=== PATIENT | male | born 1935 | race African-American/Black ===

== ENCOUNTER 2019-04-10 10:56 | Emergency (ER) | payer MEDICARE, BC | END 2019-04-10 12:14 | disposition home or self-care (01) | LOC: ERS 10:56 | DX: H10.022 Other mucopurulent conjunctivitis, left eye (principal); I10 Essential (primary) hypertension | CPT/HCPCS: 99283 ==

== ENCOUNTER 2020-01-13 13:25 | Outpatient (CLI) | payer MEDICARE, BC ==
--- NOTE | 2020-01-13 15:12 | MRI ---
EXAM: MRI of the pelvis/prostate without and with contrast HISTORY: Family history of prostate cancer with elevated PSA COMPARISON: None TECHNIQUE: Multiplanar multisequence MR images were obtained of the pelvis without and with IV contra st. Evaluation of this exam was performed with a student[employer] workstation. FINDINGS: There is a 2.2 cm area of low T2 signal within the right aspect of the prostate extending from the ap ex to the mid gland. This involves both the central gland and peripheral zone. This demonstrates restricted diffusion and low signal on ADC map. This also demonstrates enhancement with washout martínez cteristics. Seminal vesicles: Intact without abnormality Neurovascular bundles: Intact Pelvic lymph nodes: No pelvic adenopathy Other visualized intrapelvic structures: Unremarkable Osseous structures: No marrow signal abnormality IMPRESSION: PI-RADS Category 5-very high likelihood that a clinically significant cancer is present.
== END 2020-01-13 13:26 | disposition home or self-care (01) ==
LOC: TBSIIMAG 13:25
PROVIDERS: ATTEND Urology
DX: R97.20 Elevated prostate specific antigen [PSA] (principal)
CPT/HCPCS: 72197

== ENCOUNTER 2020-07-23 19:57 | Emergency (ER) | payer MEDICARE, BC ==
[2020-07-23 20:41] LABS: #Lymphocytes 1.8 thou/uL (1.20-3.40); #Monocytes 0.5 thou/uL (0.11-0.59); #Neutrophils 6.7 thou/uL (1.40-6.50); %Basophils 0.2 % (0.0-1.0); %Eosinophils 0.4 % (0.0-10.0); %Lymphocytes 19.7 % (21.0-51.0); %Monocytes 5.4 % (0.0-10.0); %Neutrophils 74.3 % (42.0-75.0); Hemoglobin 14.4 g/dL (14.0-18.0); Mean Corpuscular HGB CONC 32.7 g/dL (32.0-36.0); Mean Corpuscular Hemoglobin 29.1 pg (27.0-31.0); Mean Corpuscular Volume 89.1 fL (78.0-98.0); Mean Platelet Volume 10.8 fL (7.4-10.4); Platelet Count 205 thou/uL (130-400); RBC Distribution Width 14.4 % (11.5-14.5); Red Blood Cell (RBC) Count 4.96 mill/uL (4.70-6.10)
[2020-07-23 20:57] LABS: ALT (SGPT) 13 U/L (8-55); AST (SGOT) 16 U/L (5-34); Albumin 3.9 g/dL (3.4-4.8); Alkaline Phosphatase 99 U/L (40-110); Anion Gap 17 mmol/L (10-20); BUN (Urea Nitrogen) 26 mg/dL (8.4-25.7); Bilirubin, Total 0.7 mg/dL (0.2-1.2); Calc. Creatinine Clearance 0 mL/min (70-130); Calcium 9.6 mg/dL (7.8-10.44); Carbon Dioxide 20 mmol/L (23-31); Chloride 107 mmol/L (98-107); Globulin 4.1 g/dL (2.4-3.5); Glucose 112 mg/dL (83-110); Potassium 3.9 mmol/L (3.5-5.1); Sodium 140 mmol/L (136-145)
[2020-07-23 21:48] LABS: Bacteria/HPF 4+ HPF (None Seen); Bilirubin Negative (Negative); Blood, Urine 1+ (Negative); Clarity Clear (Clear); Glucose, Urine (Dipstick) Normal (Negative); Ketone, Urine Negative (Negative); Leukocyte 500 Leu/uL (Negative); Nitrite 2+ (Negative); Protein, Urine (Dipstick) 70 mg/dL (Neg-Trace); RBC/HPF 0-3 HPF (0-3); Specific Gravity, Urine 1.021 (1.002-1.036); Squamous Epithelial 0-3 HPF (0-3); Urobilinogen Normal mg/dL (Less than 2); WBC/HPF 21-50 HPF (0-3); pH, Urine 5.5 (5.0-9.0)
[2020-07-23] MEDS ORDERED: cefTRIAXone\\ROCEPHIN 1 GM VIAL ONE (23:32)
== END 2020-07-24 00:09 | disposition home or self-care (01) ==
LOC: ERS 19:57
DX: N12 Tubulo-interstitial nephritis, not specified as acute or chronic (principal); E78.5 Hyperlipidemia, unspecified; E78.00 Pure hypercholesterolemia, unspecified; I10 Essential (primary) hypertension; Z79.82 Long term (current) use of aspirin; Z79.899 Other long term (current) drug therapy
CPT/HCPCS: 36415; 36416; 51701; 80053; 81003; 81015; 83605; 83880; 84484; 85025; 85379; 87077; 87086; 87186; 93005; 96365; J0696

== ENCOUNTER 2020-07-27 10:53 | Inpatient (IN) | payer MEDICARE, BC ==
[2020-07-27] MEDS ORDERED: cefTRIAXone\\ROCEPHIN 2 GM VIAL ONE (11:09)
[2020-07-27 11:19] LABS: Bacteria/HPF None Seen HPF (None Seen); Bilirubin Negative (Negative); Blood, Urine 1+ (Negative); Clarity Clear (Clear); Glucose, Urine (Dipstick) Normal (Negative); Ketone, Urine Negative (Negative); Leukocyte Negative Leu/uL (Negative); Nitrite Negative (Negative); Protein, Urine (Dipstick) 200 mg/dL (Neg-Trace); RBC/HPF 0-3 HPF (0-3); Specific Gravity, Urine 1.024 (1.002-1.036); Squamous Epithelial 0-3 HPF (0-3); Urobilinogen Normal mg/dL (Less than 2); WBC/HPF 0-3 HPF (0-3)
[2020-07-27] MEDS ORDERED: VANCOMYCIN 2 GRAM/400 ML BAG 2 GM in Premix Bag 1 BAG IVPB SCH (11:30)
[2020-07-27 11:45] LABS: Hemoglobin 13.4 g/dL (14.0-18.0); Mean Corpuscular HGB CONC 29.9 g/dL (32.0-36.0); Mean Corpuscular Hemoglobin 26.4 pg (27.0-31.0); Mean Corpuscular Volume 88.1 fL (78.0-98.0); Mean Platelet Volume 10.9 fL (7.4-10.4); Platelet Count 217 thou/uL (130-400); RBC Distribution Width 14.4 % (11.5-14.5); Red Blood Cell (RBC) Count 5.06 mill/uL (4.70-6.10); White Blood Cell (WBC) Count 10.6 thou/uL (4.8-10.8)
[2020-07-27 12:07] LABS: ALT (SGPT) 11 U/L (8-55); AST (SGOT) 19 U/L (5-34); Albumin 3.4 g/dL (3.4-4.8); Alkaline Phosphatase 79 U/L (40-110); Anion Gap 16 mmol/L (10-20); BUN (Urea Nitrogen) 20 mg/dL (8.4-25.7); CK (CPK) 57 U/L (30-200); Calc. Creatinine Clearance 0 mL/min (70-130); Calcium 9.3 mg/dL (7.8-10.44); Carbon Dioxide 19 mmol/L (23-31); Chloride 109 mmol/L (98-107); Globulin 4.4 g/dL (2.4-3.5); Glucose 143 mg/dL (83-110); Potassium 4.4 mmol/L (3.5-5.1); Protein, Total 7.8 g/dL (5.8-8.1); Sodium 140 mmol/L (136-145)
[2020-07-27 12:10] LABS: #Lymphocytes 1.7 thou/uL (1.20-3.40); #Monocytes 0.9 thou/uL (0.11-0.59); %Basophils 0.2 % (0.0-1.0); %Eosinophils 0.1 % (0.0-10.0); %Lymphocytes 16.1 % (21.0-51.0); %Monocytes 8.4 % (0.0-10.0); %Neutrophils 75.3 % (42.0-75.0); Elliptocytes MODERATE= 6-15 cells (100X) (0-1/hpf); MDiff Complete? YES; Platelet Morphology Comment Appears Adequate
[2020-07-27 12:45] LABS: CKMB 0.4 ng/mL (0-6.6)
[2020-07-27] MEDS ORDERED: Azithromycin 500 MG VIAL ONE (13:38)
[2020-07-27] MEDS ORDERED: Diltiazem 125 MG/25 ML ONE (13:54)
[2020-07-27] MEDS ORDERED: Acetaminophen 650 MG Suppository PR PRN (15:30)
[2020-07-27 15:43] LABS: INR-International Normal Ratio 1.9; PTT 40.7 sec (22.9-36.1); Prothrombin Time 22.1 sec (12.0-14.7)
[2020-07-27] MEDS ORDERED: Aspirin Chewable 81 MG TAB ONE (16:05)
[2020-07-27 17:32] LABS: CKMB 0.7 ng/mL (0-6.6)
[2020-07-27 18:46] VITALS: BMI 34.0
[2020-07-27 18:48] LABS: Magnesium 1.9 mg/dL (1.6-2.6); Phosphorus 2.7 mg/dL (2.3-4.7)
[2020-07-27] MEDS: Cefepime 2 GM in Sodium Chloride 0.9% 100 ML IVPB SCH (20:43)
[2020-07-27] MEDS ORDERED: Warfarin Sodium 2 MG TAB PO SCH (21:30)
[2020-07-27] MEDS: Colchicine 0.6 MG TAB PO SCH (21:43)
[2020-07-28 01:46] LABS: SARS-CoV-2 PCR by NAA Not Detected (NotDetected)
[2020-07-28 04:46] LABS: #Lymphocytes 1.2 thou/uL (1.20-3.40); #Monocytes 0.7 thou/uL (0.11-0.59); #Neutrophils 8.4 thou/uL (1.40-6.50); %Basophils 0.2 % (0.0-1.0); %Eosinophils 0.1 % (0.0-10.0); %Lymphocytes 11.4 % (21.0-51.0); %Monocytes 6.7 % (0.0-10.0); %Neutrophils 81.6 % (42.0-75.0); Hemoglobin 14.2 g/dL (14.0-18.0); Mean Corpuscular HGB CONC 33.1 g/dL (32.0-36.0); Mean Corpuscular Hemoglobin 29.5 pg (27.0-31.0); Mean Corpuscular Volume 89.3 fL (78.0-98.0); Mean Platelet Volume 10.6 fL (7.4-10.4); Platelet Count 193 thou/uL (130-400); RBC Distribution Width 14.2 % (11.5-14.5); Red Blood Cell (RBC) Count 4.79 mill/uL (4.70-6.10); White Blood Cell (WBC) Count 10.3 thou/uL (4.8-10.8)
[2020-07-28 05:01] LABS: INR-International Normal Ratio 2.3; Prothrombin Time 25.6 sec (12.0-14.7)
[2020-07-28 05:09] LABS: Anion Gap 15 mmol/L (10-20); BUN (Urea Nitrogen) 19 mg/dL (8.4-25.7); Calc. Creatinine Clearance 82 mL/min (70-130); Calcium 9.6 mg/dL (7.8-10.44); Carbon Dioxide 19 mmol/L (23-31); Chloride 111 mmol/L (98-107); Glucose 144 mg/dL (83-110); Potassium 4.1 mmol/L (3.5-5.1); Sodium 141 mmol/L (136-145)
[2020-07-28] MEDS ORDERED: FLU VACC QS2020-21(65YR UP)/PF 240 MCG/0.7 ML SYRINGE IM ONE (09:00)
[2020-07-28] MEDS: Cefepime 2 GM in Sodium Chloride 0.9% 100 ML IVPB SCH ×2 (09:11→22:07)
[2020-07-28] MEDS: Acetaminophen 325 MG TAB PO PRN ×2 (10:05→23:08)
[2020-07-28] MEDS: Colchicine 0.6 MG TAB PO SCH ×2 (10:05→23:02)
[2020-07-28] MEDS: Diltiazem 125 MG in Sodium Chloride 0.9% 100 ML IVPB SCH (12:06)
[2020-07-28] MEDS: VANCOMYCIN 2 GRAM/400 ML BAG 2 GM in Premix Bag 1 BAG IVPB SCH (12:59)
[2020-07-28] MEDS ORDERED: Warfarin Sodium 3 MG TAB PO SCH (17:00)
[2020-07-28] MEDS: Senokot S 8.6-50 MG TAB PO PRN (18:26)
[2020-07-28] MEDS ORDERED: Furosemide 20 MG/2 ML VIAL SLOW IVP SCH (18:30)
[2020-07-28] MEDS: Atorvastatin Calcium 10 MG TAB PO SCH (22:07)
[2020-07-28] MEDS ORDERED: Aspirin 325 mg Enteric Coated Tablet PO SCH (22:45)
[2020-07-29] MEDS: Senokot S 8.6-50 MG TAB PO PRN (03:43)
[2020-07-29 04:32] LABS: #Eosinphils 0.2 thou/uL (0.0-0.7); #Lymphocytes 1.3 thou/uL (1.20-3.40); #Monocytes 0.6 thou/uL (0.11-0.59); #Neutrophils 7.6 thou/uL (1.40-6.50); %Basophils 0.2 % (0.0-1.0); %Eosinophils 1.8 % (0.0-10.0); %Lymphocytes 13.7 % (21.0-51.0); %Monocytes 6.3 % (0.0-10.0); %Neutrophils 78.1 % (42.0-75.0); Hemoglobin 12.8 g/dL (14.0-18.0); Mean Corpuscular HGB CONC 32.7 g/dL (32.0-36.0); Mean Corpuscular Hemoglobin 29.1 pg (27.0-31.0); Mean Corpuscular Volume 89.1 fL (78.0-98.0); Mean Platelet Volume 10.4 fL (7.4-10.4); Platelet Count 201 thou/uL (130-400); RBC Distribution Width 14.2 % (11.5-14.5); Red Blood Cell (RBC) Count 4.41 mill/uL (4.70-6.10); White Blood Cell (WBC) Count 9.7 thou/uL (4.8-10.8)
[2020-07-29 04:39] LABS: INR-International Normal Ratio 3.2; Prothrombin Time 33.4 sec (12.0-14.7)
[2020-07-29 04:51] LABS: Anion Gap 13 mmol/L (10-20); BUN (Urea Nitrogen) 27 mg/dL (8.4-25.7); Calc. Creatinine Clearance 73 mL/min (70-130); Calcium 9.3 mg/dL (7.8-10.44); Carbon Dioxide 19 mmol/L (23-31); Chloride 109 mmol/L (98-107); Glucose 127 mg/dL (83-110); Potassium 3.7 mmol/L (3.5-5.1); Sodium 137 mmol/L (136-145)
[2020-07-29] MEDS: Furosemide 20 MG/2 ML VIAL SLOW IVP SCH ×2 (05:25→14:03)
[2020-07-29] MEDS: Acetaminophen 325 MG TAB PO PRN (05:29)
[2020-07-29] MEDS: Cefepime 2 GM in Sodium Chloride 0.9% 100 ML IVPB SCH ×2 (09:06→09:10)
[2020-07-29] MEDS: Colchicine 0.6 MG TAB PO SCH ×2 (11:04→22:13)
[2020-07-29 11:44] LABS: Vancomycin, Trough 12.5 ug/mL
[2020-07-29] MEDS: Vancomycin 1 GM in Premix Bag 1 BAG IVPB SCH (14:04)
[2020-07-29] MEDS: Diltiazem 125 MG in Sodium Chloride 0.9% 100 ML IVPB SCH (16:09)
[2020-07-29] MEDS: VANCOMYCIN 2 GRAM/400 ML BAG 2 GM in Premix Bag 1 BAG IVPB SCH (16:38)
[2020-07-29] MEDS ORDERED: Warfarin Sodium 2 MG TAB PO SCH (17:00)
[2020-07-29] MEDS ORDERED: Potassium Chloride 20 MEQ TAB PO SCH (19:00)
[2020-07-29] MEDS: Atorvastatin Calcium 10 MG TAB PO SCH (22:13)
[2020-07-30] MEDS: Vancomycin 1 GM in Premix Bag 1 BAG IVPB SCH ×2 (00:24→14:18)
[2020-07-30 04:33] LABS: #Eosinphils 0.3 thou/uL (0.0-0.7); #Lymphocytes 1.1 thou/uL (1.20-3.40); #Monocytes 0.5 thou/uL (0.11-0.59); #Neutrophils 5.6 thou/uL (1.40-6.50); %Basophils 0.2 % (0.0-1.0); %Eosinophils 3.6 % (0.0-10.0); %Lymphocytes 14.9 % (21.0-51.0); %Monocytes 6.1 % (0.0-10.0); %Neutrophils 75.2 % (42.0-75.0); Mean Corpuscular HGB CONC 31.6 g/dL (32.0-36.0); Mean Corpuscular Hemoglobin 28.1 pg (27.0-31.0); Mean Corpuscular Volume 88.8 fL (78.0-98.0); Mean Platelet Volume 9.9 fL (7.4-10.4); Platelet Count 213 thou/uL (130-400); Red Blood Cell (RBC) Count 4.26 mill/uL (4.70-6.10); White Blood Cell (WBC) Count 7.4 thou/uL (4.8-10.8)
[2020-07-30 04:41] LABS: INR-International Normal Ratio 2.8; Prothrombin Time 30.2 sec (12.0-14.7)
[2020-07-30 04:57] LABS: Anion Gap 12 mmol/L (10-20); BUN (Urea Nitrogen) 27 mg/dL (8.4-25.7); Calc. Creatinine Clearance 80 mL/min (70-130); Calcium 8.8 mg/dL (7.8-10.44); Carbon Dioxide 21 mmol/L (23-31); Chloride 109 mmol/L (98-107); Glucose 118 mg/dL (83-110); Potassium 3.8 mmol/L (3.5-5.1); Sodium 138 mmol/L (136-145)
[2020-07-30] MEDS: Furosemide 20 MG/2 ML VIAL SLOW IVP SCH ×2 (06:24→14:18)
[2020-07-30] MEDS: Finasteride 5 MG TAB PO SCH (08:58)
[2020-07-30] MEDS: Cefepime 2 GM in Sodium Chloride 0.9% 100 ML IVPB SCH ×2 (08:58→20:30)
[2020-07-30] MEDS: Aspirin 81 mg Enteric Coated Tablet PO SCH (08:58)
[2020-07-30] MEDS: Colchicine 0.6 MG TAB PO SCH (11:53)
[2020-07-30] MEDS: Warfarin Sodium 2 MG TAB PO SCH (17:05)
[2020-07-30] MEDS ORDERED: Fleet Enema 133 ML BOT PR PRN (18:36)
[2020-07-30] MEDS ORDERED: Bisacodyl 10 MG SUPP PR PRN (18:36)
[2020-07-30] MEDS: Atorvastatin Calcium 10 MG TAB PO SCH (20:30)
[2020-07-30] MEDS: Senokot S 8.6-50 MG TAB PO SCH (20:31)
[2020-07-31 00:19] LABS: Vancomycin, Trough 17.1 ug/mL
[2020-07-31] MEDS: Colchicine 0.6 MG TAB PO SCH ×3 (01:00→23:37)
[2020-07-31] MEDS: Vancomycin 1 GM in Premix Bag 1 BAG IVPB SCH (01:16)
[2020-07-31 04:26] LABS: #Eosinphils 0.2 thou/uL (0.0-0.7); #Lymphocytes 1.2 thou/uL (1.20-3.40); #Monocytes 0.5 thou/uL (0.11-0.59); #Neutrophils 5.3 thou/uL (1.40-6.50); %Basophils 0.5 % (0.0-1.0); %Lymphocytes 16.3 % (21.0-51.0); %Monocytes 6.7 % (0.0-10.0); %Neutrophils 73.5 % (42.0-75.0); Hemoglobin 12.3 g/dL (14.0-18.0); Mean Corpuscular HGB CONC 30.1 g/dL (32.0-36.0); Mean Corpuscular Hemoglobin 26.7 pg (27.0-31.0); Mean Corpuscular Volume 88.7 fL (78.0-98.0); Mean Platelet Volume 9.9 fL (7.4-10.4); Platelet Count 236 thou/uL (130-400); RBC Distribution Width 13.9 % (11.5-14.5); White Blood Cell (WBC) Count 7.1 thou/uL (4.8-10.8)
[2020-07-31 04:29] LABS: INR-International Normal Ratio 2.6; Prothrombin Time 28.5 sec (12.0-14.7)
[2020-07-31 04:44] LABS: Anion Gap 11 mmol/L (10-20); BUN (Urea Nitrogen) 25 mg/dL (8.4-25.7); Calc. Creatinine Clearance 88 mL/min (70-130); Calcium 8.7 mg/dL (7.8-10.44); Carbon Dioxide 22 mmol/L (23-31); Chloride 108 mmol/L (98-107); Glucose 140 mg/dL (83-110); Potassium 3.5 mmol/L (3.5-5.1); Sodium 137 mmol/L (136-145)
[2020-07-31] MEDS: Cefdinir 300 MG CAP PO SCH ×2 (08:32→20:35)
[2020-07-31] MEDS: Finasteride 5 MG TAB PO SCH (08:33)
[2020-07-31] MEDS: Senokot S 8.6-50 MG TAB PO SCH ×2 (08:33→20:35)
[2020-07-31] MEDS: Polyethylene Glycol 3350 17 GM Packet PO SCH (08:33)
[2020-07-31] MEDS: Aspirin 81 mg Enteric Coated Tablet PO SCH (08:33)
[2020-07-31] MEDS: Furosemide 20 MG TAB PO SCH ×2 (08:33→15:00)
[2020-07-31] MEDS: Warfarin Sodium 2 MG TAB PO SCH (16:56)
[2020-07-31] MEDS: Atorvastatin Calcium 10 MG TAB PO SCH (20:34)
[2020-08-01 06:36] LABS: #Eosinphils 0.2 thou/uL (0.0-0.7); #Lymphocytes 1.4 thou/uL (1.20-3.40); #Monocytes 0.6 thou/uL (0.11-0.59); %Eosinophils 3.8 % (0.0-10.0); %Lymphocytes 22.6 % (21.0-51.0); %Monocytes 9.8 % (0.0-10.0); %Neutrophils 63.8 % (42.0-75.0); Hemoglobin 11.9 g/dL (14.0-18.0); Mean Corpuscular HGB CONC 30.9 g/dL (32.0-36.0); Mean Corpuscular Hemoglobin 27.5 pg (27.0-31.0); Mean Corpuscular Volume 89.2 fL (78.0-98.0); Mean Platelet Volume 9.6 fL (7.4-10.4); Platelet Count 242 thou/uL (130-400); RBC Distribution Width 13.9 % (11.5-14.5); Red Blood Cell (RBC) Count 4.33 mill/uL (4.70-6.10); White Blood Cell (WBC) Count 6.3 thou/uL (4.8-10.8)
[2020-08-01 06:44] LABS: INR-International Normal Ratio 2.4; Prothrombin Time 26.9 sec (12.0-14.7)
[2020-08-01 07:01] LABS: Anion Gap 13 mmol/L (10-20); BUN (Urea Nitrogen) 24 mg/dL (8.4-25.7); Calc. Creatinine Clearance 92 mL/min (70-130); Calcium 8.6 mg/dL (7.8-10.44); Carbon Dioxide 21 mmol/L (23-31); Chloride 107 mmol/L (98-107); Glucose 115 mg/dL (83-110); Potassium 3.6 mmol/L (3.5-5.1); Sodium 137 mmol/L (136-145)
[2020-08-01] MEDS: Senokot S 8.6-50 MG TAB PO SCH ×2 (08:07→21:46)
[2020-08-01] MEDS: Aspirin 81 mg Enteric Coated Tablet PO SCH (08:07)
[2020-08-01] MEDS: Cefdinir 300 MG CAP PO SCH ×2 (08:07→21:46)
[2020-08-01] MEDS: Finasteride 5 MG TAB PO SCH (08:07)
[2020-08-01] MEDS: Furosemide 20 MG TAB PO SCH ×2 (08:07→13:44)
[2020-08-01] MEDS: Polyethylene Glycol 3350 17 GM Packet PO SCH (08:26)
[2020-08-01] MEDS: Colchicine 0.6 MG TAB PO SCH (10:42)
[2020-08-01] MEDS: Warfarin Sodium 2 MG TAB PO SCH (16:46)
[2020-08-01] MEDS: Atorvastatin Calcium 10 MG TAB PO SCH (21:46)
[2020-08-02] MEDS: Colchicine 0.6 MG TAB PO SCH ×4 (00:07→22:07)
[2020-08-02 06:11] LABS: Prothrombin Time 22.6 sec (12.0-14.7)
[2020-08-02] MEDS: Aspirin 81 mg Enteric Coated Tablet PO SCH (10:14)
[2020-08-02] MEDS: Cefdinir 300 MG CAP PO SCH ×2 (10:14→21:28)
[2020-08-02] MEDS: Senokot S 8.6-50 MG TAB PO SCH ×2 (10:15→21:15)
[2020-08-02] MEDS: Polyethylene Glycol 3350 17 GM Packet PO SCH (10:15)
[2020-08-02] MEDS: Finasteride 5 MG TAB PO SCH (10:15)
[2020-08-02] MEDS: Furosemide 20 MG TAB PO SCH ×2 (10:15→15:12)
[2020-08-02] MEDS: Warfarin Sodium 2.5 MG TAB PO SCH (16:46)
[2020-08-02] MEDS: Atorvastatin Calcium 10 MG TAB PO SCH (21:28)
[2020-08-03 06:02] LABS: INR-International Normal Ratio 2.1; Prothrombin Time 23.6 sec (12.0-14.7)
[2020-08-03] MEDS: Polyethylene Glycol 3350 17 GM Packet PO SCH (08:21)
[2020-08-03] MEDS: Senokot S 8.6-50 MG TAB PO SCH ×2 (08:21→20:34)
[2020-08-03] MEDS: Colchicine 0.6 MG TAB PO SCH ×2 (08:21→23:17)
[2020-08-03] MEDS: Aspirin 81 mg Enteric Coated Tablet PO SCH (08:24)
[2020-08-03] MEDS: Furosemide 20 MG TAB PO SCH ×2 (08:24→14:12)
[2020-08-03] MEDS: Cefdinir 300 MG CAP PO SCH ×2 (08:24→20:34)
[2020-08-03] MEDS: Multivitamin W/ Minerals 1 TAB PO SCH (08:24)
[2020-08-03] MEDS: Finasteride 5 MG TAB PO SCH (08:25)
[2020-08-03] MEDS: Allopurinol 100 MG TAB PO SCH (08:25)
[2020-08-03] MEDS ORDERED: Tamsulosin HCl 0.4 MG CAP PO SCH (09:00)
[2020-08-03 09:11] LABS: Anion Gap 11 mmol/L (10-20); BUN (Urea Nitrogen) 19 mg/dL (8.4-25.7); Calc. Creatinine Clearance 100 mL/min (70-130); Calcium 9.2 mg/dL (7.8-10.44); Carbon Dioxide 26 mmol/L (23-31); Chloride 106 mmol/L (98-107); Glucose 113 mg/dL (83-110); Potassium 3.5 mmol/L (3.5-5.1); Sodium 139 mmol/L (136-145)
[2020-08-03] MEDS: Warfarin Sodium 2.5 MG TAB PO SCH (17:24)
[2020-08-03] MEDS: Atorvastatin Calcium 10 MG TAB PO SCH (20:35)
[2020-08-03] MEDS ORDERED: Doxazosin Mesylate 4 MG TAB PO SCH (21:00)
[2020-08-03] MEDS ORDERED: Non-Formulary Item 1 EACH (Doxazosin Mesylate [Cardura] 8 MG Tablet) PO SCH (21:00)
[2020-08-04 07:10] VITALS: BP 135/89; TEMP 98.1
[2020-08-04 07:19] LABS: Anion Gap 10 mmol/L (10-20); BUN (Urea Nitrogen) 21 mg/dL (8.4-25.7); Calc. Creatinine Clearance 86 mL/min (70-130); Calcium 8.6 mg/dL (7.8-10.44); Carbon Dioxide 24 mmol/L (23-31); Chloride 108 mmol/L (98-107); Glucose 118 mg/dL (83-110); Potassium 3.3 mmol/L (3.5-5.1); Sodium 139 mmol/L (136-145)
[2020-08-04] MEDS: Cefdinir 300 MG CAP PO SCH (08:40)
[2020-08-04] MEDS: Aspirin 81 mg Enteric Coated Tablet PO SCH (08:40)
[2020-08-04] MEDS: Multivitamin W/ Minerals 1 TAB PO SCH (08:41)
[2020-08-04] MEDS: Senokot S 8.6-50 MG TAB PO SCH (08:41)
[2020-08-04] MEDS: Finasteride 5 MG TAB PO SCH (08:41)
[2020-08-04] MEDS: Polyethylene Glycol 3350 17 GM Packet PO SCH (08:41)
[2020-08-04] MEDS: Furosemide 20 MG TAB PO SCH ×2 (08:41→14:21)
[2020-08-04] MEDS: Allopurinol 100 MG TAB PO SCH (08:41)
[2020-08-04] MEDS: Colchicine 0.6 MG TAB PO SCH (12:10)
== END 2020-08-04 16:05 | disposition swing bed (61) | DRG 871 ==
LOC: ERS 10:53 → 2NO 14:24 → T4-A 07-31 15:59
PROVIDERS: ADMIT Internal Medicine; ATTEND Internal Medicine
DX: A41.9 Sepsis, unspecified organism (principal); I50.33 Acute on chronic diastolic (congestive) heart failure; J18.9 Pneumonia, unspecified organism; I13.0 Hypertensive heart and chronic kidney disease with heart failure and stage 1 through stage 4 chronic kidney disease, or unspecified chronic kidney disease; L03.114 Cellulitis of left upper limb; I48.92 Unspecified atrial flutter; I48.19 Other persistent atrial fibrillation; N30.00 Acute cystitis without hematuria; I24.8 Other forms of acute ischemic heart disease; Z20.822 Contact with and (suspected) exposure to COVID-19; E78.5 Hyperlipidemia, unspecified; I25.10 Atherosclerotic heart disease of native coronary artery without angina pectoris; M10.9 Gout, unspecified; N40.0 Benign prostatic hyperplasia without lower urinary tract symptoms; E78.00 Pure hypercholesterolemia, unspecified; N18.9 Chronic kidney disease, unspecified; I35.0 Nonrheumatic aortic (valve) stenosis; Z28.21 Immunization not carried out because of patient refusal; Z95.5 Presence of coronary angioplasty implant and graft; Z79.890 Hormone replacement therapy; Z79.01 Long term (current) use of anticoagulants; Z79.899 Other long term (current) drug therapy; Z79.82 Long term (current) use of aspirin; Z87.898 Personal history of other specified conditions
CPT/HCPCS: 36415; 36416; 51701; 70450; 70551; 71045; 80048; 80053; 80202; 81003; 81015; 82550; 82553; 83605; 83735; 83880; 84100; 84484; 84550; 85025; 85379; 85610; 85730; 87040; 87077; 87086; 87186; 87633; 87635; 87798; 93005; 96365; 96366; 96367; 96375; J0456; J0692; J0696; J1940; J3370; J3490; U0003; U0005

== ENCOUNTER 2020-09-10 14:51 | Inpatient (IN) | payer MEDICARE, BC ==
[2020-09-10 15:30] LABS: #Lymphocytes 1.1 thou/uL (1.20-3.40); #Monocytes 0.6 thou/uL (0.11-0.59); #Neutrophils 6.6 thou/uL (1.40-6.50); %Basophils 0.1 % (0.0-1.0); %Eosinophils 0.4 % (0.0-10.0); %Lymphocytes 13.1 % (21.0-51.0); %Monocytes 6.8 % (0.0-10.0); %Neutrophils 79.6 % (42.0-75.0); Hemoglobin 13.2 g/dL (14.0-18.0); Mean Corpuscular HGB CONC 31.8 g/dL (32.0-36.0); Mean Corpuscular Hemoglobin 28.1 pg (27.0-31.0); Mean Corpuscular Volume 88.4 fL (78.0-98.0); Mean Platelet Volume 10.1 fL (7.4-10.4); Platelet Count 234 thou/uL (130-400); RBC Distribution Width 14.8 % (11.5-14.5); Red Blood Cell (RBC) Count 4.69 mill/uL (4.70-6.10); White Blood Cell (WBC) Count 8.3 thou/uL (4.8-10.8)
[2020-09-10 15:50] LABS: ALT (SGPT) 10 U/L (8-55); AST (SGOT) 17 U/L (5-34); Albumin 3.6 g/dL (3.4-4.8); Alkaline Phosphatase 94 U/L (40-110); Anion Gap 16 mmol/L (10-20); BUN (Urea Nitrogen) 12 mg/dL (8.4-25.7); Bilirubin, Total 0.9 mg/dL (0.2-1.2); CK (CPK) 35 U/L (30-200); Calc. Creatinine Clearance 0 mL/min (70-130); Calcium 9.6 mg/dL (7.8-10.44); Carbon Dioxide 20 mmol/L (23-31); Chloride 107 mmol/L (98-107); Globulin 3.6 g/dL (2.4-3.5); Glucose 206 mg/dL (83-110); Potassium 3.8 mmol/L (3.5-5.1); Protein, Total 7.2 g/dL (5.8-8.1); Sodium 139 mmol/L (136-145)
[2020-09-10 17:33] LABS: Bacteria/HPF None Seen HPF (None Seen); Bilirubin Negative (Negative); Blood, Urine Negative (Negative); Clarity Clear (Clear); Glucose, Urine (Dipstick) Normal (Negative); Ketone, Urine Negative (Negative); Leukocyte Negative Leu/uL (Negative); Nitrite Negative (Negative); Protein, Urine (Dipstick) 50 mg/dL (Neg-Trace); RBC/HPF 0-3 HPF (0-3); Specific Gravity, Urine 1.015 (1.002-1.036); Squamous Epithelial 0-3 HPF (0-3); Urobilinogen Normal mg/dL (Less than 2); WBC/HPF 0-3 HPF (0-3); pH, Urine 6.5 (5.0-9.0)
[2020-09-10] MEDS ORDERED: Metoprolol Tartrate 50 MG TAB ONE (18:18)
[2020-09-10 19:22] LABS: Troponin I 0.016 ng/mL (< 0.028)
[2020-09-10] MEDS ORDERED: Ondansetron ODT 4 MG TAB SL PRN (20:15)
[2020-09-10] MEDS ORDERED: Acetaminophen 325 MG TAB PO PRN (20:15)
[2020-09-10] MEDS ORDERED: Ondansetron PF 4 MG/2 ML Vial IVP PRN (20:15)
[2020-09-10 21:59] LABS: Troponin I 0.016 ng/mL (< 0.028)
[2020-09-10] MEDS ORDERED: Furosemide 40 MG/4 ML VIAL SLOW IVP SCH (22:30)
[2020-09-11 01:15] LABS: SARS-CoV-2 PCR by NAA Not Detected (NotDetected)
[2020-09-11] MEDS ORDERED: Warfarin Sodium 2 MG TAB PO SCH (09:00)
[2020-09-11] MEDS ORDERED: Lisinopril 20 MG TAB PO SCH (09:00)
[2020-09-11] MEDS: Amlodipine 5 MG TAB PO SCH (09:57)
[2020-09-11] MEDS: Aspirin Chewable 81 MG TAB PO SCH (09:57)
[2020-09-11] MEDS: Polyethylene Glycol 3350 17 GM Packet PO SCH (09:57)
[2020-09-11] MEDS: Finasteride 5 MG TAB PO SCH (09:58)
[2020-09-11] MEDS: Furosemide 40 MG/4 ML VIAL SLOW IVP SCH (10:12)
[2020-09-11 10:54] LABS: INR-International Normal Ratio 1.4; Prothrombin Time 17.6 sec (12.0-14.7)
[2020-09-11] MEDS: Warfarin Sodium 2 MG TAB PO SCH (16:02)
[2020-09-11] MEDS ORDERED: Cyclobenzaprine 10 MG TAB PO SCH (18:15)
[2020-09-11] MEDS: Atorvastatin Calcium 10 MG TAB PO SCH (20:05)
[2020-09-11] MEDS ORDERED: Simvastatin 20 MG TAB PO SCH (21:00)
[2020-09-11] MEDS ORDERED: Metoprolol Tartrate 5 MG/5 ML VIAL IVP SCH (21:45)
[2020-09-11] MEDS: Diclofenac 1% 100 GM GEL TP SCH (21:50)
[2020-09-11 22:46] LABS: Anion Gap 18 mmol/L (10-20); BUN (Urea Nitrogen) 20 mg/dL (8.4-25.7); Calc. Creatinine Clearance 73 mL/min (70-130); Calcium 9.7 mg/dL (7.8-10.44); Carbon Dioxide 22 mmol/L (23-31); Chloride 104 mmol/L (98-107); Glucose 118 mg/dL (83-110); Magnesium 1.8 mg/dL (1.6-2.6); Potassium 3.6 mmol/L (3.5-5.1); Sodium 140 mmol/L (136-145)
[2020-09-11] MEDS ORDERED: Magnesium 2 GM/50 ML 2 GM in Premix Bag 1 BAG IVPB SCH (23:15)
[2020-09-11] MEDS ORDERED: Diltiazem 125 MG in Sodium Chloride 0.9% 100 ML IVPB SCH (23:30)
[2020-09-11] MEDS: Potassium Chloride 20 MEQ TAB PO SCH (23:32)
[2020-09-12] MEDS ORDERED: Acetaminophen 650 MG Suppository PR PRN (00:20)
[2020-09-12] MEDS: Potassium Chloride 20 MEQ TAB PO SCH (00:35)
[2020-09-12] MEDS ORDERED: Diltiazem 125 MG in Sodium Chloride 0.9% 100 ML IVPB SCH ×2 (00:39→01:35)
[2020-09-12 00:58] LABS: #Lymphocytes 1.4 thou/uL (1.20-3.40); #Monocytes 0.7 thou/uL (0.11-0.59); #Neutrophils 7.7 thou/uL (1.40-6.50); %Basophils 0.1 % (0.0-1.0); %Eosinophils 0.2 % (0.0-10.0); %Lymphocytes 13.9 % (21.0-51.0); %Monocytes 7.3 % (0.0-10.0); %Neutrophils 78.5 % (42.0-75.0); Hemoglobin 13.2 g/dL (14.0-18.0); Mean Corpuscular HGB CONC 31.8 g/dL (32.0-36.0); Mean Corpuscular Hemoglobin 28.3 pg (27.0-31.0); Mean Corpuscular Volume 88.9 fL (78.0-98.0); Mean Platelet Volume 10.3 fL (7.4-10.4); Platelet Count 239 thou/uL (130-400); RBC Distribution Width 14.8 % (11.5-14.5); Red Blood Cell (RBC) Count 4.67 mill/uL (4.70-6.10); White Blood Cell (WBC) Count 9.8 thou/uL (4.8-10.8)
[2020-09-12 01:14] LABS: Lactic Acid 2.3 mmol/L (0.5-2.2)
[2020-09-12] MEDS: Potassium Chloride 20 MEQ in Premix Bag 1 BAG IVPB SCH ×2 (01:16→03:28)
[2020-09-12] MEDS ORDERED: Cefepime 1 GM in Sodium Chloride 0.9% 100 ML IVPB SCH (02:00)
[2020-09-12] MEDS ORDERED: Digoxin 0.5 MG/2 ML AMP SLOW IVP SCH (02:15)
[2020-09-12] MEDS ORDERED: Vancomycin 1 GM in Premix Bag 1 BAG IVPB SCH (03:00)
[2020-09-12 04:35] LABS: INR-International Normal Ratio 1.8
[2020-09-12 04:51] LABS: Anion Gap 15 mmol/L (10-20); BUN (Urea Nitrogen) 23 mg/dL (8.4-25.7); Calc. Creatinine Clearance 62 mL/min (70-130); Calcium 9.2 mg/dL (7.8-10.44); Carbon Dioxide 21 mmol/L (23-31); Chloride 105 mmol/L (98-107); Glucose 159 mg/dL (83-110); Magnesium 2.2 mg/dL (1.6-2.6); Potassium 3.9 mmol/L (3.5-5.1); Sodium 137 mmol/L (136-145)
[2020-09-12] MEDS: Aspirin Chewable 81 MG TAB PO SCH (10:07)
[2020-09-12] MEDS: Polyethylene Glycol 3350 17 GM Packet PO SCH (10:07)
[2020-09-12] MEDS: Amlodipine 5 MG TAB PO SCH (10:26)
[2020-09-12] MEDS ORDERED: Furosemide 20 MG/2 ML VIAL SLOW IVP SCH (10:30)
[2020-09-12] MEDS: Finasteride 5 MG TAB PO SCH (10:35)
[2020-09-12] MEDS: Diclofenac 1% 100 GM GEL TP SCH ×4 (10:39→21:38)
[2020-09-12] MEDS: Furosemide 40 MG/4 ML VIAL SLOW IVP SCH (10:40)
[2020-09-12] MEDS: Warfarin Sodium 2 MG TAB PO SCH (17:00)
[2020-09-12] MEDS: Acetaminophen 325 MG TAB PO PRN (17:32)
[2020-09-12] MEDS: Atorvastatin Calcium 10 MG TAB PO SCH (20:44)
[2020-09-12 22:00] LABS: Bilirubin Negative (Negative); Blood, Urine Trace (Negative); Clarity Turbid (Clear); Glucose, Urine (Dipstick) Normal (Negative); Ketone, Urine Negative (Negative); Leukocyte 500 Leu/uL (Negative); Mucous/LPF Rare LPF (<2+); Nitrite Negative (Negative); Protein, Urine (Dipstick) 20 mg/dL (Neg-Trace); Renal Epithelial 0-3 HPF (None Seen); Specific Gravity, Urine 1.025 (1.002-1.036); Squamous Epithelial 0-3 HPF (0-3); Urobilinogen Normal mg/dL (Less than 2); WBC/HPF Greater than 50 HPF (0-3)
[2020-09-12 22:03] LABS: Bacteria/HPF 1+ HPF (None Seen)
[2020-09-12 22:05] LABS: Urine Culture Reflex Yes Yes
[2020-09-13 05:13] LABS: INR-International Normal Ratio 1.8; Prothrombin Time 21.7 sec (12.0-14.7)
[2020-09-13 05:35] LABS: Anion Gap 12 mmol/L (10-20); BUN (Urea Nitrogen) 35 mg/dL (8.4-25.7); Calc. Creatinine Clearance 59 mL/min (70-130); Calcium 9.7 mg/dL (7.8-10.44); Carbon Dioxide 24 mmol/L (23-31); Chloride 103 mmol/L (98-107); Glucose 129 mg/dL (83-110); Magnesium 2.1 mg/dL (1.6-2.6); Potassium 3.6 mmol/L (3.5-5.1); Sodium 135 mmol/L (136-145)
[2020-09-13] MEDS: Amlodipine 5 MG TAB PO SCH (08:08)
[2020-09-13] MEDS: Aspirin Chewable 81 MG TAB PO SCH (08:08)
[2020-09-13] MEDS: Furosemide 20 MG/2 ML VIAL SLOW IVP SCH (08:11)
[2020-09-13] MEDS: Finasteride 5 MG TAB PO SCH (08:11)
[2020-09-13] MEDS: Polyethylene Glycol 3350 17 GM Packet PO SCH (08:11)
[2020-09-13] MEDS: Diclofenac 1% 100 GM GEL TP SCH ×4 (08:12→20:49)
[2020-09-13] MEDS: Warfarin Sodium 2 MG TAB PO SCH (16:49)
[2020-09-13] MEDS: Atorvastatin Calcium 10 MG TAB PO SCH (20:48)
[2020-09-14 05:32] LABS: INR-International Normal Ratio 1.8; Prothrombin Time 20.9 sec (12.0-14.7)
[2020-09-14 05:47] LABS: Anion Gap 13 mmol/L (10-20); BUN (Urea Nitrogen) 26 mg/dL (8.4-25.7); Calc. Creatinine Clearance 92 mL/min (70-130); Carbon Dioxide 24 mmol/L (23-31); Chloride 104 mmol/L (98-107); Glucose 119 mg/dL (83-110); Potassium 3.9 mmol/L (3.5-5.1); Sodium 137 mmol/L (136-145)
[2020-09-14] MEDS: Polyethylene Glycol 3350 17 GM Packet PO SCH (08:21)
[2020-09-14] MEDS: Amlodipine 5 MG TAB PO SCH (08:21)
[2020-09-14] MEDS: Aspirin Chewable 81 MG TAB PO SCH (08:22)
[2020-09-14] MEDS: Finasteride 5 MG TAB PO SCH (08:22)
[2020-09-14] MEDS: Furosemide 20 MG/2 ML VIAL SLOW IVP SCH (08:23)
[2020-09-14] MEDS: Diclofenac 1% 100 GM GEL TP SCH ×4 (10:38→20:52)
[2020-09-14 11:59] VITALS: BMI 32.1
[2020-09-14] MEDS: Acetaminophen 325 MG TAB PO PRN (15:02)
[2020-09-14] MEDS: Warfarin Sodium 2 MG TAB PO SCH (17:06)
[2020-09-14] MEDS: Atorvastatin Calcium 10 MG TAB PO SCH (20:51)
[2020-09-15 07:40] LABS: INR-International Normal Ratio 2.1
[2020-09-15] MEDS: Finasteride 5 MG TAB PO SCH (09:07)
[2020-09-15] MEDS: Diclofenac 1% 100 GM GEL TP SCH ×4 (09:07→21:08)
[2020-09-15] MEDS: Furosemide 20 MG/2 ML VIAL SLOW IVP SCH (09:07)
[2020-09-15] MEDS: Polyethylene Glycol 3350 17 GM Packet PO SCH (09:07)
[2020-09-15] MEDS: Amlodipine 5 MG TAB PO SCH (09:07)
[2020-09-15] MEDS: Aspirin Chewable 81 MG TAB PO SCH (09:07)
[2020-09-15] MEDS: Warfarin Sodium 2 MG TAB PO SCH (16:34)
[2020-09-15] MEDS: Atorvastatin Calcium 10 MG TAB PO SCH (21:08)
[2020-09-16] MEDS: Diclofenac 1% 100 GM GEL TP SCH ×2 (07:41→12:57)
[2020-09-16] MEDS: Amlodipine 5 MG TAB PO SCH (07:42)
[2020-09-16] MEDS: Furosemide 20 MG/2 ML VIAL SLOW IVP SCH (07:43)
[2020-09-16] MEDS: Finasteride 5 MG TAB PO SCH (07:43)
[2020-09-16] MEDS: Polyethylene Glycol 3350 17 GM Packet PO SCH (07:43)
[2020-09-16] MEDS: Aspirin Chewable 81 MG TAB PO SCH (07:44)
[2020-09-16 12:29] VITALS: BP 131/73; TEMP 97.7
[2020-09-16] MEDS: Warfarin Sodium 2 MG TAB PO SCH (14:33)
== END 2020-09-16 14:49 | DRG 291 ==
LOC: ERS 14:51 → 2NO 18:20 → OBSVTOIN 09-12 20:11
PROVIDERS: ADMIT Student in an Organized Health Care Education/Training Program; ATTEND Internal Medicine
DX: I13.0 Hypertensive heart and chronic kidney disease with heart failure and stage 1 through stage 4 chronic kidney disease, or unspecified chronic kidney disease (principal); I50.33 Acute on chronic diastolic (congestive) heart failure; I48.92 Unspecified atrial flutter; E44.0 Moderate protein-calorie malnutrition; N17.9 Acute kidney failure, unspecified; E87.1 Hypo-osmolality and hyponatremia; Z20.822 Contact with and (suspected) exposure to COVID-19; I48.91 Unspecified atrial fibrillation; E78.00 Pure hypercholesterolemia, unspecified; E78.5 Hyperlipidemia, unspecified; F03.90 Unspecified dementia, unspecified severity, without behavioral disturbance, psychotic disturbance, mood disturbance, and anxiety; D63.1 Anemia in chronic kidney disease; N40.0 Benign prostatic hyperplasia without lower urinary tract symptoms; N18.9 Chronic kidney disease, unspecified; Z90.49 Acquired absence of other specified parts of digestive tract; Z95.5 Presence of coronary angioplasty implant and graft; Z98.890 Other specified postprocedural states; Z79.82 Long term (current) use of aspirin; Z79.899 Other long term (current) drug therapy; Z79.01 Long term (current) use of anticoagulants; Z68.31 Body mass index [BMI] 31.0-31.9, adult
CPT/HCPCS: 36415; 36416; 71045; 80048; 80053; 81001; 81003; 81015; 82550; 83605; 83735; 83880; 84484; 85025; 85610; 87040; 87086; 87635; 93005; 93010; 93306; 96374; 96375; 96376; G0378; J0692; J1160; J1940; J3370; J3475; J3480; J3490; U0003; U0005

== ENCOUNTER 2021-01-19 03:55 | Inpatient (IN) | payer MEDICARE, BC ==
[2021-01-19 06:15] LABS: Bacteria/HPF 4+ HPF (None Seen); Bilirubin Negative (Negative); Blood, Urine 2+ (Negative); Clarity Extra Turbid (Clear); Glucose, Urine (Dipstick) Normal (Negative); Ketone, Urine Negative (Negative); Leukocyte 500 Leu/uL (Negative); Nitrite 2+ (Negative); Protein, Urine (Dipstick) 30 mg/dL (Neg-Trace); RBC/HPF 0-3 HPF (0-3); Specific Gravity, Urine 1.017 (1.002-1.036); Squamous Epithelial None Seen HPF (0-3); Urobilinogen Normal mg/dL (Less than 2); WBC/HPF Greater than 50 HPF (0-3)
[2021-01-19 06:30] LABS: #Eosinphils 0.1 thou/uL (0.0-0.7); #Lymphocytes 1.6 thou/uL (1.20-3.40); #Monocytes 0.4 thou/uL (0.11-0.59); #Neutrophils 6.4 thou/uL (1.40-6.50); %Basophils 0.3 % (0.0-1.0); %Eosinophils 0.9 % (0.0-10.0); %Lymphocytes 18.9 % (21.0-51.0); %Monocytes 5.2 % (0.0-10.0); %Neutrophils 74.7 % (42.0-75.0); Hemoglobin 13.8 g/dL (14.0-18.0); Mean Corpuscular HGB CONC 33.1 g/dL (32.0-36.0); Mean Corpuscular Hemoglobin 29.4 pg (27.0-31.0); Mean Corpuscular Volume 88.9 fL (78.0-98.0); Mean Platelet Volume 10.1 fL (7.4-10.4); Platelet Count 235 thou/uL (130-400); RBC Distribution Width 14.5 % (11.5-14.5); White Blood Cell (WBC) Count 8.5 thou/uL (4.8-10.8)
[2021-01-19 06:50] LABS: ALT (SGPT) 10 U/L (8-55); AST (SGOT) 16 U/L (5-34); Albumin 3.4 g/dL (3.4-4.8); Alkaline Phosphatase 108 U/L (40-110); Anion Gap 14 mmol/L (10-20); BUN (Urea Nitrogen) 15 mg/dL (8.4-25.7); Bilirubin, Total 0.5 mg/dL (0.2-1.2); CK (CPK) 32 U/L (30-200); Calc. Creatinine Clearance 0 mL/min (70-130); Calcium 9.9 mg/dL (7.8-10.44); Carbon Dioxide 20 mmol/L (23-31); Chloride 109 mmol/L (98-107); Globulin 4.3 g/dL (2.4-3.5); Glucose 141 mg/dL (83-110); Magnesium 1.8 mg/dL (1.6-2.6); Protein, Total 7.7 g/dL (5.8-8.1); Sodium 139 mmol/L (136-145)
[2021-01-19 08:15] LABS: INR-International Normal Ratio 2.2; PTT 30.2 sec (22.9-36.1); Prothrombin Time 24.1 sec (12.0-14.7)
[2021-01-19] MEDS ORDERED: cefTRIAXone\\ROCEPHIN 2 GM VIAL ONE (08:16)
[2021-01-19] MEDS ORDERED: Acetaminophen 650 MG Suppository PR PRN (12:04)
[2021-01-19] MEDS ORDERED: Ondansetron PF 4 MG/2 ML Vial IVP PRN (12:04)
[2021-01-19] MEDS ORDERED: Ondansetron ODT 4 MG TAB PO PRN (12:04)
[2021-01-19] MEDS: Sodium Chloride 0.9% 1,000 ML IV SCH (13:30)
[2021-01-19 13:44] LABS: SARS-CoV-2 NAA Rapid Test Not Detected (NotDetected)
[2021-01-19] MEDS: Benzonatate 100 MG CAP PO SCH ×2 (15:23→20:52)
[2021-01-19] MEDS ORDERED: Warfarin Sodium 2 MG TAB PO SCH (17:00)
[2021-01-19 18:12] VITALS: BMI 26.8
[2021-01-20] MEDS: Sodium Chloride 0.9% 1,000 ML IV SCH ×2 (02:15→08:33)
[2021-01-20 05:19] LABS: #Eosinphils 0.1 thou/uL (0.0-0.7); #Lymphocytes 1.2 thou/uL (1.20-3.40); #Monocytes 0.5 thou/uL (0.11-0.59); #Neutrophils 6.3 thou/uL (1.40-6.50); %Basophils 0.2 % (0.0-1.0); %Eosinophils 0.7 % (0.0-10.0); %Lymphocytes 14.8 % (21.0-51.0); %Monocytes 6.4 % (0.0-10.0); %Neutrophils 77.9 % (42.0-75.0); Mean Corpuscular HGB CONC 33.5 g/dL (32.0-36.0); Mean Corpuscular Volume 89.5 fL (78.0-98.0); Platelet Count 256 thou/uL (130-400); RBC Distribution Width 14.5 % (11.5-14.5); Red Blood Cell (RBC) Count 5.01 mill/uL (4.70-6.10); White Blood Cell (WBC) Count 8.1 thou/uL (4.8-10.8)
[2021-01-20 05:29] LABS: INR-International Normal Ratio 3.1; Prothrombin Time 31.9 sec (12.0-14.7)
[2021-01-20 05:43] LABS: Anion Gap 15 mmol/L (10-20); BUN (Urea Nitrogen) 12 mg/dL (8.4-25.7); Calc. Creatinine Clearance 91 mL/min (70-130); Calcium 10.1 mg/dL (7.8-10.44); Carbon Dioxide 19 mmol/L (23-31); Chloride 110 mmol/L (98-107); Glucose 118 mg/dL (83-110); Potassium 3.6 mmol/L (3.5-5.1); Sodium 140 mmol/L (136-145)
[2021-01-20] MEDS: Aspirin Chewable 81 MG TAB PO SCH (08:34)
[2021-01-20] MEDS: cefTRIAXone\\ROCEPHIN 1 GM in Sodium Chloride 0.9% 100 ML IVPB SCH (08:34)
[2021-01-20] MEDS: Benzonatate 100 MG CAP PO SCH ×3 (08:34→20:29)
[2021-01-20] MEDS: Acetaminophen 325 MG TAB PO PRN (08:36)
[2021-01-20] MEDS ORDERED: Lisinopril 20 MG TAB PO SCH (09:00)
[2021-01-20] MEDS ORDERED: Amlodipine 5 MG TAB PO SCH (09:00)
[2021-01-20] MEDS ORDERED: Warfarin Sodium 2 MG TAB PO SCH (13:30)
[2021-01-21 06:12] LABS: INR-International Normal Ratio 3.2; Prothrombin Time 32.8 sec (12.0-14.7)
[2021-01-21] MEDS ORDERED: Lisinopril 20 MG TAB PO SCH (08:53)
[2021-01-21] MEDS: Aspirin Chewable 81 MG TAB PO SCH (09:19)
[2021-01-21] MEDS: Lisinopril 20 MG TAB PO SCH (09:19)
[2021-01-21] MEDS: Benzonatate 100 MG CAP PO SCH ×3 (13:29→20:30)
[2021-01-21] MEDS ORDERED: Warfarin Sodium 2 MG TAB PO SCH ×2 (15:00→17:00)
[2021-01-21] MEDS: Acetaminophen 325 MG TAB PO PRN (16:29)
[2021-01-21] MEDS: cefTRIAXone\\ROCEPHIN 1 GM in Sodium Chloride 0.9% 100 ML IVPB SCH (16:49)
[2021-01-21] MEDS ORDERED: Fentanyl 100 MCG/2 ML VIAL ONE (20:11)
[2021-01-21] MEDS: Cefdinir 300 MG CAP PO SCH (20:29)
[2021-01-22 04:51] LABS: INR-International Normal Ratio 2.8; Prothrombin Time 29.4 sec (12.0-14.7)
[2021-01-22] MEDS: Aspirin Chewable 81 MG TAB PO SCH (09:42)
[2021-01-22] MEDS: Lisinopril 20 MG TAB PO SCH (09:42)
[2021-01-22] MEDS: Benzonatate 100 MG CAP PO SCH ×2 (09:43→15:47)
[2021-01-22] MEDS: Cefdinir 300 MG CAP PO SCH (09:43)
[2021-01-22] MEDS ORDERED: cefTRIAXone\\ROCEPHIN 1 GM in Sodium Chloride 0.9% 100 ML IVPB SCH (10:00)
[2021-01-22] MEDS ORDERED: Warfarin Sodium 2 MG TAB PO SCH ×2 (12:58→17:00)
[2021-01-22 16:22] VITALS: BP 142/90; TEMP 98
== END 2021-01-22 17:00 | DRG 690 ==
LOC: ERS 03:55 → ERHOLD 08:03 → 2NO 18:04 → OBSVTOIN 01-21 15:45
PROVIDERS: ADMIT Family Medicine; ATTEND Internal Medicine
DX: N39.0 Urinary tract infection, site not specified (principal); I50.32 Chronic diastolic (congestive) heart failure; Z20.822 Contact with and (suspected) exposure to COVID-19; B96.20 Unspecified Escherichia coli [E. coli] as the cause of diseases classified elsewhere; I25.10 Atherosclerotic heart disease of native coronary artery without angina pectoris; I48.91 Unspecified atrial fibrillation; I11.0 Hypertensive heart disease with heart failure; E78.5 Hyperlipidemia, unspecified; Z95.5 Presence of coronary angioplasty implant and graft; Z79.899 Other long term (current) drug therapy; Z79.82 Long term (current) use of aspirin; Z79.01 Long term (current) use of anticoagulants; Z90.49 Acquired absence of other specified parts of digestive tract
CPT/HCPCS: 36415; 51701; 71045; 80048; 80053; 81003; 81015; 82550; 83735; 83880; 84484; 85025; 85610; 85730; 87040; 87077; 87086; 87186; 93005; 96365; 96376; G0378; J0696; J3010; J3490; J7050; U0002

== ENCOUNTER 2021-03-18 22:08 | Inpatient (IN) | payer MEDICARE, BC ==
[~2021-03-18 22:08] MED LIST: Iopamidol-370 76% 500 ML 1 ML ONE
[2021-03-18 22:47] LABS: #Eosinphils 0.1 thou/uL (0.0-0.7); #Lymphocytes 1.2 thou/uL (1.20-3.40); #Monocytes 0.3 thou/uL (0.11-0.59); #Neutrophils 4.3 thou/uL (1.40-6.50); %Basophils 0.2 % (0.0-1.0); %Eosinophils 1.3 % (0.0-10.0); %Monocytes 4.6 % (0.0-10.0); %Neutrophils 73.9 % (42.0-75.0); Hemoglobin 13.9 g/dL (14.0-18.0); Mean Corpuscular HGB CONC 32.8 g/dL (32.0-36.0); Mean Corpuscular Hemoglobin 29.2 pg (27.0-31.0); Mean Corpuscular Volume 89.1 fL (78.0-98.0); Mean Platelet Volume 9.9 fL (7.4-10.4); Platelet Count 266 thou/uL (130-400); RBC Distribution Width 15.3 % (11.5-14.5); Red Blood Cell (RBC) Count 4.76 mill/uL (4.70-6.10); White Blood Cell (WBC) Count 5.8 thou/uL (4.8-10.8)
[2021-03-18 23:14] LABS: INR-International Normal Ratio 1.5; Prothrombin Time 17.8 sec (12.0-14.7)
[2021-03-18 23:15] LABS: PTT 36.7 sec (22.9-36.1)
[2021-03-18 23:30] LABS: ALT (SGPT) 11 U/L (8-55); AST (SGOT) 15 U/L (5-34); Albumin 3.6 g/dL (3.4-4.8); Alkaline Phosphatase 111 U/L (40-110); Anion Gap 14 mmol/L (10-20); BUN (Urea Nitrogen) 20 mg/dL (8.4-25.7); Bilirubin, Total 0.7 mg/dL (0.2-1.2); Calc. Creatinine Clearance 0 mL/min (70-130); Calcium 9.9 mg/dL (7.8-10.44); Carbon Dioxide 23 mmol/L (23-31); Chloride 107 mmol/L (98-107); Globulin 3.9 g/dL (2.4-3.5); Glucose 133 mg/dL (83-110); Lipase 6 U/L (8-78); Potassium 4.4 mmol/L (3.5-5.1); Protein, Total 7.5 g/dL (5.8-8.1); Sodium 140 mmol/L (136-145)
[2021-03-18 23:59] LABS: CKMB 0.8 ng/mL (0-6.6)
[2021-03-19] MEDS ORDERED: Aspirin Chewable 81 MG TAB ONE (00:09)
[2021-03-19 00:15] LABS: Bacteria/HPF 4+ HPF (None Seen); Bilirubin Negative (Negative); Blood, Urine Negative (Negative); Clarity Turbid (Clear); Glucose, Urine (Dipstick) Normal (Negative); Ketone, Urine Negative (Negative); Leukocyte 500 Leu/uL (Negative); Nitrite 2+ (Negative); Protein, Urine (Dipstick) 20 mg/dL (Neg-Trace); RBC/HPF 0-3 HPF (0-3); Specific Gravity, Urine 1.022 (1.002-1.036); Squamous Epithelial 0-3 HPF (0-3); Urobilinogen Normal mg/dL (Less than 2); WBC/HPF Greater than 50 HPF (0-3)
[2021-03-19] MEDS ORDERED: cefTRIAXone\\ROCEPHIN 1 GM VIAL ONE (00:49)
[2021-03-19] MEDS ORDERED: Ondansetron PF 4 MG/2 ML Vial IVP PRN (01:10)
[2021-03-19] MEDS ORDERED: Acetaminophen 325 MG TAB PO PRN (01:10)
[2021-03-19 02:32] LABS: Troponin I 0.044 ng/mL (< 0.028)
[2021-03-19 03:33] VITALS: BMI 32.5
[2021-03-19] MEDS: Aspirin Chewable 81 MG TAB PO SCH (08:55)
[2021-03-19] MEDS: Polyethylene Glycol 3350 17 GM Packet PO SCH (08:55)
[2021-03-19] MEDS: Finasteride 5 MG TAB PO SCH (08:55)
[2021-03-19] MEDS: Amlodipine 5 MG TAB PO SCH ×2 (08:55→20:39)
[2021-03-19] MEDS: Docusate 100 MG CAP PO SCH ×2 (08:55→20:39)
[2021-03-19 13:58] LABS: #Eosinphils 0.3 thou/uL (0.0-0.7); #Lymphocytes 1.5 thou/uL (1.20-3.40); #Monocytes 0.4 thou/uL (0.11-0.59); #Neutrophils 4.6 thou/uL (1.40-6.50); %Basophils 0.2 % (0.0-1.0); %Eosinophils 4.1 % (0.0-10.0); %Monocytes 5.9 % (0.0-10.0); %Neutrophils 67.9 % (42.0-75.0); Hemoglobin 12.7 g/dL (14.0-18.0); Mean Corpuscular HGB CONC 31.6 g/dL (32.0-36.0); Mean Corpuscular Hemoglobin 28.5 pg (27.0-31.0); Mean Corpuscular Volume 89.9 fL (78.0-98.0); Mean Platelet Volume 9.8 fL (7.4-10.4); Platelet Count 240 thou/uL (130-400); RBC Distribution Width 15.3 % (11.5-14.5); Red Blood Cell (RBC) Count 4.45 mill/uL (4.70-6.10); White Blood Cell (WBC) Count 6.8 thou/uL (4.8-10.8)
[2021-03-19 14:09] LABS: INR-International Normal Ratio 1.5; Prothrombin Time 18.5 sec (12.0-14.7)
[2021-03-19 14:13] LABS: Anion Gap 15 mmol/L (10-20); BUN (Urea Nitrogen) 19 mg/dL (8.4-25.7); Calc. Creatinine Clearance 79 mL/min (70-130); Calcium 9.3 mg/dL (7.8-10.44); Carbon Dioxide 22 mmol/L (23-31); Chloride 107 mmol/L (98-107); Glucose 169 mg/dL (83-110); Magnesium 1.9 mg/dL (1.6-2.6); Potassium 3.6 mmol/L (3.5-5.1); Sodium 140 mmol/L (136-145)
[2021-03-19 14:17] LABS: Troponin I 0.051 ng/mL (< 0.028)
[2021-03-19 15:23] LABS: SARS-CoV-2 PCR by NAA Not Detected (NotDetected)
[2021-03-19] MEDS ORDERED: Warfarin Sodium 2 MG TAB PO SCH (17:00)
[2021-03-19] MEDS: Atorvastatin Calcium 10 MG TAB PO SCH (20:39)
[2021-03-20] MEDS: cefTRIAXone\\ROCEPHIN 1 GM in Sodium Chloride 0.9% 100 ML IVPB SCH (00:43)
[2021-03-20] MEDS: Docusate 100 MG CAP PO SCH ×2 (07:59→21:08)
[2021-03-20] MEDS: Finasteride 5 MG TAB PO SCH (07:59)
[2021-03-20] MEDS: Amlodipine 5 MG TAB PO SCH ×2 (07:59→21:07)
[2021-03-20] MEDS: Aspirin Chewable 81 MG TAB PO SCH (07:59)
[2021-03-20] MEDS: Polyethylene Glycol 3350 17 GM Packet PO SCH (07:59)
[2021-03-20 16:41] LABS: #Eosinphils 0.5 thou/uL (0.0-0.7); #Lymphocytes 1.4 thou/uL (1.20-3.40); #Monocytes 0.5 thou/uL (0.11-0.59); #Neutrophils 4.1 thou/uL (1.40-6.50); %Basophils 0.4 % (0.0-1.0); %Eosinophils 7.3 % (0.0-10.0); %Lymphocytes 21.1 % (21.0-51.0); %Monocytes 7.2 % (0.0-10.0); Hemoglobin 12.3 g/dL (14.0-18.0); Mean Corpuscular HGB CONC 32.8 g/dL (32.0-36.0); Mean Corpuscular Hemoglobin 29.4 pg (27.0-31.0); Mean Corpuscular Volume 89.5 fL (78.0-98.0); Mean Platelet Volume 9.8 fL (7.4-10.4); Platelet Count 217 thou/uL (130-400); RBC Distribution Width 15.3 % (11.5-14.5); Red Blood Cell (RBC) Count 4.18 mill/uL (4.70-6.10); White Blood Cell (WBC) Count 6.4 thou/uL (4.8-10.8)
[2021-03-20 16:49] LABS: INR-International Normal Ratio 1.6; Prothrombin Time 19.1 sec (12.0-14.7)
[2021-03-20 16:52] LABS: Anion Gap 13 mmol/L (10-20); BUN (Urea Nitrogen) 17 mg/dL (8.4-25.7); Calc. Creatinine Clearance 88 mL/min (70-130); Calcium 9.2 mg/dL (7.8-10.44); Carbon Dioxide 22 mmol/L (23-31); Chloride 108 mmol/L (98-107); Glucose 119 mg/dL (83-110); Magnesium 1.9 mg/dL (1.6-2.6); Potassium 3.5 mmol/L (3.5-5.1); Sodium 139 mmol/L (136-145)
[2021-03-20] MEDS ORDERED: Warfarin Sodium 3 MG TAB PO SCH (17:00)
[2021-03-20] MEDS ORDERED: Warfarin Sodium 2 MG TAB PO SCH (17:00)
[2021-03-20] MEDS: Atorvastatin Calcium 10 MG TAB PO SCH (21:08)
[2021-03-21] MEDS: cefTRIAXone\\ROCEPHIN 1 GM in Sodium Chloride 0.9% 100 ML IVPB SCH (00:36)
[2021-03-21] MEDS: Polyethylene Glycol 3350 17 GM Packet PO SCH (09:29)
[2021-03-21] MEDS: Finasteride 5 MG TAB PO SCH (09:29)
[2021-03-21] MEDS: Aspirin Chewable 81 MG TAB PO SCH (09:29)
[2021-03-21] MEDS: Docusate 100 MG CAP PO SCH (09:29)
[2021-03-21] MEDS: Amlodipine 5 MG TAB PO SCH (09:29)
[2021-03-21] MEDS ORDERED: Bisacodyl 10 MG SUPP PR SCH (11:30)
[2021-03-21 14:07] VITALS: BP 148/74; TEMP 98.4
== END 2021-03-21 15:10 | disposition home or self-care (01) | DRG 690 ==
LOC: ERS 22:08 → 2NO 03-19 00:56 → OBSVTOIN 03-21 11:11
PROVIDERS: ADMIT Internal Medicine; ATTEND Internal Medicine
DX: N39.0 Urinary tract infection, site not specified (principal); I50.32 Chronic diastolic (congestive) heart failure; I24.8 Other forms of acute ischemic heart disease; G93.40 Encephalopathy, unspecified; E78.5 Hyperlipidemia, unspecified; I48.91 Unspecified atrial fibrillation; I25.10 Atherosclerotic heart disease of native coronary artery without angina pectoris; I11.0 Hypertensive heart disease with heart failure; K59.00 Constipation, unspecified; N40.0 Benign prostatic hyperplasia without lower urinary tract symptoms; Z20.822 Contact with and (suspected) exposure to COVID-19; Z79.82 Long term (current) use of aspirin; Z79.899 Other long term (current) drug therapy; Z79.01 Long term (current) use of anticoagulants; Z90.49 Acquired absence of other specified parts of digestive tract; Z95.5 Presence of coronary angioplasty implant and graft
CPT/HCPCS: 36415; 70450; 71045; 71260; 74177; 80048; 80053; 81003; 81015; 82553; 83605; 83690; 83735; 84443; 84484; 85025; 85610; 85730; 87077; 87086; 87186; 93005; 96365; 96375; 96376; G0378; J0696; J3490; Q9967; U0003; U0005

== ENCOUNTER 2021-04-21 16:39 | Inpatient (IN) | payer MEDICARE, BC ==
[~2021-04-21 16:39] MED LIST changes: +Heparin 1,000 UNITS/ML VIAL ONE; -Iopamidol-370 76% 500 ML 1 ML ONE
[2021-04-21 16:52] LABS: #Eosinphils 0.1 thou/uL (0.0-0.7); #Lymphocytes 1.3 thou/uL (1.20-3.40); #Monocytes 0.4 thou/uL (0.11-0.59); #Neutrophils 5.9 thou/uL (1.40-6.50); %Eosinophils 0.9 % (0.0-10.0); %Lymphocytes 17.2 % (21.0-51.0); %Monocytes 5.5 % (0.0-10.0); %Neutrophils 76.4 % (42.0-75.0); Hemoglobin 13.5 g/dL (14.0-18.0); Mean Corpuscular HGB CONC 32.4 g/dL (32.0-36.0); Mean Corpuscular Hemoglobin 29.3 pg (27.0-31.0); Mean Corpuscular Volume 90.6 fL (78.0-98.0); Mean Platelet Volume 8.7 fL (7.4-10.4); Platelet Count 280 thou/uL (130-400); RBC Distribution Width 15.1 % (11.5-14.5); Red Blood Cell (RBC) Count 4.59 mill/uL (4.70-6.10); White Blood Cell (WBC) Count 7.7 thou/uL (4.8-10.8)
[2021-04-21] MEDS ORDERED: Ondansetron PF 4 MG/2 ML Vial ONE (16:52)
[2021-04-21 17:03] LABS: INR-International Normal Ratio 1.2; Prothrombin Time 15.6 sec (12.0-14.7)
[2021-04-21 17:04] LABS: PTT 33.8 sec (22.9-36.1)
[2021-04-21 17:21] LABS: ALT (SGPT) 10 U/L (8-55); AST (SGOT) 12 U/L (5-34); Albumin 3.6 g/dL (3.4-4.8); Alkaline Phosphatase 110 U/L (40-110); Anion Gap 13 mmol/L (10-20); BUN (Urea Nitrogen) 16 mg/dL (8.4-25.7); Bilirubin, Total 0.5 mg/dL (0.2-1.2); CK (CPK) 21 U/L (30-200); Calc. Creatinine Clearance 0 mL/min (70-130); Calcium 10.1 mg/dL (7.8-10.44); Carbon Dioxide 27 mmol/L (23-31); Chloride 105 mmol/L (98-107); Globulin 3.8 g/dL (2.4-3.5); Glucose 126 mg/dL (83-110); Potassium 4.1 mmol/L (3.5-5.1); Protein, Total 7.4 g/dL (5.8-8.1); Sodium 141 mmol/L (136-145)
[2021-04-21 17:40] LABS: CKMB 0.5 ng/mL (0-6.6)
[2021-04-21] MEDS ORDERED: Aspirin Chewable 81 MG TAB ONE (20:24)
[2021-04-21] MEDS ORDERED: Ondansetron PF 4 MG/2 ML Vial IVP PRN (20:45)
[2021-04-21] MEDS ORDERED: hydrALAZINE 20 MG/ML VIAL SLOW IVP PRN (20:45)
[2021-04-21] MEDS ORDERED: Ondansetron ODT 4 MG TAB PO PRN (20:45)
[2021-04-21 21:34] LABS: Troponin I 0.041 ng/mL (< 0.028)
[2021-04-21 23:38] LABS: Troponin I 0.046 ng/mL (< 0.028)
[2021-04-22] MEDS ORDERED: VANCOMYCIN 1.25 GM/250 ML BAG 1.25 GM in Premix Bag 1 BAG IVPB SCH (00:15)
[2021-04-22] MEDS: Cefepime 2 GM in Sodium Chloride 0.9% 100 ML IVPB SCH ×2 (00:55→15:09)
[2021-04-22 01:37] LABS: Bacteria/HPF None Seen HPF (None Seen); Bilirubin Negative (Negative); Blood, Urine 1+ (Negative); Clarity Clear (Clear); Glucose, Urine (Dipstick) Normal (Negative); Ketone, Urine Negative (Negative); Leukocyte 500 Leu/uL (Negative); Nitrite Negative (Negative); Protein, Urine (Dipstick) 20 mg/dL (Neg-Trace); Squamous Epithelial 0-3 HPF (0-3); Urobilinogen Normal mg/dL (Less than 2); WBC/HPF Greater than 50 HPF (0-3); pH, Urine 5.5 (5.0-9.0)
[2021-04-22 01:45] LABS: Specific Gravity, Urine 1.058 (1.002-1.036)
[2021-04-22 01:53] LABS: Urine Culture Reflex Yes Yes
[2021-04-22 05:44] LABS: BUN (Urea Nitrogen) 17 mg/dL (8.4-25.7); Calc. Creatinine Clearance 75 mL/min (70-130); Calcium 9.5 mg/dL (7.8-10.44); Carbon Dioxide 22 mmol/L (23-31); Cardiac Risk 4.6 (Less than 4.5); Chloride 109 mmol/L (98-107); Cholesterol 148 mg/dl (< 200 Desired); Glucose 104 mg/dL (83-110); HDL Cholesterol 32 mg/dL (>60 Neg Risk); LDL Cholesterol, Calculated 99 mg/dL; Sodium 140 mmol/L (136-145); Triglycerides 85 mg/dL (Less than 150)
[2021-04-22 05:48] LABS: Anion Gap 13 mmol/L (10-20)
[2021-04-22 06:31] LABS: Hemoglobin 12.4 g/dL (14.0-18.0); Mean Corpuscular HGB CONC 31.7 g/dL (32.0-36.0); Mean Corpuscular Hemoglobin 28.9 pg (27.0-31.0); Mean Corpuscular Volume 91.1 fL (78.0-98.0); Mean Platelet Volume 8.7 fL (7.4-10.4); Platelet Count 250 thou/uL (130-400); RBC Distribution Width 15.1 % (11.5-14.5); Red Blood Cell (RBC) Count 4.28 mill/uL (4.70-6.10); White Blood Cell (WBC) Count 8.6 thou/uL (4.8-10.8)
[2021-04-22 07:49] LABS: Band 2 % (5-11); Eosinophils 5 % (0-10); Lymphocytes 22 % (21-51); MDiff Complete? YES; Monocytes 4 % (0-10); Neutrophil 65 % (42-75); Ovalocytes MODERATE= 6-15 cells (100X) (0-1/hpf); Polychromasia SLIGHT = 2-3 cells (100X) (0-2/hpf); Reactive Lymphocytes 1 % (0-10)
[2021-04-22] MEDS ORDERED: Magnevist 469MG/ML 20 ML VIAL ONE (10:16)
[2021-04-22 11:13] LABS: SARS-CoV-2 PCR by NAA Not Detected (NotDetected)
[2021-04-22] MEDS: Vancomycin 1 GM in Premix Bag 1 BAG IVPB SCH (12:06)
[2021-04-22 14:41] VITALS: BMI 28.1
[2021-04-22] MEDS: Atorvastatin Calcium 10 MG TAB PO SCH (20:37)
[2021-04-23] MEDS: Cefepime 2 GM in Sodium Chloride 0.9% 100 ML IVPB SCH ×3 (00:35→23:31)
[2021-04-23] MEDS: Vancomycin 1 GM in Premix Bag 1 BAG IVPB SCH ×2 (01:32→14:21)
[2021-04-23] MEDS: Aspirin Chewable 81 MG TAB PO SCH (13:09)
[2021-04-23] MEDS: Acetaminophen 325 MG TAB PO PRN (21:35)
[2021-04-23] MEDS: Atorvastatin Calcium 10 MG TAB PO SCH (21:36)
[2021-04-23] MEDS: Melatonin 3 MG TAB PO PRN (21:36)
[2021-04-23] MEDS ORDERED: Metoprolol Tartrate 50 MG TAB PO SCH (22:03)
[2021-04-23] MEDS ORDERED: Metoprolol Tartrate 5 MG/5 ML VIAL IVP SCH (22:04)
[2021-04-24 01:15] LABS: Vancomycin, Trough 14.6 ug/mL
[2021-04-24] MEDS: Vancomycin 1 GM in Premix Bag 1 BAG IVPB SCH ×3 (01:48→23:59)
[2021-04-24] MEDS ORDERED: Metoprolol Tartrate 5 MG/5 ML VIAL IVP SCH (02:45)
[2021-04-24 04:47] LABS: #Eosinphils 0.1 thou/uL (0.0-0.7); #Lymphocytes 1.1 thou/uL (1.20-3.40); #Monocytes 0.4 thou/uL (0.11-0.59); #Neutrophils 6.3 thou/uL (1.40-6.50); %Basophils 0.2 % (0.0-1.0); %Eosinophils 0.7 % (0.0-10.0); %Lymphocytes 13.4 % (21.0-51.0); %Monocytes 5.5 % (0.0-10.0); %Neutrophils 80.1 % (42.0-75.0); Hemoglobin 11.8 g/dL (14.0-18.0); Mean Corpuscular HGB CONC 31.4 g/dL (32.0-36.0); Mean Corpuscular Hemoglobin 28.3 pg (27.0-31.0); Mean Corpuscular Volume 90.1 fL (78.0-98.0); Mean Platelet Volume 8.6 fL (7.4-10.4); Platelet Count 277 thou/uL (130-400); RBC Distribution Width 14.9 % (11.5-14.5); Red Blood Cell (RBC) Count 4.18 mill/uL (4.70-6.10); White Blood Cell (WBC) Count 7.9 thou/uL (4.8-10.8)
[2021-04-24] MEDS: Diltiazem 125 MG in Sodium Chloride 0.9% 100 ML IVPB SCH (04:50)
[2021-04-24 05:08] LABS: Anion Gap 16 mmol/L (10-20); BUN (Urea Nitrogen) 14 mg/dL (8.4-25.7); CRP (Inflammatory) 3.93 mg/dL (= or < 0.5); Calc. Creatinine Clearance 88 mL/min (70-130); Calcium 9.7 mg/dL (7.8-10.44); Carbon Dioxide 20 mmol/L (23-31); Chloride 106 mmol/L (98-107); Glucose 185 mg/dL (83-110); Magnesium 1.7 mg/dL (1.6-2.6); Potassium 3.5 mmol/L (3.5-5.1); Sodium 138 mmol/L (136-145)
[2021-04-24 05:12] LABS: Troponin I 0.051 ng/mL (< 0.028)
[2021-04-24 05:32] LABS: ALT (SGPT) 9 U/L (8-55); AST (SGOT) 11 U/L (5-34); Albumin 3.5 g/dL (3.4-4.8); Alkaline Phosphatase 99 U/L (40-110); Anion Gap 15 mmol/L (10-20); BUN (Urea Nitrogen) 14 mg/dL (8.4-25.7); Bilirubin, Total 0.6 mg/dL (0.2-1.2); Calc. Creatinine Clearance 87 mL/min (70-130); Calcium 9.7 mg/dL (7.8-10.44); Carbon Dioxide 21 mmol/L (23-31); Chloride 107 mmol/L (98-107); Globulin 3.5 g/dL (2.4-3.5); Glucose 191 mg/dL (83-110); Magnesium 1.8 mg/dL (1.6-2.6); Phosphorus 2.4 mg/dL (2.3-4.7); Potassium 3.7 mmol/L (3.5-5.1); Sodium 139 mmol/L (136-145)
[2021-04-24] MEDS ORDERED: Magnesium 2 GM/50 ML 2 GM in Premix Bag 1 BAG IVPB SCH ×2 (06:15→08:00)
[2021-04-24] MEDS ORDERED: Potassium Phosphate 30 MMOL in Sodium Chloride 0.9% 250 ML 250 ML IVPB SCH (07:30)
[2021-04-24] MEDS: Aspirin Chewable 81 MG TAB PO SCH (09:32)
[2021-04-24] MEDS ORDERED: Digoxin 0.5 MG/2 ML AMP SLOW IVP SCH (12:45)
[2021-04-24] MEDS: Cefepime 2 GM in Sodium Chloride 0.9% 100 ML IVPB SCH ×2 (13:18→23:22)
[2021-04-24] MEDS: Atorvastatin Calcium 10 MG TAB PO SCH (20:14)
[2021-04-25] MEDS: Diltiazem 125 MG in Sodium Chloride 0.9% 100 ML IVPB SCH (00:29)
[2021-04-25] MEDS: Acetaminophen 650 MG Suppository PR PRN (04:29)
[2021-04-25 06:07] LABS: Anion Gap 16 mmol/L (10-20); BUN (Urea Nitrogen) 8 mg/dL (8.4-25.7); Calc. Creatinine Clearance 103 mL/min (70-130); Calcium 9.2 mg/dL (7.8-10.44); Carbon Dioxide 20 mmol/L (23-31); Chloride 107 mmol/L (98-107); Glucose 119 mg/dL (83-110); Magnesium 1.9 mg/dL (1.6-2.6); Phosphorus 2.4 mg/dL (2.3-4.7); Potassium 4.1 mmol/L (3.5-5.1); Sodium 139 mmol/L (136-145)
[2021-04-25] MEDS ORDERED: FLU VACC QS2021-22(65YR UP)/PF 240 MCG/0.7 ML SYRINGE IM ONE (09:00)
[2021-04-25 11:15] LABS: Syphilis Antibody Nonreactive (Nonreactive); Syphilis Antibody Index 0.57 S/CO (<1.00 Non-Reactive)
[2021-04-25] MEDS: Folic Acid 1 MG TAB PO SCH (14:14)
[2021-04-25] MEDS: Aspirin Chewable 81 MG TAB PO SCH (14:14)
[2021-04-25] MEDS: Cefepime 2 GM in Sodium Chloride 0.9% 100 ML IVPB SCH ×2 (18:16→19:29)
[2021-04-25 18:26] LABS: #Eosinphils 0.1 thou/uL (0.0-0.7); #Lymphocytes 1.2 thou/uL (1.20-3.40); #Monocytes 0.6 thou/uL (0.11-0.59); #Neutrophils 6.5 thou/uL (1.40-6.50); %Basophils 0.5 % (0.0-1.0); %Eosinophils 1.4 % (0.0-10.0); %Lymphocytes 13.9 % (21.0-51.0); %Monocytes 6.8 % (0.0-10.0); %Neutrophils 77.4 % (42.0-75.0); Hemoglobin 12.1 g/dL (14.0-18.0); Mean Corpuscular HGB CONC 31.4 g/dL (32.0-36.0); Mean Corpuscular Hemoglobin 28.4 pg (27.0-31.0); Mean Corpuscular Volume 90.4 fL (78.0-98.0); Mean Platelet Volume 8.9 fL (7.4-10.4); Platelet Count 250 thou/uL (130-400); RBC Distribution Width 15.1 % (11.5-14.5); Red Blood Cell (RBC) Count 4.25 mill/uL (4.70-6.10); White Blood Cell (WBC) Count 8.4 thou/uL (4.8-10.8)
[2021-04-25 19:10] LABS: HIV (1/2) Antibody/Antigen Non-Reactive (NonReactive)
[2021-04-25] MEDS: Metoprolol Tartrate 25 MG TAB PO SCH (21:32)
[2021-04-25] MEDS: Apixaban 5 MG TAB PO SCH (21:32)
[2021-04-25] MEDS: Atorvastatin Calcium 10 MG TAB PO SCH (21:32)
[2021-04-26 05:35] LABS: #Eosinphils 0.1 thou/uL (0.0-0.7); #Lymphocytes 1.4 thou/uL (1.20-3.40); #Monocytes 0.5 thou/uL (0.11-0.59); #Neutrophils 5.1 thou/uL (1.40-6.50); %Basophils 0.2 % (0.0-1.0); %Eosinophils 1.4 % (0.0-10.0); %Lymphocytes 19.5 % (21.0-51.0); %Monocytes 7.6 % (0.0-10.0); %Neutrophils 71.3 % (42.0-75.0); Hemoglobin 12.4 g/dL (14.0-18.0); Mean Corpuscular HGB CONC 31.5 g/dL (32.0-36.0); Mean Corpuscular Hemoglobin 28.8 pg (27.0-31.0); Mean Corpuscular Volume 91.6 fL (78.0-98.0); Mean Platelet Volume 9.1 fL (7.4-10.4); Platelet Count 247 thou/uL (130-400); RBC Distribution Width 15.1 % (11.5-14.5); Red Blood Cell (RBC) Count 4.31 mill/uL (4.70-6.10); White Blood Cell (WBC) Count 7.1 thou/uL (4.8-10.8)
[2021-04-26] MEDS: Diltiazem 125 MG in Sodium Chloride 0.9% 100 ML IVPB SCH (05:49)
[2021-04-26] MEDS: Cefepime 2 GM in Sodium Chloride 0.9% 100 ML IVPB SCH ×2 (05:49→18:10)
[2021-04-26 05:50] LABS: INR-International Normal Ratio 1.3; PTT 37.6 sec (22.9-36.1); Prothrombin Time 16.3 sec (12.0-14.7)
[2021-04-26 06:01] LABS: Anion Gap 14 mmol/L (10-20); BUN (Urea Nitrogen) 13 mg/dL (8.4-25.7); Calc. Creatinine Clearance 88 mL/min (70-130); Calcium 10.2 mg/dL (7.8-10.44); Carbon Dioxide 22 mmol/L (23-31); Chloride 108 mmol/L (98-107); Glucose 107 mg/dL (83-110); Magnesium 2.1 mg/dL (1.6-2.6); Phosphorus 2.7 mg/dL (2.3-4.7); Potassium 3.8 mmol/L (3.5-5.1); Sodium 140 mmol/L (136-145)
[2021-04-26] MEDS: Metoprolol Tartrate 25 MG TAB PO SCH (12:10)
[2021-04-26] MEDS: Aspirin Chewable 81 MG TAB PO SCH (12:10)
[2021-04-26] MEDS: Apixaban 5 MG TAB PO SCH ×2 (12:10→22:13)
[2021-04-26] MEDS: Folic Acid 1 MG TAB PO SCH (12:10)
[2021-04-26] MEDS ORDERED: Metoprolol Tartrate 25 MG TAB PO SCH (17:47)
[2021-04-26] MEDS ORDERED: Sodium Chloride 0.9% 1,000 ML IV SCH (18:30)
[2021-04-26] MEDS: Atorvastatin Calcium 10 MG TAB PO SCH (22:13)
[2021-04-27] MEDS: Cefepime 2 GM in Sodium Chloride 0.9% 100 ML IVPB SCH ×2 (05:27→19:57)
[2021-04-27 05:55] LABS: #Eosinphils 0.2 thou/uL (0.0-0.7); #Lymphocytes 1.1 thou/uL (1.20-3.40); #Monocytes 0.6 thou/uL (0.11-0.59); %Basophils 0.2 % (0.0-1.0); %Eosinophils 2.7 % (0.0-10.0); %Lymphocytes 16.4 % (21.0-51.0); %Monocytes 8.2 % (0.0-10.0); %Neutrophils 72.5 % (42.0-75.0); Hemoglobin 11.7 g/dL (14.0-18.0); Mean Corpuscular Volume 90.4 fL (78.0-98.0); Mean Platelet Volume 8.7 fL (7.4-10.4); Platelet Count 248 thou/uL (130-400); RBC Distribution Width 14.8 % (11.5-14.5); Red Blood Cell (RBC) Count 4.05 mill/uL (4.70-6.10); White Blood Cell (WBC) Count 6.8 thou/uL (4.8-10.8)
[2021-04-27 06:03] LABS: INR-International Normal Ratio 1.6; Prothrombin Time 19.4 sec (12.0-14.7)
[2021-04-27 06:04] LABS: PTT 47.7 sec (22.9-36.1)
[2021-04-27 06:14] LABS: Anion Gap 14 mmol/L (10-20); BUN (Urea Nitrogen) 19 mg/dL (8.4-25.7); Calc. Creatinine Clearance 91 mL/min (70-130); Calcium 9.8 mg/dL (7.8-10.44); Carbon Dioxide 22 mmol/L (23-31); Chloride 111 mmol/L (98-107); Glucose 106 mg/dL (83-110); Phosphorus 2.6 mg/dL (2.3-4.7); Potassium 3.8 mmol/L (3.5-5.1); Sodium 143 mmol/L (136-145)
[2021-04-27] MEDS: Diltiazem 125 MG in Sodium Chloride 0.9% 100 ML IVPB SCH (08:10)
[2021-04-27] MEDS: Apixaban 5 MG TAB PO SCH ×2 (08:29→20:29)
[2021-04-27] MEDS: Aspirin Chewable 81 MG TAB PO SCH (08:29)
[2021-04-27] MEDS: Folic Acid 1 MG TAB PO SCH (08:30)
[2021-04-27] MEDS: Metoprolol Tartrate 25 MG TAB PO SCH ×3 (08:35→20:29)
[2021-04-27] MEDS: Nystatin 500,000 UNITS/5 ML UDCUP SSW SCH ×2 (19:56→20:28)
[2021-04-27] MEDS: Melatonin 3 MG TAB PO PRN (20:28)
[2021-04-27] MEDS: Acetaminophen 325 MG TAB PO PRN (20:29)
[2021-04-27] MEDS: Atorvastatin Calcium 10 MG TAB PO SCH (20:29)
[2021-04-28] MEDS: Cefepime 2 GM in Sodium Chloride 0.9% 100 ML IVPB SCH ×2 (04:05→17:04)
[2021-04-28] MEDS: Diltiazem 125 MG in Sodium Chloride 0.9% 100 ML IVPB SCH (04:05)
[2021-04-28 06:06] LABS: #Eosinphils 0.3 thou/uL (0.0-0.7); #Lymphocytes 1.3 thou/uL (1.20-3.40); #Monocytes 0.5 thou/uL (0.11-0.59); #Neutrophils 4.3 thou/uL (1.40-6.50); %Basophils 0.4 % (0.0-1.0); %Eosinophils 4.4 % (0.0-10.0); %Lymphocytes 20.2 % (21.0-51.0); %Monocytes 7.4 % (0.0-10.0); %Neutrophils 67.6 % (42.0-75.0); Hemoglobin 11.5 g/dL (14.0-18.0); Mean Corpuscular HGB CONC 32.5 g/dL (32.0-36.0); Mean Corpuscular Hemoglobin 29.6 pg (27.0-31.0); Mean Corpuscular Volume 91.3 fL (78.0-98.0); Mean Platelet Volume 8.6 fL (7.4-10.4); Platelet Count 240 thou/uL (130-400); RBC Distribution Width 14.6 % (11.5-14.5); Red Blood Cell (RBC) Count 3.87 mill/uL (4.70-6.10); White Blood Cell (WBC) Count 6.3 thou/uL (4.8-10.8)
[2021-04-28 06:10] LABS: INR-International Normal Ratio 1.6; Prothrombin Time 19.3 sec (12.0-14.7)
[2021-04-28 06:11] LABS: PTT 45.8 sec (22.9-36.1)
[2021-04-28 06:30] LABS: Anion Gap 11 mmol/L (10-20); BUN (Urea Nitrogen) 24 mg/dL (8.4-25.7); Calc. Creatinine Clearance 82 mL/min (70-130); Calcium 9.7 mg/dL (7.8-10.44); Carbon Dioxide 23 mmol/L (23-31); Chloride 110 mmol/L (98-107); Glucose 121 mg/dL (83-110); Magnesium 1.9 mg/dL (1.6-2.6); Phosphorus 2.4 mg/dL (2.3-4.7); Potassium 3.4 mmol/L (3.5-5.1); Sodium 141 mmol/L (136-145)
[2021-04-28] MEDS ORDERED: Diltiazem 125 MG in Sodium Chloride 0.9% 100 ML IVPB SCH (06:38)
[2021-04-28] MEDS ORDERED: Magnesium 2 GM/50 ML 2 GM in Premix Bag 1 BAG IVPB SCH (08:00)
[2021-04-28] MEDS ORDERED: Potassium Chloride 20 MEQ TAB PO SCH (08:00)
[2021-04-28] MEDS ORDERED: Potassium Chloride 40 MEQ in Premix Bag 1 BAG IVPB SCH (09:00)
[2021-04-28] MEDS: Nystatin 500,000 UNITS/5 ML UDCUP SSW SCH ×4 (10:06→21:25)
[2021-04-28] MEDS: Metoprolol Tartrate 50 MG TAB PO SCH ×2 (10:07→21:25)
[2021-04-28] MEDS: Apixaban 5 MG TAB PO SCH ×2 (10:07→21:25)
[2021-04-28] MEDS: Folic Acid 1 MG TAB PO SCH (10:07)
[2021-04-28] MEDS: Aspirin Chewable 81 MG TAB PO SCH (10:07)
[2021-04-28] MEDS: Atorvastatin Calcium 10 MG TAB PO SCH (21:25)
[2021-04-29] MEDS: Cefepime 2 GM in Sodium Chloride 0.9% 100 ML IVPB SCH ×2 (05:27→16:34)
[2021-04-29 06:01] LABS: INR-International Normal Ratio 1.8; PTT 29.1 sec (22.9-36.1); Prothrombin Time 20.8 sec (12.0-14.7)
[2021-04-29 06:04] LABS: #Eosinphils 0.3 thou/uL (0.0-0.7); #Lymphocytes 1.6 thou/uL (1.20-3.40); #Monocytes 0.7 thou/uL (0.11-0.59); %Basophils 0.5 % (0.0-1.0); %Eosinophils 4.1 % (0.0-10.0); %Lymphocytes 23.8 % (21.0-51.0); %Monocytes 10.7 % (0.0-10.0); %Neutrophils 60.9 % (42.0-75.0); Hemoglobin 12.2 g/dL (14.0-18.0); Mean Corpuscular HGB CONC 31.7 g/dL (32.0-36.0); Mean Corpuscular Hemoglobin 29.1 pg (27.0-31.0); Mean Corpuscular Volume 91.9 fL (78.0-98.0); Mean Platelet Volume 8.9 fL (7.4-10.4); Platelet Count 215 thou/uL (130-400); RBC Distribution Width 14.6 % (11.5-14.5); Red Blood Cell (RBC) Count 4.18 mill/uL (4.70-6.10); White Blood Cell (WBC) Count 6.5 thou/uL (4.8-10.8)
[2021-04-29 06:08] LABS: Anion Gap 10 mmol/L (10-20); BUN (Urea Nitrogen) 17 mg/dL (8.4-25.7); Calc. Creatinine Clearance 88 mL/min (70-130); Calcium 9.9 mg/dL (7.8-10.44); Carbon Dioxide 22 mmol/L (23-31); Chloride 111 mmol/L (98-107); Glucose 109 mg/dL (83-110); Magnesium 2.1 mg/dL (1.6-2.6); Phosphorus 2.1 mg/dL (2.3-4.7); Potassium 4.2 mmol/L (3.5-5.1); Sodium 139 mmol/L (136-145)
[2021-04-29] MEDS: Folic Acid 1 MG TAB PO SCH ×2 (08:54→09:19)
[2021-04-29] MEDS: Metoprolol Tartrate 100 MG TAB PO SCH ×3 (08:54→21:03)
[2021-04-29] MEDS: Apixaban 5 MG TAB PO SCH ×4 (08:54→21:03)
[2021-04-29] MEDS: Nystatin 500,000 UNITS/5 ML UDCUP SSW SCH ×5 (08:54→21:03)
[2021-04-29] MEDS: Aspirin Chewable 81 MG TAB PO SCH ×2 (08:54→09:19)
[2021-04-29] MEDS ORDERED: Diltiazem 125 MG in Sodium Chloride 0.9% 100 ML IVPB SCH (12:00)
[2021-04-29 16:23] LABS: ALT (SGPT) 8 U/L (8-55); AST (SGOT) 15 U/L (5-34); Alkaline Phosphatase 82 U/L (40-110); Bilirubin, Direct 0.2 mg/dL (0.1-0.3); Bilirubin, Total 0.5 mg/dL (0.2-1.2); Protein, Total 6.5 g/dL (5.8-8.1)
[2021-04-29] MEDS: Melatonin 3 MG TAB PO SCH (21:03)
[2021-04-29] MEDS: Atorvastatin Calcium 10 MG TAB PO SCH (21:03)
[2021-04-30] MEDS ORDERED: Diltiazem HCl 125 MG, Admixture Fee 1 EACH in Sodium Chloride 0.9% 100 ML IVPB SCH (05:00)
[2021-04-30] MEDS: Diltiazem HCl 125 MG, Admixture Fee 1 EACH in Sodium Chloride 0.9% 100 ML IVPB SCH (05:29)
[2021-04-30] MEDS: Cefepime 2 GM in Sodium Chloride 0.9% 100 ML IVPB SCH (05:29)
[2021-04-30 06:58] LABS: #Eosinphils 0.2 thou/uL (0.0-0.7); #Lymphocytes 1.5 thou/uL (1.20-3.40); #Monocytes 0.6 thou/uL (0.11-0.59); %Basophils 0.1 % (0.0-1.0); %Eosinophils 3.5 % (0.0-10.0); %Lymphocytes 28.4 % (21.0-51.0); %Monocytes 10.6 % (0.0-10.0); %Neutrophils 57.4 % (42.0-75.0); Mean Corpuscular Volume 90.6 fL (78.0-98.0); Mean Platelet Volume 8.9 fL (7.4-10.4); Platelet Count 194 thou/uL (130-400); RBC Distribution Width 14.8 % (11.5-14.5); White Blood Cell (WBC) Count 5.2 thou/uL (4.8-10.8)
[2021-04-30 10:51] LABS: Anion Gap 14 mmol/L (10-20); BUN (Urea Nitrogen) 16 mg/dL (8.4-25.7); Calc. Creatinine Clearance 91 mL/min (70-130); Calcium 10.1 mg/dL (7.8-10.44); Carbon Dioxide 19 mmol/L (23-31); Chloride 112 mmol/L (98-107); Glucose 103 mg/dL (83-110); Magnesium 1.9 mg/dL (1.6-2.6); Phosphorus 2.9 mg/dL (2.3-4.7); Potassium 4.2 mmol/L (3.5-5.1); Sodium 141 mmol/L (136-145)
[2021-04-30] MEDS: Metoprolol Tartrate 100 MG TAB PO SCH ×2 (11:51→23:03)
[2021-04-30] MEDS: Aspirin Chewable 81 MG TAB PO SCH (11:51)
[2021-04-30] MEDS: Apixaban 5 MG TAB PO SCH ×2 (11:51→23:03)
[2021-04-30] MEDS: Folic Acid 1 MG TAB PO SCH (11:51)
[2021-04-30] MEDS: Nystatin 500,000 UNITS/5 ML UDCUP SSW SCH ×5 (11:52→23:04)
[2021-04-30] MEDS ORDERED: HYDROmorphone 0.5 MG/0.5 ML SYRINGE SLOW IVP SCH (13:00)
[2021-04-30] MEDS ORDERED: Amlodipine 5 MG TAB PO SCH (13:00)
[2021-04-30] MEDS ORDERED: Lisinopril 20 MG TAB PO SCH (13:00)
[2021-04-30 19:25] LABS: SARS-CoV-2 PCR by NAA Not Detected (NotDetected)
[2021-04-30] MEDS: Sodium Chloride 0.9% 1,000 ML IV SCH (23:02)
[2021-04-30] MEDS: Amlodipine 5 MG TAB PO SCH (23:02)
[2021-04-30] MEDS: Melatonin 3 MG TAB PO SCH (23:03)
[2021-04-30] MEDS: Atorvastatin Calcium 10 MG TAB PO SCH (23:03)
[2021-05-01 05:31] LABS: #Eosinphils 0.2 thou/uL (0.0-0.7); #Lymphocytes 1.2 thou/uL (1.20-3.40); #Monocytes 0.5 thou/uL (0.11-0.59); #Neutrophils 4.2 thou/uL (1.40-6.50); %Basophils 0.5 % (0.0-1.0); %Lymphocytes 18.7 % (21.0-51.0); %Monocytes 8.5 % (0.0-10.0); %Neutrophils 68.3 % (42.0-75.0); Hemoglobin 11.7 g/dL (14.0-18.0); Mean Corpuscular HGB CONC 31.3 g/dL (32.0-36.0); Mean Corpuscular Hemoglobin 27.9 pg (27.0-31.0); Mean Corpuscular Volume 89.1 fL (78.0-98.0); Mean Platelet Volume 8.7 fL (7.4-10.4); Platelet Count 245 thou/uL (130-400); RBC Distribution Width 14.5 % (11.5-14.5); White Blood Cell (WBC) Count 6.2 thou/uL (4.8-10.8)
[2021-05-01 05:48] LABS: Anion Gap 16 mmol/L (10-20); BUN (Urea Nitrogen) 17 mg/dL (8.4-25.7); Calc. Creatinine Clearance 96 mL/min (70-130); Calcium 9.7 mg/dL (7.8-10.44); Carbon Dioxide 19 mmol/L (23-31); Chloride 112 mmol/L (98-107); Glucose 97 mg/dL (83-110); Potassium 3.9 mmol/L (3.5-5.1); Sodium 143 mmol/L (136-145)
[2021-05-01] MEDS ORDERED: Finasteride 5 MG TAB PO SCH (09:00)
[2021-05-01] MEDS: Acetaminophen 650 MG Suppository PR PRN (09:29)
[2021-05-01] MEDS: Lisinopril 20 MG TAB PO SCH (10:02)
[2021-05-01] MEDS: Apixaban 5 MG TAB PO SCH ×2 (10:02→20:02)
[2021-05-01] MEDS: Folic Acid 1 MG TAB PO SCH (10:03)
[2021-05-01] MEDS: Amlodipine 5 MG TAB PO SCH ×2 (10:03→20:02)
[2021-05-01] MEDS: Aspirin Chewable 81 MG TAB PO SCH (10:03)
[2021-05-01] MEDS: Metoprolol Tartrate 100 MG TAB PO SCH ×2 (10:05→20:01)
[2021-05-01] MEDS: Nystatin 500,000 UNITS/5 ML UDCUP SSW SCH ×4 (10:11→20:02)
[2021-05-01] MEDS: Sodium Chloride 0.9% 1,000 ML IV SCH (11:23)
[2021-05-01] MEDS: Atorvastatin Calcium 10 MG TAB PO SCH (20:02)
[2021-05-02] MEDS: Sodium Chloride 0.9% 1,000 ML IV SCH ×2 (01:51→13:13)
[2021-05-02 05:34] LABS: #Eosinphils 0.3 thou/uL (0.0-0.7); #Lymphocytes 1.3 thou/uL (1.20-3.40); #Monocytes 0.6 thou/uL (0.11-0.59); #Neutrophils 3.8 thou/uL (1.40-6.50); %Basophils 0.4 % (0.0-1.0); %Eosinophils 4.8 % (0.0-10.0); %Lymphocytes 21.6 % (21.0-51.0); %Monocytes 9.9 % (0.0-10.0); %Neutrophils 63.3 % (42.0-75.0); Hemoglobin 11.5 g/dL (14.0-18.0); Mean Corpuscular Hemoglobin 28.5 pg (27.0-31.0); Mean Corpuscular Volume 89.2 fL (78.0-98.0); Mean Platelet Volume 8.6 fL (7.4-10.4); Platelet Count 241 thou/uL (130-400); RBC Distribution Width 14.7 % (11.5-14.5); Red Blood Cell (RBC) Count 4.04 mill/uL (4.70-6.10); White Blood Cell (WBC) Count 5.9 thou/uL (4.8-10.8)
[2021-05-02 05:54] LABS: Anion Gap 11 mmol/L (10-20); BUN (Urea Nitrogen) 16 mg/dL (8.4-25.7); Calc. Creatinine Clearance 96 mL/min (70-130); Calcium 9.4 mg/dL (7.8-10.44); Carbon Dioxide 22 mmol/L (23-31); Chloride 111 mmol/L (98-107); Glucose 110 mg/dL (83-110); Potassium 3.5 mmol/L (3.5-5.1); Sodium 140 mmol/L (136-145)
[2021-05-02] MEDS: Amlodipine 5 MG TAB PO SCH ×2 (08:35→20:51)
[2021-05-02] MEDS: Apixaban 5 MG TAB PO SCH ×2 (08:36→20:51)
[2021-05-02] MEDS: Lisinopril 20 MG TAB PO SCH (08:36)
[2021-05-02] MEDS: Nystatin 500,000 UNITS/5 ML UDCUP SSW SCH ×4 (08:36→20:50)
[2021-05-02] MEDS: Metoprolol Tartrate 100 MG TAB PO SCH ×2 (08:36→20:51)
[2021-05-02] MEDS: Folic Acid 1 MG TAB PO SCH (08:36)
[2021-05-02] MEDS: Aspirin Chewable 81 MG TAB PO SCH (08:36)
[2021-05-02] MEDS: Diltiazem HCl 125 MG, Admixture Fee 1 EACH in Sodium Chloride 0.9% 100 ML IVPB SCH (13:06)
[2021-05-02] MEDS: Atorvastatin Calcium 10 MG TAB PO SCH (20:50)
[2021-05-02] MEDS: Acetaminophen 325 MG TAB PO PRN (20:51)
[2021-05-03] MEDS: Sodium Chloride 0.9% 1,000 ML IV SCH ×2 (01:16→15:53)
[2021-05-03 06:16] LABS: #Basophils 0.1 thou/uL (0.0-0.2); #Eosinphils 0.2 thou/uL (0.0-0.7); #Lymphocytes 1.7 thou/uL (1.20-3.40); #Monocytes 0.5 thou/uL (0.11-0.59); #Neutrophils 3.9 thou/uL (1.40-6.50); %Basophils 0.8 % (0.0-1.0); %Lymphocytes 26.9 % (21.0-51.0); %Monocytes 8.2 % (0.0-10.0); %Neutrophils 61.2 % (42.0-75.0); Hemoglobin 12.5 g/dL (14.0-18.0); Mean Corpuscular HGB CONC 31.1 g/dL (32.0-36.0); Mean Corpuscular Hemoglobin 28.4 pg (27.0-31.0); Mean Corpuscular Volume 91.3 fL (78.0-98.0); Mean Platelet Volume 9.1 fL (7.4-10.4); Platelet Count 252 thou/uL (130-400); RBC Distribution Width 14.7 % (11.5-14.5); Red Blood Cell (RBC) Count 4.41 mill/uL (4.70-6.10); White Blood Cell (WBC) Count 6.4 thou/uL (4.8-10.8)
[2021-05-03 06:30] LABS: Anion Gap 13 mmol/L (10-20); BUN (Urea Nitrogen) 12 mg/dL (8.4-25.7); Calc. Creatinine Clearance 96 mL/min (70-130); Calcium 9.8 mg/dL (7.8-10.44); Carbon Dioxide 22 mmol/L (23-31); Chloride 108 mmol/L (98-107); Glucose 118 mg/dL (83-110); Potassium 3.5 mmol/L (3.5-5.1); Sodium 139 mmol/L (136-145)
[2021-05-03] MEDS: Folic Acid 1 MG TAB PO SCH (08:37)
[2021-05-03] MEDS: Apixaban 5 MG TAB PO SCH (08:37)
[2021-05-03] MEDS: Lisinopril 20 MG TAB PO SCH (08:37)
[2021-05-03] MEDS: Amlodipine 5 MG TAB PO SCH ×2 (08:37→20:14)
[2021-05-03] MEDS: Metoprolol Tartrate 100 MG TAB PO SCH ×2 (08:37→20:14)
[2021-05-03] MEDS: Aspirin Chewable 81 MG TAB PO SCH (08:37)
[2021-05-03] MEDS: Nystatin 500,000 UNITS/5 ML UDCUP SSW SCH ×4 (08:58→20:14)
[2021-05-03] MEDS: Atorvastatin Calcium 10 MG TAB PO SCH (20:14)
[2021-05-04 06:20] LABS: Anion Gap 10 mmol/L (10-20); BUN (Urea Nitrogen) 8 mg/dL (8.4-25.7); Calc. Creatinine Clearance 104 mL/min (70-130); Calcium 9.9 mg/dL (7.8-10.44); Carbon Dioxide 26 mmol/L (23-31); Chloride 108 mmol/L (98-107); Glucose 109 mg/dL (83-110); Potassium 3.4 mmol/L (3.5-5.1); Sodium 141 mmol/L (136-145)
[2021-05-04] MEDS: Sodium Chloride 0.9% 1,000 ML IV SCH (06:59)
[2021-05-04] MEDS ORDERED: Apixaban 5 MG TAB PO SCH (09:00)
[2021-05-04] MEDS: Folic Acid 1 MG TAB PO SCH (09:02)
[2021-05-04] MEDS: Amlodipine 5 MG TAB PO SCH (09:02)
[2021-05-04] MEDS: Aspirin Chewable 81 MG TAB PO SCH (09:02)
[2021-05-04] MEDS: Metoprolol Tartrate 100 MG TAB PO SCH (09:02)
[2021-05-04] MEDS: Lisinopril 20 MG TAB PO SCH (09:03)
[2021-05-04] MEDS: Nystatin 500,000 UNITS/5 ML UDCUP SSW SCH ×2 (09:03→12:39)
[2021-05-04 11:50] VITALS: TEMP 97.7
[2021-05-04] MEDS ORDERED: Potassium Chloride 20 MEQ TAB PO SCH (12:30)
[2021-05-04 13:31] VITALS: BP 114/68
== END 2021-05-04 14:32 | DRG 871 ==
LOC: ERS 16:39 → NEURO 19:13 → OBSVTOIN 04-22 10:51
PROVIDERS: ADMIT Family Medicine; ATTEND Internal Medicine
PROC: 02HV33Z Insertion of Infusion Device into Superior Vena Cava, Percutaneous Approach (ICD-10-PCS; principal; 2021-04-25)
PROC: B5181ZA Fluoroscopy of Superior Vena Cava using Low Osmolar Contrast, Guidance (ICD-10-PCS; 2021-04-25)
PROC: B548ZZA Ultrasonography of Superior Vena Cava, Guidance (ICD-10-PCS; 2021-04-25)
DX: A41.9 Sepsis, unspecified organism (principal); Z20.822 Contact with and (suspected) exposure to COVID-19; G93.41 Metabolic encephalopathy; J69.0 Pneumonitis due to inhalation of food and vomit; N39.0 Urinary tract infection, site not specified; I50.32 Chronic diastolic (congestive) heart failure; I13.0 Hypertensive heart and chronic kidney disease with heart failure and stage 1 through stage 4 chronic kidney disease, or unspecified chronic kidney disease; G99.2 Myelopathy in diseases classified elsewhere; I48.92 Unspecified atrial flutter; I82.622 Acute embolism and thrombosis of deep veins of left upper extremity; F03.91 Unspecified dementia, unspecified severity, with behavioral disturbance; F05 Delirium due to known physiological condition; I48.21 Permanent atrial fibrillation; B96.20 Unspecified Escherichia coli [E. coli] as the cause of diseases classified elsewhere; N18.9 Chronic kidney disease, unspecified; M48.02 Spinal stenosis, cervical region; E78.5 Hyperlipidemia, unspecified; I25.10 Atherosclerotic heart disease of native coronary artery without angina pectoris; M47.812 Spondylosis without myelopathy or radiculopathy, cervical region; M46.42 Discitis, unspecified, cervical region; D63.1 Anemia in chronic kidney disease; R77.8 Other specified abnormalities of plasma proteins; I08.3 Combined rheumatic disorders of mitral, aortic and tricuspid valves; F03.90 Unspecified dementia, unspecified severity, without behavioral disturbance, psychotic disturbance, mood disturbance, and anxiety; E53.8 Deficiency of other specified B group vitamins; Z28.21 Immunization not carried out because of patient refusal; Z79.899 Other long term (current) drug therapy; Z79.82 Long term (current) use of aspirin; Z79.01 Long term (current) use of anticoagulants; Z95.5 Presence of coronary angioplasty implant and graft; Z90.49 Acquired absence of other specified parts of digestive tract; Z98.49 Cataract extraction status, unspecified eye; Z82.49 Family history of ischemic heart disease and other diseases of the circulatory system; Z82.3 Family history of stroke; Z80.8 Family history of malignant neoplasm of other organs or systems; Z91.19 Patient's noncompliance with other medical treatment and regimen
CPT/HCPCS: 36415; 36416; 36569; 70450; 70496; 70498; 70551; 71045; 72040; 72156; 76000; 76700; 80048; 80053; 80061; 80076; 80202; 81001; 82550; 82553; 82607; 82746; 83735; 84100; 84443; 84484; 85025; 85610; 85652; 85730; 86140; 86780; 87040; 87077; 87086; 87186; 87389; 93005; 93010; 93306; 95712; 95819; 95957; 96374; 96375; A9579; C1751; G0378; J0692; J1160; J1644; J2405; J3370; J3475; J3480; J3490; J7050; U0003; U0005

== ENCOUNTER 2021-05-08 13:17 | Observation (INO) | payer MEDICARE, BC ==
[~2021-05-08 13:17] MED LIST changes: -Heparin 1,000 UNITS/ML VIAL ONE; +Iopamidol-370 76% 500 ML 1 ML ONE
[2021-05-08 13:48] LABS: #Eosinphils 0.1 thou/uL (0.0-0.7); #Lymphocytes 1.5 thou/uL (1.20-3.40); #Monocytes 0.4 thou/uL (0.11-0.59); #Neutrophils 4.3 thou/uL (1.40-6.50); %Eosinophils 2.3 % (0.0-10.0); %Lymphocytes 23.1 % (21.0-51.0); %Monocytes 6.2 % (0.0-10.0); %Neutrophils 68.5 % (42.0-75.0); Hemoglobin 12.7 g/dL (14.0-18.0); Mean Corpuscular HGB CONC 33.2 g/dL (32.0-36.0); Mean Corpuscular Hemoglobin 29.5 pg (27.0-31.0); Mean Corpuscular Volume 89.1 fL (78.0-98.0); Mean Platelet Volume 8.8 fL (7.4-10.4); Platelet Count 268 thou/uL (130-400); White Blood Cell (WBC) Count 6.3 thou/uL (4.8-10.8)
[2021-05-08 13:57] LABS: INR-International Normal Ratio 1.4; PTT 35.8 sec (22.9-36.1); Prothrombin Time 17.2 sec (12.0-14.7)
[2021-05-08 14:14] LABS: ALT (SGPT) 17 U/L (8-55); AST (SGOT) 15 U/L (5-34); Albumin 3.5 g/dL (3.4-4.8); Alkaline Phosphatase 96 U/L (40-110); Anion Gap 10 mmol/L (10-20); BUN (Urea Nitrogen) 11 mg/dL (8.4-25.7); Bilirubin, Total 0.7 mg/dL (0.2-1.2); CK (CPK) 27 U/L (30-200); Calc. Creatinine Clearance 0 mL/min (70-130); Calcium 10.1 mg/dL (7.8-10.44); Carbon Dioxide 28 mmol/L (23-31); Chloride 107 mmol/L (98-107); Globulin 3.8 g/dL (2.4-3.5); Glucose 121 mg/dL (83-110); Potassium 3.6 mmol/L (3.5-5.1); Protein, Total 7.3 g/dL (5.8-8.1); Sodium 141 mmol/L (136-145)
[2021-05-08 14:30] LABS: CKMB 0.7 ng/mL (0-6.6)
[2021-05-08 14:59] LABS: Bacteria/HPF None Seen HPF (None Seen); Bilirubin Negative (Negative); Blood, Urine Negative (Negative); Clarity Clear (Clear); Glucose, Urine (Dipstick) Normal (Negative); Ketone, Urine Negative (Negative); Leukocyte 250 Leu/uL (Negative); Nitrite Negative (Negative); Protein, Urine (Dipstick) Negative (Neg-Trace); RBC/HPF 0-3 HPF (0-3)
[2021-05-08] MEDS ORDERED: cefTRIAXone\\ROCEPHIN 1 GM VIAL ONE (15:56)
[2021-05-08 17:13] LABS: SARS-CoV-2 NAA Rapid Test Not Detected (NotDetected)
[2021-05-08] MEDS ORDERED: Labetalol HCl 100 MG/20 ML VIAL SLOW IVP PRN (18:40)
[2021-05-08] MEDS ORDERED: Nitroglycerin 0.4 MG TAB (25 Tab Bottle) SL PRN (18:41)
[2021-05-08] MEDS ORDERED: Acetaminophen 325 MG TAB PO PRN (18:42)
[2021-05-08] MEDS ORDERED: Ondansetron ODT 4 MG TAB PO PRN (18:42)
[2021-05-08] MEDS ORDERED: Acetaminophen 650 MG Suppository PR PRN (18:42)
[2021-05-08] MEDS ORDERED: Calcium Carbonate 500 MG ChewTAB PO PRN (18:42)
[2021-05-08] MEDS ORDERED: Ondansetron PF 4 MG/2 ML Vial IVP PRN (18:42)
[2021-05-08] MEDS ORDERED: Diltiazem 125 MG in Sodium Chloride 0.9% 100 ML IVPB SCH (18:45)
[2021-05-08] MEDS ORDERED: Insulin Regular 300 UNITS/3 ML VIAL SC PRN ×2 (18:59)
[2021-05-08] MEDS ORDERED: Dextrose 5% in Water 1,000 ML IV PRN (18:59)
[2021-05-08] MEDS ORDERED: Dextrose 50% Abboject 50 ML SYRINGE SLOW IVP PRN (18:59)
[2021-05-08] MEDS ORDERED: Thiamine HCl 200 MG/2 ML VIAL SLOW IVP SCH (20:00)
[2021-05-08] MEDS ORDERED: Multivitamins, Adult 10 ML, Folic Acid 1 MG in Dextrose 5 %-0.45 % NaCl 1,000 ML IV SCH (20:00)
[2021-05-08 20:24] LABS: Magnesium 1.6 mg/dL (1.6-2.6); Phosphorus 2.7 mg/dL (2.3-4.7)
[2021-05-08 20:47] LABS: CKMB 0.7 ng/mL (0-6.6)
[2021-05-08] MEDS ORDERED: Atorvastatin Calcium 40 MG TAB PO SCH (21:00)
[2021-05-08 21:22] VITALS: BMI 26.8
[2021-05-08] MEDS ORDERED: Metoprolol Tartrate 5 MG/5 ML VIAL IVP SCH (21:45)
[2021-05-08] MEDS: Folic Acid 1 MG TAB PO SCH (22:23)
[2021-05-08] MEDS: Atorvastatin Calcium 10 MG TAB PO SCH (22:23)
[2021-05-08] MEDS: Apixaban 5 MG TAB PO SCH (22:23)
[2021-05-08] MEDS: Metoprolol Tartrate 100 MG TAB PO SCH (22:24)
[2021-05-08] MEDS ORDERED: Magnesium Sulfate 4 GM in Sodium Chloride 0.9% 250 ML 250 ML IVPB SCH (22:30)
[2021-05-09] MEDS ORDERED: D5 1/2 NS w/20 mEq KCL 1,000 ML IV SCH (03:00)
[2021-05-09 05:05] LABS: #Eosinphils 0.1 thou/uL (0.0-0.7); #Lymphocytes 1.2 thou/uL (1.20-3.40); #Monocytes 0.4 thou/uL (0.11-0.59); %Basophils 0.5 % (0.0-1.0); %Eosinophils 2.5 % (0.0-10.0); %Lymphocytes 20.5 % (21.0-51.0); %Monocytes 7.1 % (0.0-10.0); %Neutrophils 69.4 % (42.0-75.0); Hemoglobin 11.3 g/dL (14.0-18.0); Mean Corpuscular HGB CONC 32.3 g/dL (32.0-36.0); Mean Corpuscular Hemoglobin 28.7 pg (27.0-31.0); Mean Corpuscular Volume 88.9 fL (78.0-98.0); Platelet Count 250 thou/uL (130-400); RBC Distribution Width 14.8 % (11.5-14.5); Red Blood Cell (RBC) Count 3.95 mill/uL (4.70-6.10); White Blood Cell (WBC) Count 5.7 thou/uL (4.8-10.8)
[2021-05-09 05:32] LABS: ALT (SGPT) 13 U/L (8-55); AST (SGOT) 12 U/L (5-34); Alkaline Phosphatase 81 U/L (40-110); Anion Gap 10 mmol/L (10-20); BUN (Urea Nitrogen) 8 mg/dL (8.4-25.7); Bilirubin, Total 0.6 mg/dL (0.2-1.2); Calc. Creatinine Clearance 97 mL/min (70-130); Calcium 9.4 mg/dL (7.8-10.44); Carbon Dioxide 24 mmol/L (23-31); Chloride 109 mmol/L (98-107); Globulin 3.4 g/dL (2.4-3.5); Glucose 137 mg/dL (83-110); Magnesium 2.2 mg/dL (1.6-2.6); Phosphorus 2.4 mg/dL (2.3-4.7); Potassium 3.3 mmol/L (3.5-5.1); Protein, Total 6.4 g/dL (5.8-8.1); Sodium 140 mmol/L (136-145)
[2021-05-09] MEDS ORDERED: Potassium Chloride 20 MEQ TAB PO SCH (08:00)
[2021-05-09] MEDS: Aspirin 81 mg Enteric Coated Tablet PO SCH (10:23)
[2021-05-09] MEDS: Folic Acid 1 MG TAB PO SCH ×2 (10:23→20:18)
[2021-05-09] MEDS: Metoprolol Tartrate 100 MG TAB PO SCH ×2 (10:24→20:18)
[2021-05-09] MEDS: Apixaban 5 MG TAB PO SCH ×2 (10:25→20:18)
[2021-05-09] MEDS ORDERED: Metoprolol Tartrate 5 MG/5 ML VIAL IVP PRN (14:53)
[2021-05-09] MEDS: Atorvastatin Calcium 10 MG TAB PO SCH (20:18)
[2021-05-10 06:06] LABS: Anion Gap 15 mmol/L (10-20); BUN (Urea Nitrogen) 11 mg/dL (8.4-25.7); Calc. Creatinine Clearance 86 mL/min (70-130); Calcium 9.6 mg/dL (7.8-10.44); Carbon Dioxide 21 mmol/L (23-31); Chloride 110 mmol/L (98-107); Glucose 116 mg/dL (83-110); Potassium 4.6 mmol/L (3.5-5.1); Sodium 141 mmol/L (136-145)
[2021-05-10] MEDS: Apixaban 5 MG TAB PO SCH (09:21)
[2021-05-10] MEDS: Aspirin 81 mg Enteric Coated Tablet PO SCH (09:21)
[2021-05-10] MEDS: Metoprolol Tartrate 100 MG TAB PO SCH (09:21)
[2021-05-10] MEDS: Folic Acid 1 MG TAB PO SCH (09:22)
[2021-05-10 16:03] VITALS: BP 105/82; TEMP 98.3
== END 2021-05-10 15:40 ==
LOC: ERS 13:17 → ERHOLD 16:19 → NEURO 20:58
PROVIDERS: ADMIT Internal Medicine; ATTEND Internal Medicine
DX: G92.8 Other toxic encephalopathy (principal); I48.0 Paroxysmal atrial fibrillation; I13.0 Hypertensive heart and chronic kidney disease with heart failure and stage 1 through stage 4 chronic kidney disease, or unspecified chronic kidney disease; N18.9 Chronic kidney disease, unspecified; I50.32 Chronic diastolic (congestive) heart failure; I25.10 Atherosclerotic heart disease of native coronary artery without angina pectoris; E53.8 Deficiency of other specified B group vitamins; R73.02 Impaired glucose tolerance (oral); E78.5 Hyperlipidemia, unspecified; M47.812 Spondylosis without myelopathy or radiculopathy, cervical region; Z79.01 Long term (current) use of anticoagulants; Z79.82 Long term (current) use of aspirin; Z79.899 Other long term (current) drug therapy; Z95.5 Presence of coronary angioplasty implant and graft; Z20.822 Contact with and (suspected) exposure to COVID-19; R13.19 Other dysphagia
CPT/HCPCS: 0240U; 70496; 70498; 71045; 80048; 80053 ×2; 82550; 82553; 82962 ×3; 83735 ×2; 83880; 84100 ×2; 84484 ×2; 85025 ×2; 85610; 85730; 93005; 94760; 96365; 96366; 96367; 96368; 96375; 96376; 97110; 97139 ×2; 97530 ×3; 99285; G0378 ×3; 36415; 36416; 70450; 81003; 81015; J0696; J1815; J3411; J3475; J7042; J7050; Q9967

== ENCOUNTER 2021-05-26 11:38 | Inpatient (IN) | payer MEDICARE, BC ==
[2021-05-26] MEDS ORDERED: cefTRIAXone\\ROCEPHIN 2 GM VIAL ONE (12:23)
[2021-05-26 12:52] LABS: Bacteria/HPF None Seen HPF (None Seen); Bilirubin Negative (Negative); Blood, Urine Trace (Negative); Clarity Clear (Clear); Glucose, Urine (Dipstick) Normal (Negative); Ketone, Urine Negative (Negative); Leukocyte Negative Leu/uL (Negative); Nitrite Negative (Negative); Protein, Urine (Dipstick) Negative (Neg-Trace); Specific Gravity, Urine 1.016 (1.002-1.036); Squamous Epithelial 0-3 HPF (0-3); Urobilinogen Normal mg/dL (Less than 2); WBC/HPF 0-3 HPF (0-3); pH, Urine 6.5 (5.0-9.0)
[2021-05-26 13:22] LABS: SARS-CoV-2 NAA Rapid Test DETECTED (NotDetected)
[2021-05-26] MEDS ORDERED: Acetaminophen 500 MG TAB ONE (13:37)
[2021-05-26] MEDS ORDERED: Acetaminophen 325 MG TAB PO PRN (14:00)
[2021-05-26] MEDS ORDERED: Ondansetron ODT 4 MG TAB SL PRN (14:00)
[2021-05-26] MEDS ORDERED: Ondansetron PF 4 MG/2 ML Vial IVP PRN (14:00)
[2021-05-26 14:12] LABS: INR-International Normal Ratio 1.4; PTT 35.9 sec (22.9-36.1); Prothrombin Time 17.1 sec (12.0-14.7)
[2021-05-26 14:22] LABS: ALT (SGPT) 8 U/L (8-55); AST (SGOT) 12 U/L (5-34); Albumin 3.5 g/dL (3.4-4.8); Alkaline Phosphatase 95 U/L (40-110); Anion Gap 13 mmol/L (10-20); BUN (Urea Nitrogen) 11 mg/dL (8.4-25.7); Bilirubin, Total 0.7 mg/dL (0.2-1.2); Calc. Creatinine Clearance 0 mL/min (70-130); Calcium 9.8 mg/dL (7.8-10.44); Carbon Dioxide 24 mmol/L (23-31); Chloride 109 mmol/L (98-107); Globulin 3.9 g/dL (2.4-3.5); Glucose 111 mg/dL (83-110); Protein, Total 7.4 g/dL (5.8-8.1); Sodium 142 mmol/L (136-145)
[2021-05-26 15:14] LABS: #Eosinphils 0.1 thou/uL (0.0-0.7); #Monocytes 0.5 thou/uL (0.11-0.59); #Neutrophils 4.9 thou/uL (1.40-6.50); %Basophils 0.4 % (0.0-1.0); %Eosinophils 0.9 % (0.0-10.0); %Lymphocytes 15.5 % (21.0-51.0); %Monocytes 7.3 % (0.0-10.0); %Neutrophils 75.9 % (42.0-75.0); Hemoglobin 11.2 g/dL (14.0-18.0); Mean Corpuscular HGB CONC 32.1 g/dL (32.0-36.0); Mean Corpuscular Hemoglobin 29.2 pg (27.0-31.0); Mean Platelet Volume 8.8 fL (7.4-10.4); Platelet Count 200 thou/uL (130-400); RBC Distribution Width 15.4 % (11.5-14.5); Red Blood Cell (RBC) Count 3.84 mill/uL (4.70-6.10); White Blood Cell (WBC) Count 6.4 thou/uL (4.8-10.8)
[2021-05-26] MEDS ORDERED: Albuterol Sulfate 2.5 mg/3 ml Neb EZPAP PRN (16:50)
[2021-05-26] MEDS ORDERED: GUAIFENESIN SF SOLN 200 MG/10 ML UDCUP PO PRN (16:50)
[2021-05-26] MEDS ORDERED: Magnesium 2 GM/50 ML 2 GM in Premix Bag 1 BAG IVPB SCH (17:30)
[2021-05-26 17:31] LABS: Magnesium 1.7 mg/dL (1.6-2.6)
[2021-05-26] MEDS ORDERED: Magnesium 2 GM/50 ML BAG (IN WATER) ONE (18:27)
[2021-05-26] MEDS: Metoprolol Tartrate 100 MG TAB PO SCH (23:00)
[2021-05-26] MEDS: Apixaban 5 MG TAB PO SCH (23:00)
[2021-05-27] MEDS: Atorvastatin Calcium 10 MG TAB PO SCH ×2 (04:06→21:24)
[2021-05-27 05:37] LABS: Anion Gap 16 mmol/L (10-20); BUN (Urea Nitrogen) 11 mg/dL (8.4-25.7); Calc. Creatinine Clearance 0 mL/min (70-130); Calcium 8.8 mg/dL (7.8-10.44); Carbon Dioxide 17 mmol/L (23-31); Chloride 109 mmol/L (98-107); Glucose 110 mg/dL (83-110); Potassium 4.3 mmol/L (3.5-5.1); Sodium 138 mmol/L (136-145)
[2021-05-27] MEDS ORDERED: Metoprolol Tartrate 5 MG/5 ML VIAL IVP SCH (06:11)
[2021-05-27] MEDS ORDERED: Metoprolol Tartrate 5 MG/5 ML VIAL ONE (06:16)
[2021-05-27 06:43] LABS: %Basophils 0.9 % (0.0-1.0); %Eosinophils 1.1 % (0.0-10.0); %Lymphocytes 23.3 % (21.0-51.0); %Neutrophils 63.8 % (42.0-75.0); Hemoglobin 11.7 g/dL (14.0-18.0); Mean Corpuscular HGB CONC 32.2 g/dL (32.0-36.0); Mean Corpuscular Volume 90.1 fL (78.0-98.0); Mean Platelet Volume 10.1 fL (7.4-10.4); Platelet Count 188 thou/uL (130-400); RBC Distribution Width 15.4 % (11.5-14.5); Red Blood Cell (RBC) Count 4.01 mill/uL (4.70-6.10); White Blood Cell (WBC) Count 5.4 thou/uL (4.8-10.8)
[2021-05-27 06:45] LABS: #Eosinphils 0.1 thou/uL (0.0-0.7); #Monocytes 0.6 thou/uL (0.11-0.59)
[2021-05-27 06:46] LABS: #Lymphocytes 1.3 thou/uL (1.20-3.40); #Neutrophils 3.5 thou/uL (1.40-6.50)
[2021-05-27] MEDS: Apixaban 5 MG TAB PO SCH ×2 (08:30→21:24)
[2021-05-27] MEDS: Aspirin Chewable 81 MG TAB PO SCH (08:31)
[2021-05-27] MEDS: Metoprolol Tartrate 100 MG TAB PO SCH ×2 (08:31→21:24)
[2021-05-27] MEDS: Diltiazem 125 MG in Sodium Chloride 0.9% 100 ML IVPB SCH (13:19)
[2021-05-27] MEDS ORDERED: Diltiazem 125 MG/25 ML ONE (13:20)
[2021-05-27 15:55] VITALS: BMI 25.7
[2021-05-27] MEDS ORDERED: FLU VACC QS2021-22(65YR UP)/PF 240 MCG/0.7 ML SYRINGE IM ONE (17:00)
[2021-05-27] MEDS ORDERED: Vancomycin HCl 1 GM in Sodium Chloride 0.9% 250 ML 250 ML IVPB SCH ×2 (17:26→21:00)
[2021-05-27] MEDS ORDERED: Cefepime 2 GM in Sodium Chloride 0.9% 100 ML IVPB SCH ×2 (18:30→21:00)
[2021-05-27] MEDS ORDERED: VANCOMYCIN 1.75 GM/350 ML BAG 1.75 GM in Premix Bag 1 BAG IVPB SCH (19:00)
[2021-05-28 06:57] LABS: #Eosinphils 0.1 thou/uL (0.0-0.7); #Lymphocytes 1.1 thou/uL (1.20-3.40); #Monocytes 0.3 thou/uL (0.11-0.59); #Neutrophils 2.4 thou/uL (1.40-6.50); %Eosinophils 1.4 % (0.0-10.0); %Lymphocytes 29.3 % (21.0-51.0); %Monocytes 7.1 % (0.0-10.0); %Neutrophils 62.2 % (42.0-75.0); Mean Corpuscular HGB CONC 32.3 g/dL (32.0-36.0); Mean Corpuscular Hemoglobin 29.3 pg (27.0-31.0); Mean Corpuscular Volume 90.7 fL (78.0-98.0); Platelet Count 205 thou/uL (130-400); RBC Distribution Width 15.3 % (11.5-14.5); Red Blood Cell (RBC) Count 4.11 mill/uL (4.70-6.10); White Blood Cell (WBC) Count 3.9 thou/uL (4.8-10.8)
[2021-05-28 07:24] LABS: CRP (Inflammatory) 6.56 mg/dL (= or < 0.5); Magnesium 1.8 mg/dL (1.6-2.6)
[2021-05-28 07:26] LABS: ALT (SGPT) 12 U/L (8-55); AST (SGOT) 13 U/L (5-34); Albumin 3.2 g/dL (3.4-4.8); Alkaline Phosphatase 82 U/L (40-110); Anion Gap 14 mmol/L (10-20); BUN (Urea Nitrogen) 15 mg/dL (8.4-25.7); Bilirubin, Total 0.7 mg/dL (0.2-1.2); Calc. Creatinine Clearance 80 mL/min (70-130); Calcium 9.3 mg/dL (7.8-10.44); Carbon Dioxide 23 mmol/L (23-31); Chloride 105 mmol/L (98-107); Globulin 3.8 g/dL (2.4-3.5); Glucose 109 mg/dL (83-110); Phosphorus 2.6 mg/dL (2.3-4.7); Potassium 3.6 mmol/L (3.5-5.1); Sodium 138 mmol/L (136-145)
[2021-05-28] MEDS ORDERED: Sodium Chloride 0.9% 100 ML ONE ×2 (07:42→07:46)
[2021-05-28] MEDS ORDERED: Sodium Chloride 0.9% 0 ML ONE (07:42)
[2021-05-28] MEDS: Apixaban 5 MG TAB PO SCH ×2 (08:08→20:14)
[2021-05-28] MEDS: Metoprolol Tartrate 100 MG TAB PO SCH ×2 (08:08→20:14)
[2021-05-28] MEDS: Finasteride 5 MG TAB PO SCH (08:08)
[2021-05-28] MEDS: Aspirin Chewable 81 MG TAB PO SCH (08:08)
[2021-05-28] MEDS: Lisinopril 20 MG TAB PO SCH (08:08)
[2021-05-28] MEDS: Folic Acid 1 MG TAB PO SCH (08:08)
[2021-05-28] MEDS: Cefepime 2 GM in Sodium Chloride 0.9% 100 ML IVPB SCH ×2 (08:14→20:13)
[2021-05-28] MEDS ORDERED: Cefepime 2 GM VIAL ONE (08:17)
[2021-05-28] MEDS: VANCOMYCIN 1.25 GM/250 ML BAG 1.25 GM in Premix Bag 1 BAG IVPB SCH ×2 (09:00→20:14)
[2021-05-28] MEDS: Atorvastatin Calcium 10 MG TAB PO SCH (20:14)
[2021-05-29] MEDS: Cefepime 2 GM in Sodium Chloride 0.9% 100 ML IVPB SCH (07:53)
[2021-05-29] MEDS: Aspirin Chewable 81 MG TAB PO SCH (07:54)
[2021-05-29] MEDS: Apixaban 5 MG TAB PO SCH ×2 (07:54→20:19)
[2021-05-29] MEDS: Lisinopril 20 MG TAB PO SCH (07:54)
[2021-05-29] MEDS: Finasteride 5 MG TAB PO SCH (07:54)
[2021-05-29] MEDS: Metoprolol Tartrate 100 MG TAB PO SCH ×2 (07:55→20:19)
[2021-05-29] MEDS: Folic Acid 1 MG TAB PO SCH (07:55)
[2021-05-29 08:12] LABS: #Eosinphils 0.1 thou/uL (0.0-0.7); #Lymphocytes 2.3 thou/uL (1.20-3.40); #Monocytes 0.8 thou/uL (0.11-0.59); %Basophils 0.6 % (0.0-1.0); %Eosinophils 1.3 % (0.0-10.0); %Lymphocytes 36.6 % (21.0-51.0); %Monocytes 13.2 % (0.0-10.0); %Neutrophils 48.3 % (42.0-75.0); Hemoglobin 11.8 g/dL (14.0-18.0); Mean Corpuscular Hemoglobin 28.2 pg (27.0-31.0); Mean Corpuscular Volume 90.9 fL (78.0-98.0); Mean Platelet Volume 9.7 fL (7.4-10.4); Platelet Count 164 thou/uL (130-400); White Blood Cell (WBC) Count 6.2 thou/uL (4.8-10.8)
[2021-05-29 08:19] LABS: Vancomycin, Trough 12.6 ug/mL
[2021-05-29 08:23] LABS: ALT (SGPT) 8 U/L (8-55); AST (SGOT) 14 U/L (5-34); Albumin 2.8 g/dL (3.4-4.8); Alkaline Phosphatase 69 U/L (40-110); Anion Gap 15 mmol/L (10-20); BUN (Urea Nitrogen) 13 mg/dL (8.4-25.7); Bilirubin, Total 0.5 mg/dL (0.2-1.2); Calc. Creatinine Clearance 96 mL/min (70-130); Calcium 8.7 mg/dL (7.8-10.44); Carbon Dioxide 18 mmol/L (23-31); Chloride 106 mmol/L (98-107); Globulin 3.4 g/dL (2.4-3.5); Glucose 116 mg/dL (83-110); Magnesium 1.7 mg/dL (1.6-2.6); Phosphorus 2.4 mg/dL (2.3-4.7); Potassium 3.5 mmol/L (3.5-5.1); Protein, Total 6.2 g/dL (5.8-8.1); Sodium 135 mmol/L (136-145)
[2021-05-29] MEDS: VANCOMYCIN 1.25 GM/250 ML BAG 1.25 GM in Premix Bag 1 BAG IVPB SCH (11:06)
[2021-05-29] MEDS ORDERED: Nitroglycerin 2% Ointment 1 INCH/1 GM Packet TOP SCH (12:30)
[2021-05-29] MEDS ORDERED: Metoprolol Tartrate 5 MG/5 ML VIAL IVP SCH (12:30)
[2021-05-29] MEDS: Diltiazem 125 MG in Sodium Chloride 0.9% 100 ML IVPB SCH (14:57)
[2021-05-29] MEDS: Atorvastatin Calcium 10 MG TAB PO SCH (20:19)
[2021-05-30] MEDS: Vancomycin 1.5 GRAM/300 ML BAG 1.5 GM in Premix Bag 1 BAG IVPB SCH ×4 (04:30→18:26)
[2021-05-30 05:51] LABS: #Eosinphils 0.1 thou/uL (0.0-0.7); #Monocytes 0.6 thou/uL (0.11-0.59); #Neutrophils 1.7 thou/uL (1.40-6.50); %Basophils 0.7 % (0.0-1.0); %Lymphocytes 44.8 % (21.0-51.0); %Monocytes 13.3 % (0.0-10.0); %Neutrophils 38.1 % (42.0-75.0); Hemoglobin 12.1 g/dL (14.0-18.0); Mean Corpuscular HGB CONC 31.1 g/dL (32.0-36.0); Mean Corpuscular Hemoglobin 29.3 pg (27.0-31.0); Mean Corpuscular Volume 94.2 fL (78.0-98.0); Mean Platelet Volume 9.1 fL (7.4-10.4); Platelet Count 179 thou/uL (130-400); RBC Distribution Width 14.8 % (11.5-14.5); Red Blood Cell (RBC) Count 4.12 mill/uL (4.70-6.10); White Blood Cell (WBC) Count 4.5 thou/uL (4.8-10.8)
[2021-05-30] MEDS: Cefepime 2 GM in Sodium Chloride 0.9% 100 ML IVPB SCH ×3 (06:47→20:18)
[2021-05-30] MEDS: Metoprolol Tartrate 5 MG/5 ML VIAL IVP SCH ×5 (07:54→17:25)
[2021-05-30] MEDS: Dextrose 5%-Lactated Ringers 1,000 ML IV SCH ×3 (07:54→20:18)
[2021-05-30] MEDS: Nitroglycerin 2% Ointment 1 INCH/1 GM Packet TOP SCH ×3 (07:56→17:25)
[2021-05-30] MEDS: Diltiazem 125 MG in Sodium Chloride 0.9% 100 ML IVPB SCH (11:06)
[2021-05-30] MEDS: Metoprolol Tartrate 100 MG TAB PO SCH ×2 (11:07→20:18)
[2021-05-30] MEDS: Folic Acid 1 MG TAB PO SCH (11:07)
[2021-05-30] MEDS: Apixaban 5 MG TAB PO SCH ×2 (11:07→20:18)
[2021-05-30] MEDS: Finasteride 5 MG TAB PO SCH (11:07)
[2021-05-30] MEDS: Aspirin Chewable 81 MG TAB PO SCH (11:07)
[2021-05-30] MEDS: Lisinopril 20 MG TAB PO SCH (11:07)
[2021-05-30] MEDS: Atorvastatin Calcium 10 MG TAB PO SCH (20:18)
[2021-05-31] MEDS: Nitroglycerin 2% Ointment 1 INCH/1 GM Packet TOP SCH ×5 (01:13→11:26)
[2021-05-31 05:29] LABS: #Eosinphils 0.2 thou/uL (0.0-0.7); #Lymphocytes 1.7 thou/uL (1.20-3.40); #Monocytes 0.3 thou/uL (0.11-0.59); #Neutrophils 2.2 thou/uL (1.40-6.50); %Basophils 0.2 % (0.0-1.0); %Lymphocytes 39.3 % (21.0-51.0); %Monocytes 7.5 % (0.0-10.0); %Neutrophils 49.1 % (42.0-75.0); Hemoglobin 10.8 g/dL (14.0-18.0); Mean Corpuscular HGB CONC 32.4 g/dL (32.0-36.0); Mean Corpuscular Hemoglobin 28.8 pg (27.0-31.0); Mean Corpuscular Volume 88.8 fL (78.0-98.0); Mean Platelet Volume 9.1 fL (7.4-10.4); Platelet Count 188 thou/uL (130-400); RBC Distribution Width 14.8 % (11.5-14.5); Red Blood Cell (RBC) Count 3.76 mill/uL (4.70-6.10); White Blood Cell (WBC) Count 4.4 thou/uL (4.8-10.8)
[2021-05-31 05:47] LABS: ALT (SGPT) 8 U/L (8-55); AST (SGOT) 11 U/L (5-34); Albumin 2.9 g/dL (3.4-4.8); Alkaline Phosphatase 73 U/L (40-110); Anion Gap 9 mmol/L (10-20); BUN (Urea Nitrogen) 12 mg/dL (8.4-25.7); Bilirubin, Total 0.4 mg/dL (0.2-1.2); Calc. Creatinine Clearance 93 mL/min (70-130); Calcium 8.6 mg/dL (7.8-10.44); Carbon Dioxide 23 mmol/L (23-31); Chloride 108 mmol/L (98-107); Globulin 3.3 g/dL (2.4-3.5); Glucose 138 mg/dL (83-110); Magnesium 1.6 mg/dL (1.6-2.6); Phosphorus 1.6 mg/dL (2.3-4.7); Potassium 3.2 mmol/L (3.5-5.1); Protein, Total 6.2 g/dL (5.8-8.1); Sodium 137 mmol/L (136-145)
[2021-05-31] MEDS ORDERED: K-Phos Neutral 250 MG TAB PO SCH (08:30)
[2021-05-31] MEDS: Aspirin Chewable 81 MG TAB PO SCH (08:36)
[2021-05-31] MEDS: Apixaban 5 MG TAB PO SCH ×2 (08:36→20:45)
[2021-05-31] MEDS: Cefepime 2 GM in Sodium Chloride 0.9% 100 ML IVPB SCH (08:37)
[2021-05-31] MEDS: Lisinopril 20 MG TAB PO SCH (08:37)
[2021-05-31] MEDS: Folic Acid 1 MG TAB PO SCH (08:37)
[2021-05-31] MEDS: Metoprolol Tartrate 100 MG TAB PO SCH ×2 (08:37→20:46)
[2021-05-31] MEDS: Finasteride 5 MG TAB PO SCH (08:37)
[2021-05-31] MEDS: Vancomycin 1.5 GRAM/300 ML BAG 1.5 GM in Premix Bag 1 BAG IVPB SCH (09:30)
[2021-05-31] MEDS ORDERED: Diltiazem 125 MG in Sodium Chloride 0.9% 100 ML IVPB SCH (13:51)
[2021-05-31] MEDS: Dextrose 5%-Lactated Ringers 1,000 ML IV SCH (14:01)
[2021-05-31] MEDS: Atorvastatin Calcium 10 MG TAB PO SCH (20:45)
[2021-05-31] MEDS: Cefdinir 300 MG CAP PO SCH (20:45)
[2021-06-01 07:11] LABS: #Eosinphils 0.1 thou/uL (0.0-0.7); #Lymphocytes 1.4 thou/uL (1.20-3.40); #Monocytes 0.4 thou/uL (0.11-0.59); #Neutrophils 1.7 thou/uL (1.40-6.50); %Basophils 0.1 % (0.0-1.0); %Eosinophils 2.8 % (0.0-10.0); %Lymphocytes 39.3 % (21.0-51.0); %Monocytes 10.9 % (0.0-10.0); Hemoglobin 10.9 g/dL (14.0-18.0); Mean Corpuscular HGB CONC 31.6 g/dL (32.0-36.0); Mean Corpuscular Hemoglobin 28.2 pg (27.0-31.0); Mean Corpuscular Volume 89.3 fL (78.0-98.0); Mean Platelet Volume 8.8 fL (7.4-10.4); Platelet Count 182 thou/uL (130-400); RBC Distribution Width 14.6 % (11.5-14.5); Red Blood Cell (RBC) Count 3.87 mill/uL (4.70-6.10); White Blood Cell (WBC) Count 3.6 thou/uL (4.8-10.8)
[2021-06-01 07:42] LABS: ALT (SGPT) Less than 7 U/L (8-55); AST (SGOT) 10 U/L (5-34); Albumin 2.8 g/dL (3.4-4.8); Alkaline Phosphatase 67 U/L (40-110); Anion Gap 12 mmol/L (10-20); BUN (Urea Nitrogen) 8 mg/dL (8.4-25.7); Bilirubin, Total 0.5 mg/dL (0.2-1.2); Calc. Creatinine Clearance 100 mL/min (70-130); Calcium 8.7 mg/dL (7.8-10.44); Carbon Dioxide 23 mmol/L (23-31); Chloride 106 mmol/L (98-107); Globulin 3.3 g/dL (2.4-3.5); Glucose 125 mg/dL (83-110); Magnesium 1.5 mg/dL (1.6-2.6); Protein, Total 6.1 g/dL (5.8-8.1); Sodium 138 mmol/L (136-145)
[2021-06-01 08:06] LABS: Vancomycin, Trough 15.3 ug/mL
[2021-06-01] MEDS ORDERED: Potassium Chloride 40 MEQ in Sodium Chloride 0.9% 250 ML 250 ML IVPB SCH (08:45)
[2021-06-01] MEDS ORDERED: Magnesium 2 GM/50 ML 2 GM in Premix Bag 1 BAG IVPB SCH (08:45)
[2021-06-01] MEDS: Metoprolol Tartrate 100 MG TAB PO SCH ×2 (09:38→21:25)
[2021-06-01] MEDS: Folic Acid 1 MG TAB PO SCH (09:38)
[2021-06-01] MEDS: Apixaban 5 MG TAB PO SCH ×2 (09:38→21:24)
[2021-06-01] MEDS: Finasteride 5 MG TAB PO SCH (09:38)
[2021-06-01] MEDS: Aspirin Chewable 81 MG TAB PO SCH (09:38)
[2021-06-01] MEDS: Cefdinir 300 MG CAP PO SCH ×2 (09:38→21:25)
[2021-06-01] MEDS: Lisinopril 20 MG TAB PO SCH (09:38)
[2021-06-01] MEDS: Potassium Chloride 20 MEQ TAB PO SCH (09:38)
[2021-06-01] MEDS ORDERED: Potassium Chloride 20 MEQ TAB PO SCH (14:00)
[2021-06-01 18:47] LABS: Potassium 4.1 mmol/L (3.5-5.1)
[2021-06-01] MEDS: Atorvastatin Calcium 10 MG TAB PO SCH (21:24)
[2021-06-02] MEDS: Cefdinir 300 MG CAP PO SCH ×2 (08:41→21:14)
[2021-06-02] MEDS: Folic Acid 1 MG TAB PO SCH (08:42)
[2021-06-02] MEDS: Metoprolol Tartrate 100 MG TAB PO SCH ×2 (08:42→21:14)
[2021-06-02] MEDS: Lisinopril 20 MG TAB PO SCH (08:42)
[2021-06-02] MEDS: Potassium Chloride 20 MEQ TAB PO SCH (08:42)
[2021-06-02] MEDS: Finasteride 5 MG TAB PO SCH (08:42)
[2021-06-02] MEDS: Aspirin Chewable 81 MG TAB PO SCH (08:42)
[2021-06-02] MEDS: Apixaban 5 MG TAB PO SCH ×2 (08:43→21:13)
[2021-06-02] MEDS: Atorvastatin Calcium 10 MG TAB PO SCH (21:14)
[2021-06-03] MEDS: Cefdinir 300 MG CAP PO SCH (08:25)
[2021-06-03] MEDS: Apixaban 5 MG TAB PO SCH (08:25)
[2021-06-03] MEDS: Potassium Chloride 20 MEQ TAB PO SCH (08:25)
[2021-06-03] MEDS: Aspirin Chewable 81 MG TAB PO SCH (08:25)
[2021-06-03] MEDS: Folic Acid 1 MG TAB PO SCH (08:25)
[2021-06-03] MEDS: Lisinopril 20 MG TAB PO SCH (08:25)
[2021-06-03] MEDS: Metoprolol Tartrate 100 MG TAB PO SCH (08:25)
[2021-06-03] MEDS: Finasteride 5 MG TAB PO SCH (08:25)
[2021-06-03 15:21] LABS: ALT (SGPT) 9 U/L (8-55); AST (SGOT) 15 U/L (5-34); Albumin 3.2 g/dL (3.4-4.8); Alkaline Phosphatase 88 U/L (40-110); Anion Gap 15 mmol/L (10-20); BUN (Urea Nitrogen) 12 mg/dL (8.4-25.7); Bilirubin, Total 0.6 mg/dL (0.2-1.2); Calc. Creatinine Clearance 89 mL/min (70-130); Calcium 9.4 mg/dL (7.8-10.44); Carbon Dioxide 20 mmol/L (23-31); Chloride 106 mmol/L (98-107); Glucose 113 mg/dL (83-110); Magnesium 1.8 mg/dL (1.6-2.6); Potassium 3.5 mmol/L (3.5-5.1); Protein, Total 7.2 g/dL (5.8-8.1); Sodium 137 mmol/L (136-145)
[2021-06-03 17:10] VITALS: TEMP 97.9
[2021-06-03 17:21] VITALS: BP 125/83
== END 2021-06-03 18:20 | DRG 177 ==
LOC: ERS 11:38 → ERHOLD 13:59 → 2SE 05-27 15:45
PROVIDERS: ADMIT Family Medicine; ATTEND Internal Medicine
PROC: 8E0ZXY6 Isolation (ICD-10-PCS; principal; 2021-05-26)
DX: U07.1 COVID-19 (principal); J15.9 Unspecified bacterial pneumonia; G93.41 Metabolic encephalopathy; I50.32 Chronic diastolic (congestive) heart failure; I13.0 Hypertensive heart and chronic kidney disease with heart failure and stage 1 through stage 4 chronic kidney disease, or unspecified chronic kidney disease; I82.622 Acute embolism and thrombosis of deep veins of left upper extremity; I48.21 Permanent atrial fibrillation; I25.10 Atherosclerotic heart disease of native coronary artery without angina pectoris; N40.0 Benign prostatic hyperplasia without lower urinary tract symptoms; F03.90 Unspecified dementia, unspecified severity, without behavioral disturbance, psychotic disturbance, mood disturbance, and anxiety; E78.5 Hyperlipidemia, unspecified; M10.9 Gout, unspecified; N18.9 Chronic kidney disease, unspecified; E53.8 Deficiency of other specified B group vitamins; M48.02 Spinal stenosis, cervical region; Z79.01 Long term (current) use of anticoagulants; Z87.440 Personal history of urinary (tract) infections; Z95.5 Presence of coronary angioplasty implant and graft; Z90.49 Acquired absence of other specified parts of digestive tract; Z98.49 Cataract extraction status, unspecified eye; Z79.899 Other long term (current) drug therapy; Z79.82 Long term (current) use of aspirin
CPT/HCPCS: 0240U; 36415; 36416; 70450; 71045; 80048; 80053; 80202; 81003; 81015; 83605; 83735; 84100; 84145; 84484; 85025; 85610; 85730; 86140; 87040; 87086; 87149; 93005; J0692; J0696; J3370; J3475; J3480; J3490; J7050

== ENCOUNTER 2021-06-21 20:58 | Inpatient (IN) | payer MEDICARE, BC ==
[2021-06-21] MEDS ORDERED: Naloxone HCl 0.4 mg/ml Vial ONE (21:15)
[2021-06-21 21:26] LABS: Bilirubin Negative (Negative); Blood, Urine Negative (Negative); Clarity Clear (Clear); Glucose, Urine (Dipstick) Normal (Negative); Ketone, Urine Negative (Negative); Leukocyte 75 Leu/uL (Negative); Mucous/LPF Rare LPF (<2+); Nitrite Negative (Negative); Protein, Urine (Dipstick) 10 mg/dL (Neg-Trace); RBC/HPF 0-3 HPF (0-3); Specific Gravity, Urine 1.028 (1.002-1.036); Squamous Epithelial 0-3 HPF (0-3); Urobilinogen Normal mg/dL (Less than 2); pH, Urine 5.5 (5.0-9.0)
[2021-06-21 21:33] LABS: Bacteria/HPF None Seen HPF (None Seen); Transitional Epithelial 0-3 HPF (None Seen)
[2021-06-21 21:34] LABS: Calcium Oxalate Crystals Rare HPF (None Seen)
[2021-06-21 21:35] LABS: Amphetamine Not Detected (NotDetected); Barbiturates Screen Not Detected (NotDetected); Benzodiazepine Screen Not Detected (NotDetected); Cocaine Metabolite Screen Not Detected (NotDetected); Methadone Not Detected (NotDetected); Methamphetamine Not Detected (NotDetected); Opiate Screen Not Detected (NotDetected); Oxycodone Screen Not Detected (NotDetected); Phencyclidine (PCP) Not Detected (NotDetected); THC/Cannabinoid Screen Not Detected (NotDetected); Tricyclic Screen Detected (NotDetected)
[2021-06-21 21:37] LABS: #Eosinphils 0.1 thou/uL (0.0-0.7); #Lymphocytes 1.6 thou/uL (1.20-3.40); #Monocytes 0.5 thou/uL (0.11-0.59); #Neutrophils 3.6 thou/uL (1.40-6.50); %Basophils 0.5 % (0.0-1.0); %Eosinophils 2.6 % (0.0-10.0); %Lymphocytes 27.6 % (21.0-51.0); %Monocytes 7.9 % (0.0-10.0); %Neutrophils 61.4 % (42.0-75.0); Mean Corpuscular HGB CONC 31.4 g/dL (32.0-36.0); Mean Corpuscular Hemoglobin 29.2 pg (27.0-31.0); Mean Platelet Volume 9.1 fL (7.4-10.4); Platelet Count 207 thou/uL (130-400); RBC Distribution Width 15.6 % (11.5-14.5); Red Blood Cell (RBC) Count 3.77 mill/uL (4.70-6.10); White Blood Cell (WBC) Count 5.8 thou/uL (4.8-10.8)
[2021-06-21 21:47] LABS: INR-International Normal Ratio 1.4; Prothrombin Time 17.2 sec (12.0-14.7)
[2021-06-21 21:58] LABS: ALT (SGPT) 7 U/L (8-55); AST (SGOT) 12 U/L (5-34); Acetaminophen Less than 6.0 mcg/mL (10.0-30.0); Albumin 2.9 g/dL (3.4-4.8); Alcohol Less than 10 mg/dL (Less than 10); Alkaline Phosphatase 84 U/L (40-110); Anion Gap 12 mmol/L (10-20); BUN (Urea Nitrogen) 16 mg/dL (8.4-25.7); Bilirubin, Total 0.3 mg/dL (0.2-1.2); Calc. Creatinine Clearance 0 mL/min (70-130); Calcium 8.7 mg/dL (7.8-10.44); Carbon Dioxide 20 mmol/L (23-31); Chloride 111 mmol/L (98-107); Globulin 3.2 g/dL (2.4-3.5); Glucose 94 mg/dL (83-110); Potassium 3.9 mmol/L (3.5-5.1); Protein, Total 6.1 g/dL (5.8-8.1); Salicylate Less than 8.0 mg/dL (15.0-30.0); Sodium 139 mmol/L (136-145)
[2021-06-21 22:15] LABS: SARS-CoV-2 NAA Rapid Test DETECTED (NotDetected)
[2021-06-22] MEDS ORDERED: Acetaminophen 325 MG TAB PO PRN (00:44)
[2021-06-22] MEDS ORDERED: Ondansetron PF 4 MG/2 ML Vial IVP PRN (00:44)
[2021-06-22 01:00] VITALS: BMI 26.5
[2021-06-22 06:21] LABS: #Eosinphils 0.2 thou/uL (0.0-0.7); #Lymphocytes 1.8 thou/uL (1.20-3.40); #Monocytes 0.6 thou/uL (0.11-0.59); #Neutrophils 4.1 thou/uL (1.40-6.50); %Basophils 0.2 % (0.0-1.0); %Eosinophils 3.3 % (0.0-10.0); %Lymphocytes 27.2 % (21.0-51.0); %Monocytes 8.4 % (0.0-10.0); %Neutrophils 60.9 % (42.0-75.0); Hemoglobin 12.3 g/dL (14.0-18.0); Mean Corpuscular HGB CONC 31.3 g/dL (32.0-36.0); Mean Corpuscular Hemoglobin 29.3 pg (27.0-31.0); Mean Corpuscular Volume 93.5 fL (78.0-98.0); Mean Platelet Volume 9.3 fL (7.4-10.4); Platelet Count 244 thou/uL (130-400); RBC Distribution Width 15.7 % (11.5-14.5); Red Blood Cell (RBC) Count 4.21 mill/uL (4.70-6.10); White Blood Cell (WBC) Count 6.7 thou/uL (4.8-10.8)
[2021-06-22 06:30] LABS: Anion Gap 14 mmol/L (10-20); BUN (Urea Nitrogen) 14 mg/dL (8.4-25.7); Calc. Creatinine Clearance 94 mL/min (70-130); Calcium 9.4 mg/dL (7.8-10.44); Carbon Dioxide 22 mmol/L (23-31); Glucose 86 mg/dL (83-110); Potassium 3.9 mmol/L (3.5-5.1)
[2021-06-22] MEDS: cefTRIAXone\\ROCEPHIN 1 GM in Sodium Chloride 0.9% 100 ML IVPB SCH (06:36)
[2021-06-22 06:37] LABS: Troponin I 0.014 ng/mL (< 0.028)
[2021-06-22 07:35] LABS: Chloride 110 mmol/L (98-107); Sodium 142 mmol/L (136-145)
[2021-06-22 07:45] LABS: Troponin I 0.012 ng/mL (< 0.028)
[2021-06-22] MEDS ORDERED: hydrALAZINE 20 MG/ML VIAL SLOW IVP PRN (10:37)
[2021-06-22] MEDS: Apixaban 5 MG TAB PO SCH ×2 (10:54→21:38)
[2021-06-22] MEDS ORDERED: Digoxin 0.5 MG/2 ML AMP SLOW IVP SCH (18:15)
[2021-06-22] MEDS: guaiFENesin ER 600 MG TAB PO SCH (21:37)
[2021-06-22] MEDS: Mometasone 100 MCG/PUFF (1 INHALER) INH SCH (21:38)
[2021-06-22] MEDS: Metoprolol Tartrate 100 MG TAB PO SCH (21:38)
[2021-06-22] MEDS: Atorvastatin Calcium 10 MG TAB PO SCH (21:38)
[2021-06-23] MEDS: cefTRIAXone\\ROCEPHIN 1 GM in Sodium Chloride 0.9% 100 ML IVPB SCH (04:00)
[2021-06-23 08:22] LABS: #Eosinphils 0.1 thou/uL (0.0-0.7); #Lymphocytes 2.2 thou/uL (1.20-3.40); #Neutrophils 4.8 thou/uL (1.40-6.50); %Basophils 0.2 % (0.0-1.0); %Eosinophils 1.3 % (0.0-10.0); %Lymphocytes 27.4 % (21.0-51.0); %Monocytes 12.2 % (0.0-10.0); %Neutrophils 58.9 % (42.0-75.0); Hemoglobin 14.9 g/dL (14.0-18.0); Mean Corpuscular HGB CONC 32.5 g/dL (32.0-36.0); Mean Corpuscular Hemoglobin 30.1 pg (27.0-31.0); Mean Corpuscular Volume 92.6 fL (78.0-98.0); Mean Platelet Volume 10.1 fL (7.4-10.4); Platelet Count 148 thou/uL (130-400); RBC Distribution Width 15.7 % (11.5-14.5); Red Blood Cell (RBC) Count 4.95 mill/uL (4.70-6.10); White Blood Cell (WBC) Count 8.1 thou/uL (4.8-10.8)
[2021-06-23] MEDS: Potassium Chloride 20 MEQ TAB PO SCH (08:52)
[2021-06-23] MEDS: guaiFENesin ER 600 MG TAB PO SCH ×2 (08:52→22:07)
[2021-06-23] MEDS: Aspirin Chewable 81 MG TAB PO SCH (08:52)
[2021-06-23] MEDS: Folic Acid 1 MG TAB PO SCH (08:52)
[2021-06-23] MEDS: Apixaban 5 MG TAB PO SCH ×2 (08:52→22:13)
[2021-06-23] MEDS: Lisinopril 20 MG TAB PO SCH (08:52)
[2021-06-23] MEDS: Metoprolol Tartrate 100 MG TAB PO SCH ×2 (08:52→22:13)
[2021-06-23] MEDS: Finasteride 5 MG TAB PO SCH (08:53)
[2021-06-23] MEDS: Mometasone 100 MCG/PUFF (1 INHALER) INH SCH ×2 (08:53→22:14)
[2021-06-23 10:33] LABS: Anion Gap 16 mmol/L (10-20); BUN (Urea Nitrogen) 12 mg/dL (8.4-25.7); Calc. Creatinine Clearance 98 mL/min (70-130); Calcium 9.7 mg/dL (7.8-10.44); Carbon Dioxide 19 mmol/L (23-31); Chloride 107 mmol/L (98-107); Glucose 102 mg/dL (83-110); Potassium 3.9 mmol/L (3.5-5.1); Sodium 138 mmol/L (136-145)
[2021-06-23] MEDS: Cefuroxime Axetil 250 MG TAB PO SCH (22:07)
[2021-06-23] MEDS: Atorvastatin Calcium 10 MG TAB PO SCH (22:13)
[2021-06-23] MEDS ORDERED: cefTRIAXone\\ROCEPHIN 1 GM in Sodium Chloride 0.9% 100 ML IVPB SCH (22:15)
[2021-06-24] MEDS: Mometasone 100 MCG/PUFF (1 INHALER) INH SCH (07:58)
[2021-06-24] MEDS: Folic Acid 1 MG TAB PO SCH (08:18)
[2021-06-24] MEDS: Cefuroxime Axetil 250 MG TAB PO SCH (08:19)
[2021-06-24] MEDS: Aspirin Chewable 81 MG TAB PO SCH (08:19)
[2021-06-24] MEDS: guaiFENesin ER 600 MG TAB PO SCH (08:20)
[2021-06-24] MEDS: Apixaban 5 MG TAB PO SCH (08:20)
[2021-06-24] MEDS: Metoprolol Tartrate 100 MG TAB PO SCH (08:20)
[2021-06-24] MEDS: Lisinopril 20 MG TAB PO SCH (08:20)
[2021-06-24] MEDS: Finasteride 5 MG TAB PO SCH (08:20)
[2021-06-24] MEDS: Potassium Chloride 20 MEQ TAB PO SCH (08:21)
[2021-06-24 11:40] VITALS: BP 130/80; TEMP 98
[2021-06-24 13:03] LABS: #Eosinphils 0.1 thou/uL (0.0-0.7); #Lymphocytes 1.3 thou/uL (1.20-3.40); #Monocytes 0.5 thou/uL (0.11-0.59); #Neutrophils 5.2 thou/uL (1.40-6.50); %Basophils 0.1 % (0.0-1.0); %Lymphocytes 18.5 % (21.0-51.0); %Monocytes 6.9 % (0.0-10.0); %Neutrophils 72.5 % (42.0-75.0); Hemoglobin 13.8 g/dL (14.0-18.0); Mean Corpuscular HGB CONC 31.9 g/dL (32.0-36.0); Mean Corpuscular Hemoglobin 29.8 pg (27.0-31.0); Mean Corpuscular Volume 93.4 fL (78.0-98.0); Mean Platelet Volume 8.9 fL (7.4-10.4); Platelet Count 238 thou/uL (130-400); RBC Distribution Width 15.5 % (11.5-14.5); Red Blood Cell (RBC) Count 4.62 mill/uL (4.70-6.10); White Blood Cell (WBC) Count 7.2 thou/uL (4.8-10.8)
[2021-06-24 13:23] LABS: Anion Gap 8 mmol/L (10-20); BUN (Urea Nitrogen) 17 mg/dL (8.4-25.7); Calc. Creatinine Clearance 92 mL/min (70-130); Calcium 9.7 mg/dL (7.8-10.44); Carbon Dioxide 29 mmol/L (23-31); Chloride 106 mmol/L (98-107); Glucose 122 mg/dL (83-110); Potassium 3.6 mmol/L (3.5-5.1); Sodium 139 mmol/L (136-145)
== END 2021-06-24 17:15 | DRG 177 ==
LOC: ERS 20:58 → 2SW 22:55 → OBSVTOIN 06-22 13:35
PROVIDERS: ADMIT Internal Medicine; ATTEND Physician Assistant Medical
PROC: 8E0ZXY6 Isolation (ICD-10-PCS; principal; 2021-06-22)
DX: U07.1 COVID-19 (principal); G93.41 Metabolic encephalopathy; I50.32 Chronic diastolic (congestive) heart failure; I13.0 Hypertensive heart and chronic kidney disease with heart failure and stage 1 through stage 4 chronic kidney disease, or unspecified chronic kidney disease; I25.10 Atherosclerotic heart disease of native coronary artery without angina pectoris; E78.5 Hyperlipidemia, unspecified; N18.9 Chronic kidney disease, unspecified; N40.0 Benign prostatic hyperplasia without lower urinary tract symptoms; F03.90 Unspecified dementia, unspecified severity, without behavioral disturbance, psychotic disturbance, mood disturbance, and anxiety; I48.91 Unspecified atrial fibrillation; Z87.440 Personal history of urinary (tract) infections; Z79.899 Other long term (current) drug therapy; Z79.82 Long term (current) use of aspirin; Z79.01 Long term (current) use of anticoagulants; Z95.5 Presence of coronary angioplasty implant and graft; Z90.49 Acquired absence of other specified parts of digestive tract; Z83.3 Family history of diabetes mellitus
CPT/HCPCS: 36415; 36416; 51702; 70450; 71045; 80048; 80053; 80306; 80307; 81003; 81015; 82140; 83605; 83880; 84443; 84484; 85025; 85610; 87086; 93005; 94760; 96374; 96375; G0378; J0696; J1160; J2310; J3490; U0002

== ENCOUNTER 2021-09-06 08:23 | Inpatient (IN) | payer MEDICARE, BC ==
[2021-09-06] MEDS ORDERED: cefTRIAXone\\ROCEPHIN 2 GM VIAL ONE (08:48)
[2021-09-06 09:19] LABS: #Eosinphils 0.1 thou/uL (0.0-0.7); #Lymphocytes 1.4 thou/uL (1.20-3.40); #Monocytes 0.5 thou/uL (0.11-0.59); %Eosinophils 1.5 % (0.0-10.0); %Lymphocytes 20.3 % (21.0-51.0); %Monocytes 6.5 % (0.0-10.0); %Neutrophils 71.8 % (42.0-75.0); Hemoglobin 13.8 g/dL (14.0-18.0); Mean Corpuscular HGB CONC 31.6 g/dL (32.0-36.0); Mean Corpuscular Hemoglobin 29.3 pg (27.0-31.0); Mean Corpuscular Volume 92.8 fL (78.0-98.0); Mean Platelet Volume 9.4 fL (7.4-10.4); Platelet Count 255 thou/uL (130-400); RBC Distribution Width 14.4 % (11.5-14.5)
[2021-09-06 09:31] LABS: INR-International Normal Ratio 1.5; PTT 39.9 sec (22.9-36.1)
[2021-09-06] MEDS ORDERED: Ondansetron PF 4 MG/2 ML Vial ONE (09:40)
[2021-09-06 09:43] LABS: ALT (SGPT) 11 U/L (8-55); AST (SGOT) 12 U/L (5-34); Albumin 3.8 g/dL (3.4-4.8); Alkaline Phosphatase 105 U/L (40-110); Anion Gap 13 mmol/L (10-20); BUN (Urea Nitrogen) 18 mg/dL (8.4-25.7); Bilirubin, Total 0.6 mg/dL (0.2-1.2); CK (CPK) 19 U/L (30-200); Calc. Creatinine Clearance 0 mL/min (70-130); Calcium 10.1 mg/dL (7.8-10.44); Carbon Dioxide 24 mmol/L (23-31); Chloride 105 mmol/L (98-107); Globulin 4.1 g/dL (2.4-3.5); Glucose 136 mg/dL (83-110); Potassium 3.5 mmol/L (3.5-5.1); Protein, Total 7.9 g/dL (5.8-8.1); Sodium 138 mmol/L (136-145)
[2021-09-06 11:09] LABS: Bacteria/HPF 4+ HPF (None Seen); Bilirubin Negative (Negative); Blood, Urine Negative (Negative); Clarity Clear (Clear); Glucose, Urine (Dipstick) Normal (Negative); Ketone, Urine Negative (Negative); Leukocyte 75 Leu/uL (Negative); Nitrite Negative (Negative); Protein, Urine (Dipstick) 50 mg/dL (Neg-Trace); RBC/HPF 0-3 HPF (0-3); Specific Gravity, Urine 1.018 (1.002-1.036); Squamous Epithelial 0-3 HPF (0-3); Urobilinogen Normal mg/dL (Less than 2); pH, Urine 6.5 (5.0-9.0)
[2021-09-06] MEDS ORDERED: guaiFENesin 200 MG TAB PO PRN (12:29)
[2021-09-06] MEDS ORDERED: Albuterol Sulfate 2.5 mg/3 ml Neb NEB PRN (12:30)
[2021-09-06] MEDS ORDERED: Ondansetron PF 4 MG/2 ML Vial IVP PRN (12:32)
[2021-09-06] MEDS ORDERED: Ondansetron ODT 4 MG TAB PO PRN (12:32)
[2021-09-06] MEDS ORDERED: Acetaminophen 325 MG TAB PO PRN (12:32)
[2021-09-06 12:52] LABS: SARS-CoV-2 NAA Rapid Test Not Detected (NotDetected)
[2021-09-07] MEDS ORDERED: Budesonide 0.5 MG/2 ML NEB NEB PRN (07:27)
[2021-09-07] MEDS ORDERED: guaiFENesin ER 600 MG TAB PO PRN (07:52)
[2021-09-07 08:04] LABS: #Eosinphils 0.1 thou/uL (0.0-0.7); #Monocytes 0.5 thou/uL (0.11-0.59); #Neutrophils 3.4 thou/uL (1.40-6.50); %Basophils 0.4 % (0.0-1.0); %Eosinophils 1.5 % (0.0-10.0); %Lymphocytes 33.6 % (21.0-51.0); %Neutrophils 56.6 % (42.0-75.0); Hemoglobin 14.4 g/dL (14.0-18.0); Mean Corpuscular HGB CONC 31.9 g/dL (32.0-36.0); Mean Corpuscular Hemoglobin 29.6 pg (27.0-31.0); Platelet Count 188 thou/uL (130-400); RBC Distribution Width 14.1 % (11.5-14.5); Red Blood Cell (RBC) Count 4.87 mill/uL (4.70-6.10); White Blood Cell (WBC) Count 5.9 thou/uL (4.8-10.8)
[2021-09-07 08:17] LABS: Anion Gap 15 mmol/L (10-20); BUN (Urea Nitrogen) 15 mg/dL (8.4-25.7); Calc. Creatinine Clearance 73 mL/min (70-130); Calcium 9.7 mg/dL (7.8-10.44); Carbon Dioxide 22 mmol/L (23-31); Chloride 108 mmol/L (98-107); Glucose 124 mg/dL (83-110); Potassium 3.9 mmol/L (3.5-5.1); Sodium 141 mmol/L (136-145)
[2021-09-07] MEDS: Finasteride 5 MG TAB PO SCH (08:34)
[2021-09-07] MEDS: Apixaban 5 MG TAB PO SCH ×2 (08:34→21:42)
[2021-09-07] MEDS: cefTRIAXone\\ROCEPHIN 1 GM in Sodium Chloride 0.9% 100 ML IVPB SCH (08:34)
[2021-09-07] MEDS: Aspirin Chewable 81 MG TAB PO SCH (08:34)
[2021-09-07] MEDS: Potassium Chloride 20 MEQ TAB PO SCH (08:34)
[2021-09-07] MEDS: Metoprolol Tartrate 100 MG TAB PO SCH ×2 (08:34→21:42)
[2021-09-07 13:16] VITALS: BMI 25.1
[2021-09-08 06:53] LABS: #Eosinphils 0.2 thou/uL (0.0-0.7); #Lymphocytes 1.7 thou/uL (1.20-3.40); #Monocytes 0.5 thou/uL (0.11-0.59); #Neutrophils 4.2 thou/uL (1.40-6.50); %Basophils 0.2 % (0.0-1.0); %Eosinophils 3.3 % (0.0-10.0); %Lymphocytes 25.4 % (21.0-51.0); %Neutrophils 64.1 % (42.0-75.0); Hemoglobin 14.1 g/dL (14.0-18.0); Mean Corpuscular Hemoglobin 30.3 pg (27.0-31.0); Mean Corpuscular Volume 94.7 fL (78.0-98.0); Mean Platelet Volume 10.4 fL (7.4-10.4); Platelet Count 206 thou/uL (130-400); RBC Distribution Width 14.5 % (11.5-14.5); Red Blood Cell (RBC) Count 4.64 mill/uL (4.70-6.10); White Blood Cell (WBC) Count 6.6 thou/uL (4.8-10.8)
[2021-09-08 07:27] LABS: Anion Gap 16 mmol/L (10-20); BUN (Urea Nitrogen) 13 mg/dL (8.4-25.7); Calc. Creatinine Clearance 77 mL/min (70-130); Calcium 9.9 mg/dL (7.8-10.44); Carbon Dioxide 18 mmol/L (23-31); Chloride 109 mmol/L (98-107); Glucose 125 mg/dL (83-110); Potassium 4.4 mmol/L (3.5-5.1); Sodium 139 mmol/L (136-145)
[2021-09-08] MEDS: Aspirin Chewable 81 MG TAB PO SCH (08:22)
[2021-09-08] MEDS: Potassium Chloride 20 MEQ TAB PO SCH (08:22)
[2021-09-08] MEDS: Metoprolol Tartrate 100 MG TAB PO SCH ×2 (08:22→20:12)
[2021-09-08] MEDS: Finasteride 5 MG TAB PO SCH (08:23)
[2021-09-08] MEDS: cefTRIAXone\\ROCEPHIN 1 GM in Sodium Chloride 0.9% 100 ML IVPB SCH (08:23)
[2021-09-08] MEDS: Apixaban 5 MG TAB PO SCH ×2 (08:23→20:12)
[2021-09-09 06:29] LABS: #Eosinphils 0.3 thou/uL (0.0-0.7); #Lymphocytes 1.5 thou/uL (1.20-3.40); #Monocytes 0.5 thou/uL (0.11-0.59); #Neutrophils 3.9 thou/uL (1.40-6.50); %Basophils 0.1 % (0.0-1.0); %Eosinophils 4.3 % (0.0-10.0); %Lymphocytes 24.9 % (21.0-51.0); %Monocytes 7.4 % (0.0-10.0); %Neutrophils 63.3 % (42.0-75.0); Hemoglobin 12.5 g/dL (14.0-18.0); Mean Corpuscular HGB CONC 32.2 g/dL (32.0-36.0); Mean Corpuscular Volume 93.2 fL (78.0-98.0); Mean Platelet Volume 9.3 fL (7.4-10.4); Platelet Count 232 thou/uL (130-400); Red Blood Cell (RBC) Count 4.16 mill/uL (4.70-6.10); White Blood Cell (WBC) Count 6.2 thou/uL (4.8-10.8)
[2021-09-09 06:49] LABS: Anion Gap 15 mmol/L (10-20); BUN (Urea Nitrogen) 13 mg/dL (8.4-25.7); Calc. Creatinine Clearance 86 mL/min (70-130); Calcium 9.5 mg/dL (7.8-10.44); Carbon Dioxide 20 mmol/L (23-31); Chloride 108 mmol/L (98-107); Glucose 114 mg/dL (83-110); Potassium 3.6 mmol/L (3.5-5.1); Sodium 139 mmol/L (136-145)
[2021-09-09] MEDS: Apixaban 5 MG TAB PO SCH ×2 (08:02→20:36)
[2021-09-09] MEDS: Finasteride 5 MG TAB PO SCH (08:02)
[2021-09-09] MEDS: Metoprolol Tartrate 100 MG TAB PO SCH ×2 (08:02→20:36)
[2021-09-09] MEDS: Aspirin Chewable 81 MG TAB PO SCH (08:02)
[2021-09-09] MEDS: Potassium Chloride 20 MEQ TAB PO SCH (08:02)
[2021-09-09] MEDS: cefTRIAXone\\ROCEPHIN 1 GM in Sodium Chloride 0.9% 100 ML IVPB SCH (08:03)
[2021-09-10] MEDS: Finasteride 5 MG TAB PO SCH (08:54)
[2021-09-10] MEDS: Apixaban 5 MG TAB PO SCH ×2 (08:54→20:48)
[2021-09-10] MEDS: Metoprolol Tartrate 100 MG TAB PO SCH ×2 (08:54→20:48)
[2021-09-10] MEDS: Potassium Chloride 20 MEQ TAB PO SCH (08:54)
[2021-09-10] MEDS: Aspirin Chewable 81 MG TAB PO SCH (08:54)
[2021-09-10] MEDS: cefTRIAXone\\ROCEPHIN 1 GM in Sodium Chloride 0.9% 100 ML IVPB SCH (08:54)
[2021-09-11] MEDS: cefTRIAXone\\ROCEPHIN 1 GM in Sodium Chloride 0.9% 100 ML IVPB SCH (08:18)
[2021-09-11] MEDS: Finasteride 5 MG TAB PO SCH (08:19)
[2021-09-11] MEDS: Aspirin Chewable 81 MG TAB PO SCH (08:19)
[2021-09-11] MEDS: Potassium Chloride 20 MEQ TAB PO SCH (08:19)
[2021-09-11] MEDS: Apixaban 5 MG TAB PO SCH (08:19)
[2021-09-11] MEDS: Metoprolol Tartrate 100 MG TAB PO SCH (08:19)
[2021-09-11 10:58] VITALS: BP 127/84; TEMP 97.7
== END 2021-09-11 11:24 | disposition home health service (06) | DRG 690 ==
LOC: ERS 08:23 → T4-B 15:01
PROVIDERS: ADMIT Internal Medicine; ATTEND Internal Medicine
DX: N39.0 Urinary tract infection, site not specified (principal); I50.32 Chronic diastolic (congestive) heart failure; E44.1 Mild protein-calorie malnutrition; I11.0 Hypertensive heart disease with heart failure; E78.5 Hyperlipidemia, unspecified; E87.70 Fluid overload, unspecified; I35.0 Nonrheumatic aortic (valve) stenosis; I48.0 Paroxysmal atrial fibrillation; Z20.822 Contact with and (suspected) exposure to COVID-19; R73.9 Hyperglycemia, unspecified; I25.10 Atherosclerotic heart disease of native coronary artery without angina pectoris; N40.0 Benign prostatic hyperplasia without lower urinary tract symptoms; Z79.82 Long term (current) use of aspirin; Z79.899 Other long term (current) drug therapy; Z90.49 Acquired absence of other specified parts of digestive tract; Z98.890 Other specified postprocedural states; Z99.3 Dependence on wheelchair; Z68.25 Body mass index [BMI] 25.0-25.9, adult
CPT/HCPCS: 36415; 36416; 71045; 80048; 80053; 81003; 81015; 82550; 83605; 83735; 83880; 84484; 85025; 85610; 85730; 87040; 87077; 87086; 87149; 94640; 94760; J0696; J2405; J3490; J7620; Q0162

== ENCOUNTER 2021-09-14 13:55 | Emergency (ER) | payer MEDICARE, BC ==
[2021-09-14 14:39] LABS: #Eosinphils 0.1 thou/uL (0.0-0.7); #Lymphocytes 2.1 thou/uL (1.20-3.40); #Monocytes 0.5 thou/uL (0.11-0.59); #Neutrophils 4.9 thou/uL (1.40-6.50); %Basophils 0.1 % (0.0-1.0); %Eosinophils 1.7 % (0.0-10.0); %Lymphocytes 27.6 % (21.0-51.0); %Neutrophils 63.5 % (42.0-75.0); Hemoglobin 13.7 g/dL (14.0-18.0); Mean Corpuscular HGB CONC 31.1 g/dL (32.0-36.0); Mean Corpuscular Hemoglobin 29.2 pg (27.0-31.0); Mean Corpuscular Volume 94.2 fL (78.0-98.0); Mean Platelet Volume 9.1 fL (7.4-10.4); Platelet Count 252 thou/uL (130-400); RBC Distribution Width 14.2 % (11.5-14.5); White Blood Cell (WBC) Count 7.7 thou/uL (4.8-10.8)
[2021-09-14 14:51] LABS: ALT (SGPT) 19 U/L (8-55); AST (SGOT) 20 U/L (5-34); Albumin 3.8 g/dL (3.4-4.8); Alkaline Phosphatase 116 U/L (40-110); Anion Gap 15 mmol/L (10-20); BUN (Urea Nitrogen) 16 mg/dL (8.4-25.7); Bilirubin, Total 0.5 mg/dL (0.2-1.2); Calc. Creatinine Clearance 0 mL/min (70-130); Carbon Dioxide 19 mmol/L (23-31); Chloride 109 mmol/L (98-107); Globulin 4.2 g/dL (2.4-3.5); Glucose 97 mg/dL (83-110); Potassium 4.2 mmol/L (3.5-5.1); Sodium 139 mmol/L (136-145)
[2021-09-14 15:15] LABS: INR-International Normal Ratio 1.6
[2021-09-14 15:18] LABS: PTT 38.9 sec (22.9-36.1)
[2021-09-14 16:02] LABS: Bilirubin Negative (Negative); Blood, Urine Negative (Negative); Clarity Clear (Clear); Glucose, Urine (Dipstick) Normal (Negative); Ketone, Urine Trace mg/dL (Negative); Leukocyte Negative Leu/uL (Negative); Nitrite Negative (Negative); Protein, Urine (Dipstick) 10 mg/dL (Neg-Trace); Specific Gravity, Urine 1.012 (1.002-1.036); Urobilinogen Normal mg/dL (Less than 2)
== END 2021-09-14 18:00 | disposition home or self-care (01) ==
LOC: ERS 13:55
DX: R41.0 Disorientation, unspecified (principal); R29.703 NIHSS score 3; I48.92 Unspecified atrial flutter; I11.0 Hypertensive heart disease with heart failure; I50.9 Heart failure, unspecified; D64.9 Anemia, unspecified; I25.10 Atherosclerotic heart disease of native coronary artery without angina pectoris; M10.9 Gout, unspecified; E78.5 Hyperlipidemia, unspecified; E78.00 Pure hypercholesterolemia, unspecified; Z79.82 Long term (current) use of aspirin; Z79.899 Other long term (current) drug therapy
CPT/HCPCS: 36415; 36416; 70450; 80053; 81003; 83605; 84484; 85025; 85610; 85730; 93005; 94760

== ENCOUNTER 2021-09-15 15:07 | Inpatient (IN) | payer MEDICARE, BC ==
[2021-09-15 17:04] LABS: #Eosinphils 0.1 thou/uL (0.0-0.7); #Lymphocytes 1.6 thou/uL (1.20-3.40); #Monocytes 0.5 thou/uL (0.11-0.59); #Neutrophils 3.7 thou/uL (1.40-6.50); %Basophils 0.3 % (0.0-1.0); %Eosinophils 2.5 % (0.0-10.0); %Lymphocytes 26.8 % (21.0-51.0); %Monocytes 7.6 % (0.0-10.0); %Neutrophils 62.8 % (42.0-75.0); Hemoglobin 13.5 g/dL (14.0-18.0); Mean Corpuscular HGB CONC 30.7 g/dL (32.0-36.0); Mean Corpuscular Hemoglobin 29.3 pg (27.0-31.0); Mean Corpuscular Volume 95.4 fL (78.0-98.0); Mean Platelet Volume 9.1 fL (7.4-10.4); Platelet Count 255 thou/uL (130-400); RBC Distribution Width 14.4 % (11.5-14.5); Red Blood Cell (RBC) Count 4.61 mill/uL (4.70-6.10); White Blood Cell (WBC) Count 5.9 thou/uL (4.8-10.8)
[2021-09-15 17:28] LABS: ALT (SGPT) 15 U/L (8-55); AST (SGOT) 14 U/L (5-34); Albumin 3.7 g/dL (3.4-4.8); Alkaline Phosphatase 104 U/L (40-110); Anion Gap 13 mmol/L (10-20); BUN (Urea Nitrogen) 16 mg/dL (8.4-25.7); Bilirubin, Total 0.5 mg/dL (0.2-1.2); Calc. Creatinine Clearance 0 mL/min (70-130); Calcium 10.1 mg/dL (7.8-10.44); Carbon Dioxide 24 mmol/L (23-31); Chloride 107 mmol/L (98-107); Glucose 109 mg/dL (83-110); Potassium 4.4 mmol/L (3.5-5.1); Protein, Total 7.7 g/dL (5.8-8.1); Sodium 140 mmol/L (136-145)
[2021-09-15 18:44] LABS: Amphetamine Not Detected (NotDetected); Bacteria/HPF None Seen HPF (None Seen); Barbiturates Screen Not Detected (NotDetected); Benzodiazepine Screen Not Detected (NotDetected); Bilirubin Negative (Negative); Blood, Urine Negative (Negative); Clarity Clear (Clear); Cocaine Metabolite Screen Not Detected (NotDetected); Glucose, Urine (Dipstick) Normal (Negative); Ketone, Urine Negative (Negative); Leukocyte 75 Leu/uL (Negative); Methadone Not Detected (NotDetected); Methamphetamine Not Detected (NotDetected); Nitrite Negative (Negative); Opiate Screen Not Detected (NotDetected); Oxycodone Screen Not Detected (NotDetected); Phencyclidine (PCP) Not Detected (NotDetected); Protein, Urine (Dipstick) 30 mg/dL (Neg-Trace); RBC/HPF 0-3 HPF (0-3); Specific Gravity, Urine 1.023 (1.002-1.036); Squamous Epithelial 0-3 HPF (0-3); THC/Cannabinoid Screen Not Detected (NotDetected); Tricyclic Screen Not Detected (NotDetected); Urobilinogen Normal mg/dL (Less than 2)
[2021-09-15] MEDS ORDERED: Ondansetron PF 4 MG/2 ML Vial IVP PRN (19:09)
[2021-09-15] MEDS ORDERED: Acetaminophen 650 MG Suppository PR PRN (19:09)
[2021-09-15] MEDS ORDERED: Senokot S 8.6-50 MG TAB PO PRN (19:09)
[2021-09-15] MEDS ORDERED: Acetaminophen 325 MG TAB PO PRN (19:09)
[2021-09-15] MEDS ORDERED: Ondansetron ODT 4 MG TAB PO PRN (19:09)
[2021-09-15] MEDS ORDERED: hydrALAZINE 20 MG/ML VIAL SLOW IVP PRN (19:53)
[2021-09-15 20:41] VITALS: BMI 24.5
[2021-09-15] MEDS ORDERED: Aspirin 300 MG Suppository PR SCH (20:45)
[2021-09-15] MEDS ORDERED: Enoxaparin Sodium 40 MG/0.4 ML SYRINGE SC SCH (21:00)
[2021-09-16 04:21] LABS: #Eosinphils 0.1 thou/uL (0.0-0.7); #Lymphocytes 1.8 thou/uL (1.20-3.40); #Monocytes 0.4 thou/uL (0.11-0.59); #Neutrophils 3.2 thou/uL (1.40-6.50); %Basophils 0.3 % (0.0-1.0); %Eosinophils 2.6 % (0.0-10.0); %Lymphocytes 32.3 % (21.0-51.0); %Monocytes 7.7 % (0.0-10.0); %Neutrophils 57.1 % (42.0-75.0); Hemoglobin 12.7 g/dL (14.0-18.0); Mean Corpuscular HGB CONC 31.6 g/dL (32.0-36.0); Mean Corpuscular Hemoglobin 29.5 pg (27.0-31.0); Mean Corpuscular Volume 93.1 fL (78.0-98.0); Mean Platelet Volume 9.2 fL (7.4-10.4); Platelet Count 231 thou/uL (130-400); RBC Distribution Width 13.9 % (11.5-14.5); Red Blood Cell (RBC) Count 4.31 mill/uL (4.70-6.10); White Blood Cell (WBC) Count 5.5 thou/uL (4.8-10.8)
[2021-09-16 04:47] LABS: Anion Gap 11 mmol/L (10-20); BUN (Urea Nitrogen) 14 mg/dL (8.4-25.7); Calc. Creatinine Clearance 83 mL/min (70-130); Calcium 9.6 mg/dL (7.8-10.44); Carbon Dioxide 24 mmol/L (23-31); Chloride 108 mmol/L (98-107); Glucose 108 mg/dL (83-110); Potassium 3.6 mmol/L (3.5-5.1); Sodium 139 mmol/L (136-145)
[2021-09-16 10:36] LABS: Lactic Acid 1.5 mmol/L (0.5-2.2)
[2021-09-16 12:18] LABS: SARS-CoV-2 PCR by NAA Not Detected (NotDetected)
[2021-09-16] MEDS ORDERED: Budesonide 0.5 MG/2 ML NEB NEB PRN (14:21)
[2021-09-16] MEDS ORDERED: guaiFENesin ER 600 MG TAB PO PRN (14:43)
[2021-09-16] MEDS ORDERED: Acetaminophen 325 MG TAB PO PRN (14:46)
[2021-09-16] MEDS ORDERED: Albuterol Sulfate 2.5 mg/3 ml Neb NEB PRN (14:48)
[2021-09-16 16:57] LABS: Free T4 (Free Thyroxine) 1.08 ng/dL (0.70-1.48)
[2021-09-16] MEDS: Apixaban 5 MG TAB PO SCH (21:38)
[2021-09-16] MEDS: Metoprolol Tartrate 100 MG TAB PO SCH (21:39)
[2021-09-16] MEDS: Atorvastatin Calcium 10 MG TAB PO SCH (21:39)
[2021-09-17 02:13] LABS: Bilirubin Negative (Negative); Blood, Urine Negative (Negative); Clarity Clear (Clear); Glucose, Urine (Dipstick) Normal (Negative); Ketone, Urine Negative (Negative); Leukocyte Negative Leu/uL (Negative); Nitrite Negative (Negative); Protein, Urine (Dipstick) 30 mg/dL (Neg-Trace); RBC/HPF 0-3 HPF (0-3); Specific Gravity, Urine 1.021 (1.002-1.036); Squamous Epithelial 0-3 HPF (0-3); Urobilinogen 3 mg/dL (Less than 2); WBC/HPF 0-3 HPF (0-3); pH, Urine 6.5 (5.0-9.0)
[2021-09-17 02:15] LABS: Bacteria/HPF Rare-Few HPF (None Seen)
[2021-09-17 07:30] LABS: #Eosinphils 0.2 thou/uL (0.0-0.7); #Lymphocytes 1.6 thou/uL (1.20-3.40); #Monocytes 0.5 thou/uL (0.11-0.59); #Neutrophils 3.1 thou/uL (1.40-6.50); %Basophils 0.4 % (0.0-1.0); %Lymphocytes 29.1 % (21.0-51.0); %Monocytes 9.4 % (0.0-10.0); %Neutrophils 58.2 % (42.0-75.0); Hemoglobin 12.9 g/dL (14.0-18.0); Mean Corpuscular HGB CONC 32.9 g/dL (32.0-36.0); Mean Corpuscular Hemoglobin 30.2 pg (27.0-31.0); Mean Corpuscular Volume 91.7 fL (78.0-98.0); Mean Platelet Volume 9.6 fL (7.4-10.4); Platelet Count 215 thou/uL (130-400); Red Blood Cell (RBC) Count 4.26 mill/uL (4.70-6.10); White Blood Cell (WBC) Count 5.4 thou/uL (4.8-10.8)
[2021-09-17 07:32] LABS: Anion Gap 13 mmol/L (10-20); BUN (Urea Nitrogen) 16 mg/dL (8.4-25.7); Calc. Creatinine Clearance 77 mL/min (70-130); Calcium 9.4 mg/dL (7.8-10.44); Carbon Dioxide 19 mmol/L (23-31); Chloride 110 mmol/L (98-107); Glucose 112 mg/dL (83-110); Potassium 4.1 mmol/L (3.5-5.1); Sodium 138 mmol/L (136-145)
[2021-09-17] MEDS: Aspirin Chewable 81 MG TAB PO SCH (08:15)
[2021-09-17] MEDS: Apixaban 5 MG TAB PO SCH ×2 (08:15→19:49)
[2021-09-17] MEDS: Finasteride 5 MG TAB PO SCH (08:15)
[2021-09-17] MEDS: Lisinopril 20 MG TAB PO SCH (08:16)
[2021-09-17] MEDS: Metoprolol Tartrate 100 MG TAB PO SCH ×2 (08:16→19:49)
[2021-09-17] MEDS: Folic Acid 1 MG TAB PO SCH (08:16)
[2021-09-17] MEDS: Atorvastatin Calcium 10 MG TAB PO SCH (19:49)
[2021-09-18] MEDS: Aspirin Chewable 81 MG TAB PO SCH (08:57)
[2021-09-18] MEDS: Apixaban 5 MG TAB PO SCH ×2 (08:57→20:21)
[2021-09-18] MEDS: Lisinopril 20 MG TAB PO SCH (08:58)
[2021-09-18] MEDS: Finasteride 5 MG TAB PO SCH (08:58)
[2021-09-18] MEDS: Folic Acid 1 MG TAB PO SCH (08:58)
[2021-09-18] MEDS: Metoprolol Tartrate 100 MG TAB PO SCH ×2 (08:58→20:21)
[2021-09-18] MEDS: Atorvastatin Calcium 10 MG TAB PO SCH (20:21)
[2021-09-19] MEDS: Folic Acid 1 MG TAB PO SCH (09:17)
[2021-09-19] MEDS: Finasteride 5 MG TAB PO SCH (09:17)
[2021-09-19] MEDS: Lisinopril 20 MG TAB PO SCH (09:17)
[2021-09-19] MEDS: Aspirin Chewable 81 MG TAB PO SCH (09:17)
[2021-09-19] MEDS: Apixaban 5 MG TAB PO SCH ×2 (09:17→20:35)
[2021-09-19] MEDS: Metoprolol Tartrate 100 MG TAB PO SCH ×2 (09:18→20:35)
[2021-09-19] MEDS: Atorvastatin Calcium 10 MG TAB PO SCH (20:35)
[2021-09-20] MEDS: Metoprolol Tartrate 100 MG TAB PO SCH ×2 (10:18→20:09)
[2021-09-20] MEDS: Aspirin Chewable 81 MG TAB PO SCH (10:18)
[2021-09-20] MEDS: Folic Acid 1 MG TAB PO SCH (10:18)
[2021-09-20] MEDS: Finasteride 5 MG TAB PO SCH (10:19)
[2021-09-20] MEDS: Apixaban 5 MG TAB PO SCH ×2 (10:19→20:09)
[2021-09-20] MEDS: Lisinopril 20 MG TAB PO SCH (10:19)
[2021-09-20 19:41] VITALS: BP 125/70; TEMP 98.5
[2021-09-20] MEDS: Atorvastatin Calcium 10 MG TAB PO SCH (20:09)
== END 2021-09-20 20:16 | DRG 392 ==
LOC: ERS 15:07 → 2NO 18:45 → OBSVTOIN 09-16 15:41
PROVIDERS: ADMIT Internal Medicine; ATTEND Internal Medicine
DX: R13.10 Dysphagia, unspecified (principal); I50.32 Chronic diastolic (congestive) heart failure; I48.20 Chronic atrial fibrillation, unspecified; I48.92 Unspecified atrial flutter; T17.928A Food in respiratory tract, part unspecified causing other injury, initial encounter; E53.8 Deficiency of other specified B group vitamins; R53.1 Weakness; R53.83 Other fatigue; Z20.822 Contact with and (suspected) exposure to COVID-19; I11.0 Hypertensive heart disease with heart failure; I35.0 Nonrheumatic aortic (valve) stenosis; N40.0 Benign prostatic hyperplasia without lower urinary tract symptoms; E78.5 Hyperlipidemia, unspecified; I25.10 Atherosclerotic heart disease of native coronary artery without angina pectoris; Z87.440 Personal history of urinary (tract) infections; Z79.82 Long term (current) use of aspirin; Z79.01 Long term (current) use of anticoagulants; Z79.51 Long term (current) use of inhaled steroids; Z79.899 Other long term (current) drug therapy; Z90.49 Acquired absence of other specified parts of digestive tract; Z98.890 Other specified postprocedural states; Z99.3 Dependence on wheelchair; R41.0 Disorientation, unspecified; R29.703 NIHSS score 3; D64.9 Anemia, unspecified; M10.9 Gout, unspecified; E78.00 Pure hypercholesterolemia, unspecified
CPT/HCPCS: 36415; 36416; 70450; 70551; 71045; 80048; 80053; 80306; 81001; 81003; 81015; 82140; 82550; 82607; 83605; 84425; 84439; 84443; 84481; 84484; 85025; 85610; 85730; 93005; 93306; 94760; 96372; G0378; J1650; U0003; U0005

== ENCOUNTER 2021-10-22 20:13 | Emergency (ER) | payer MEDICARE, BC ==
[2021-10-22 20:54] LABS: Actual Bicarbonate (HCO3v) 23 mEq/L (22-28); Analyzer IN Cardio ER; Base Excess -1.2 mEq/L (-2.0 to +3.0); Calcium, Ionized (venous) 1.17 mmol/L (1.16-1.32); Chloride (VBG) 108 mmol/L (98-106); pH (venous) 7.43 (7.32-7.43)
[2021-10-22 21:21] LABS: #Eosinphils 0.2 thou/uL (0.0-0.7); #Lymphocytes 1.4 thou/uL (1.20-3.40); #Monocytes 0.4 thou/uL (0.11-0.59); #Neutrophils 3.4 thou/uL (1.40-6.50); %Basophils 0.3 % (0.0-1.0); %Eosinophils 3.4 % (0.0-10.0); %Lymphocytes 26.7 % (21.0-51.0); %Monocytes 7.2 % (0.0-10.0); %Neutrophils 62.4 % (42.0-75.0); Hemoglobin 11.2 g/dL (14.0-18.0); Mean Corpuscular HGB CONC 31.8 g/dL (32.0-36.0); Mean Corpuscular Hemoglobin 29.9 pg (27.0-31.0); Mean Corpuscular Volume 93.8 fL (78.0-98.0); Mean Platelet Volume 9.2 fL (7.4-10.4); Platelet Count 207 thou/uL (130-400); RBC Distribution Width 15.2 % (11.5-14.5); Red Blood Cell (RBC) Count 3.75 mill/uL (4.70-6.10); White Blood Cell (WBC) Count 5.4 thou/uL (4.8-10.8)
[2021-10-22 21:26] LABS: ALT (SGPT) 21 U/L (8-55); AST (SGOT) 16 U/L (5-34); Albumin 3.1 g/dL (3.4-4.8); Alkaline Phosphatase 101 U/L (40-110); Anion Gap 13 mmol/L (10-20); BUN (Urea Nitrogen) 17 mg/dL (8.4-25.7); Bilirubin, Total 0.5 mg/dL (0.2-1.2); Calc. Creatinine Clearance 0 mL/min (70-130); Calcium 8.5 mg/dL (7.8-10.44); Carbon Dioxide 21 mmol/L (23-31); Chloride 112 mmol/L (98-107); Globulin 3.1 g/dL (2.4-3.5); Glucose 109 mg/dL (83-110); Protein, Total 6.2 g/dL (5.8-8.1); Sodium 142 mmol/L (136-145)
[2021-10-22 23:00] LABS: Bacteria/HPF None Seen HPF (None Seen); Bilirubin Negative (Negative); Blood, Urine Negative (Negative); Clarity Clear (Clear); Glucose, Urine (Dipstick) Normal (Negative); Ketone, Urine Negative (Negative); Leukocyte 25 Leu/uL (Negative); Nitrite Negative (Negative); Protein, Urine (Dipstick) 10 mg/dL (Neg-Trace); RBC/HPF 0-3 HPF (0-3); Specific Gravity, Urine 1.016 (1.002-1.036); Urobilinogen Normal mg/dL (Less than 2); WBC/HPF 0-3 HPF (0-3); pH, Urine 7.5 (5.0-9.0)
== END 2021-10-22 22:38 | disposition home or self-care (01) ==
LOC: ERS 20:13
DX: F03.90 Unspecified dementia, unspecified severity, without behavioral disturbance, psychotic disturbance, mood disturbance, and anxiety (principal); N40.0 Benign prostatic hyperplasia without lower urinary tract symptoms; M10.9 Gout, unspecified; I25.10 Atherosclerotic heart disease of native coronary artery without angina pectoris; E78.5 Hyperlipidemia, unspecified; E78.00 Pure hypercholesterolemia, unspecified; I13.0 Hypertensive heart and chronic kidney disease with heart failure and stage 1 through stage 4 chronic kidney disease, or unspecified chronic kidney disease; N18.9 Chronic kidney disease, unspecified; I50.9 Heart failure, unspecified; Z79.899 Other long term (current) drug therapy; Z79.82 Long term (current) use of aspirin
CPT/HCPCS: 36415; 51701; 70450; 71045; 80053; 81003; 81015; 82805; 83605; 84484; 85025; 87040; 87086; 93005

== ENCOUNTER 2021-11-28 02:54 | Inpatient (IN) | payer MEDICARE, BC ==
[2021-11-28 03:43] LABS: #Eosinphils 0.1 thou/uL (0.0-0.7); #Lymphocytes 1.3 thou/uL (1.20-3.40); #Monocytes 0.6 thou/uL (0.11-0.59); #Neutrophils 4.7 thou/uL (1.40-6.50); %Basophils 0.2 % (0.0-1.0); %Eosinophils 1.4 % (0.0-10.0); %Lymphocytes 18.9 % (21.0-51.0); %Monocytes 8.5 % (0.0-10.0); Hemoglobin 12.1 g/dL (14.0-18.0); Mean Corpuscular HGB CONC 32.4 g/dL (32.0-36.0); Mean Corpuscular Hemoglobin 30.7 pg (27.0-31.0); Mean Platelet Volume 10.2 fL (7.4-10.4); Platelet Count 189 thou/uL (130-400); RBC Distribution Width 14.9 % (11.5-14.5); Red Blood Cell (RBC) Count 3.93 mill/uL (4.70-6.10); White Blood Cell (WBC) Count 6.6 thou/uL (4.8-10.8)
[2021-11-28] MEDS ORDERED: Cefepime 2 GM VIAL ONE (03:51)
[2021-11-28 04:07] LABS: ALT (SGPT) 17 U/L (8-55); AST (SGOT) 18 U/L (5-34); Albumin 3.4 g/dL (3.4-4.8); Alkaline Phosphatase 108 U/L (40-110); Anion Gap 13 mmol/L (10-20); BUN (Urea Nitrogen) 15 mg/dL (8.4-25.7); Bilirubin, Total 0.6 mg/dL (0.2-1.2); Calc. Creatinine Clearance 0 mL/min (70-130); Calcium 9.1 mg/dL (7.8-10.44); Carbon Dioxide 26 mmol/L (23-31); Chloride 109 mmol/L (98-107); Estimated GFR 85; Globulin 3.5 g/dL (2.4-3.5); Glucose 115 mg/dL (83-110); Protein, Total 6.9 g/dL (5.8-8.1); Sodium 144 mmol/L (136-145)
[2021-11-28 04:13] LABS: Bacteria/HPF None Seen HPF (None Seen); Bilirubin Negative (Negative); Blood, Urine Negative (Negative); Clarity Clear (Clear); Glucose, Urine (Dipstick) Normal (Negative); Ketone, Urine Negative (Negative); Leukocyte Negative Leu/uL (Negative); Nitrite Negative (Negative); Protein, Urine (Dipstick) 30 mg/dL (Neg-Trace); RBC/HPF 0-3 HPF (0-3); Specific Gravity, Urine 1.016 (1.002-1.036); Squamous Epithelial 0-3 HPF (0-3); Urobilinogen Normal mg/dL (Less than 2); WBC/HPF 0-3 HPF (0-3)
[2021-11-28 04:39] LABS: SARS-CoV-2 NAA Rapid Test Not Detected (NotDetected)
[2021-11-28] MEDS ORDERED: Acetaminophen 500 MG TAB ONE (04:57)
[2021-11-28] MEDS ORDERED: Vancomycin 1 GM/200 ML BAG ONE (04:57)
[2021-11-28] MEDS ORDERED: Furosemide 20 MG/2 ML VIAL ONE (04:57)
[2021-11-28] MEDS ORDERED: Nitroglycerin 2% Ointment 1 INCH/1 GM Packet ONE (04:57)
[2021-11-28] MEDS ORDERED: Acetaminophen 650 MG Suppository ONE (05:21)
[2021-11-28] MEDS ORDERED: Ondansetron ODT 4 MG TAB PO PRN (05:46)
[2021-11-28] MEDS ORDERED: Acetaminophen 325 MG TAB PO PRN ×2 (05:46→09:18)
[2021-11-28] MEDS ORDERED: Ondansetron PF 4 MG/2 ML Vial IVP PRN (05:46)
[2021-11-28] MEDS ORDERED: Furosemide 40 MG/4 ML VIAL SLOW IVP SCH (06:00)
[2021-11-28 06:24] LABS: Actual Bicarbonate (HCO3a) 27.2 mEq/L (22-28); Analyzer IN Cardio ER; Base Excess (BEa) 3.9 mEq/L (-2.0 to +3.0); CO2 Tension 36.4 mmHg (35.0-45.0); Calcium, Ionized (arterial) 1.21 mmol/L (1.12-1.30); Carboxyhemoglobin (COHb) 0.7 gm% (0.0-3.0); Hemoglobin (Hb) 12.5 g/dL (14.0-18.0); O2 Tension (PaO2), arterial 64.2 mmHg (> 60.0); Potassium - ABG Lab 3.38 mmol/L (3.70-5.30); pH, Arterial 7.49 (7.35-7.45)
[2021-11-28 06:27] LABS: Puncture Site RRA
[2021-11-28 06:30] LABS: Amphetamine Not Detected (NotDetected); Barbiturates Screen Not Detected (NotDetected); Benzodiazepine Screen Not Detected (NotDetected); Cocaine Metabolite Screen Not Detected (NotDetected); Methadone Not Detected (NotDetected); Methamphetamine Not Detected (NotDetected); Opiate Screen Not Detected (NotDetected); Oxycodone Screen Not Detected (NotDetected); Phencyclidine (PCP) Not Detected (NotDetected); THC/Cannabinoid Screen Not Detected (NotDetected); Tricyclic Screen Not Detected (NotDetected)
[2021-11-28] MEDS ORDERED: hydrALAZINE 20 MG/ML VIAL SLOW IVP PRN (07:08)
[2021-11-28 07:40] LABS: Acetaminophen Less than 10.0 mcg/mL (10.0-30.0)
[2021-11-28] MEDS ORDERED: Non-Formulary Item 1 EACH (Albuterol Sulfate Hfa (Or) 200 PUFF Inh) INH PRN (08:28)
[2021-11-28] MEDS ORDERED: Budesonide 0.5 MG/2 ML NEB NEB PRN (08:28)
[2021-11-28] MEDS ORDERED: Non-Formulary Item 1 EACH (Acetaminophen [Tylenol] 325 MG Capsule) PO PRN (08:28)
[2021-11-28] MEDS ORDERED: GUAIFENESIN 1200 MG PO PRN (08:28)
[2021-11-28] MEDS ORDERED: Albuterol Sulfate 2.5 mg/3 ml Neb NEB PRN (09:19)
[2021-11-28] MEDS ORDERED: Azithromycin 500 MG VIAL ONE (12:40)
[2021-11-28] MEDS: Azithromycin 500 MG in Sodium Chloride 0.9% 250 ML 250 ML IVPB SCH (12:41)
[2021-11-28] MEDS: Furosemide 40 MG/4 ML VIAL SLOW IVP SCH ×2 (13:41→14:46)
[2021-11-28] MEDS: Finasteride 5 MG TAB PO SCH (13:42)
[2021-11-28] MEDS: Metoprolol Tartrate 100 MG TAB PO SCH ×2 (13:42→22:04)
[2021-11-28] MEDS: Aspirin Chewable 81 MG TAB PO SCH (13:42)
[2021-11-28] MEDS: Lisinopril 20 MG TAB PO SCH (13:42)
[2021-11-28] MEDS: Folic Acid 1 MG TAB PO SCH (13:42)
[2021-11-28] MEDS: Apixaban 5 MG TAB PO SCH ×2 (13:42→22:04)
[2021-11-28 14:36] VITALS: BMI 24.6
[2021-11-28] MEDS: Acetaminophen 650 MG Suppository PR PRN ×2 (14:46→22:30)
[2021-11-28] MEDS: Cefepime 2 GM in Sodium Chloride 0.9% 100 ML IVPB SCH (14:46)
[2021-11-28] MEDS: VANCOMYCIN 1.25 GM/250 ML BAG 1.25 GM in Premix Bag 1 BAG IVPB SCH (17:48)
[2021-11-28] MEDS ORDERED: Simvastatin 20 MG TAB PO SCH (21:00)
[2021-11-28] MEDS: Atorvastatin Calcium 10 MG TAB PO SCH (22:04)
[2021-11-28] MEDS ORDERED: Scopolamine 1.5 mg/72 hour Patch TOP SCH (23:59)
[2021-11-29] MEDS ORDERED: Metoprolol Tartrate 5 MG/5 ML VIAL IVP PRN (03:26)
[2021-11-29] MEDS: Cefepime 2 GM in Sodium Chloride 0.9% 100 ML IVPB SCH ×2 (03:49→15:16)
[2021-11-29 04:36] LABS: #Lymphocytes 0.9 thou/uL (1.20-3.40); #Monocytes 0.5 thou/uL (0.11-0.59); #Neutrophils 6.3 thou/uL (1.40-6.50); %Basophils 0.1 % (0.0-1.0); %Eosinophils 0.5 % (0.0-10.0); %Lymphocytes 11.7 % (21.0-51.0); %Monocytes 6.6 % (0.0-10.0); Hemoglobin 12.7 g/dL (14.0-18.0); Mean Corpuscular Hemoglobin 29.6 pg (27.0-31.0); Mean Corpuscular Volume 95.5 fL (78.0-98.0); Mean Platelet Volume 10.4 fL (7.4-10.4); Platelet Count 183 thou/uL (130-400); RBC Distribution Width 14.9 % (11.5-14.5); White Blood Cell (WBC) Count 7.7 thou/uL (4.8-10.8)
[2021-11-29] MEDS: Acetaminophen 650 MG Suppository PR PRN (04:55)
[2021-11-29 04:57] LABS: Anion Gap 16 mmol/L (10-20); BUN (Urea Nitrogen) 16 mg/dL (8.4-25.7); Calc. Creatinine Clearance 72 mL/min (70-130); Calcium 9.6 mg/dL (7.8-10.44); Carbon Dioxide 21 mmol/L (23-31); Chloride 105 mmol/L (98-107); Estimated GFR 82; Glucose 131 mg/dL (83-110); Magnesium 1.7 mg/dL (1.6-2.6); Potassium 3.8 mmol/L (3.5-5.1); Sodium 138 mmol/L (136-145)
[2021-11-29] MEDS: VANCOMYCIN 1.25 GM/250 ML BAG 1.25 GM in Premix Bag 1 BAG IVPB SCH ×2 (05:14→18:00)
[2021-11-29] MEDS: Furosemide 40 MG/4 ML VIAL SLOW IVP SCH (06:28)
[2021-11-29] MEDS: Lisinopril 20 MG TAB PO SCH (08:53)
[2021-11-29] MEDS: Aspirin Chewable 81 MG TAB PO SCH (08:53)
[2021-11-29] MEDS: Folic Acid 1 MG TAB PO SCH (08:53)
[2021-11-29] MEDS: Finasteride 5 MG TAB PO SCH (08:53)
[2021-11-29] MEDS: Metoprolol Tartrate 100 MG TAB PO SCH (08:53)
[2021-11-29] MEDS: Apixaban 5 MG TAB PO SCH (08:53)
[2021-11-29] MEDS: Azithromycin 500 MG in Sodium Chloride 0.9% 250 ML 250 ML IVPB SCH (08:54)
[2021-11-29] MEDS ORDERED: Communication Order-Pharmacy FS ONE (09:52)
[2021-11-29] MEDS ORDERED: Enoxaparin Sodium 100 MG/ML SYRINGE SC SCH (11:00)
[2021-11-29] MEDS ORDERED: Electrolyte Replacement Protocol 1 EACH FS SCH (11:45)
[2021-11-29] MEDS ORDERED: Electrolyte Replacement Protocol FS PRN (12:00)
[2021-11-29] MEDS ORDERED: Magnesium 2 GM/50 ML(in water) 2 GM in Premix Bag 1 BAG IVPB SCH (12:00)
[2021-11-29] MEDS ORDERED: Multivitamins, Adult 10 ML, Folic Acid 1 MG, Thiamine HCl 100 MG in Dextrose 5 %-0.45 %... IV SCH (12:00)
[2021-11-29] MEDS ORDERED: Insulin Regular 300 UNITS/3 ML VIAL SC PRN (16:04)
[2021-11-29] MEDS ORDERED: Dextrose 50% Abboject 50 ML SYRINGE SLOW IVP PRN (16:04)
[2021-11-29] MEDS ORDERED: Dextrose 5% in Water 1,000 ML IV PRN (17:00)
[2021-11-29 17:31] LABS: Vancomycin, Trough 17.5 ug/mL
[2021-11-29] MEDS: Enoxaparin Sodium 100 MG/ML SYRINGE SC SCH (22:01)
[2021-11-29] MEDS: Atorvastatin Calcium 10 MG TAB PO SCH (22:02)
[2021-11-29] MEDS: Metoprolol Tartrate 5 MG/5 ML VIAL IVP PRN (22:02)
[2021-11-30] MEDS: Cefepime 2 GM in Sodium Chloride 0.9% 100 ML IVPB SCH ×2 (05:06→14:45)
[2021-11-30] MEDS: VANCOMYCIN 1.25 GM/250 ML BAG 1.25 GM in Premix Bag 1 BAG IVPB SCH ×2 (06:13→17:14)
[2021-11-30 06:49] LABS: #Lymphocytes 1.3 thou/uL (1.20-3.40); #Monocytes 0.7 thou/uL (0.11-0.59); #Neutrophils 4.6 thou/uL (1.40-6.50); %Eosinophils 0.7 % (0.0-10.0); %Lymphocytes 20.2 % (21.0-51.0); %Monocytes 9.9 % (0.0-10.0); %Neutrophils 69.2 % (42.0-75.0); Hemoglobin 11.9 g/dL (14.0-18.0); Mean Corpuscular HGB CONC 31.1 g/dL (32.0-36.0); Mean Corpuscular Hemoglobin 29.6 pg (27.0-31.0); Mean Corpuscular Volume 95.1 fL (78.0-98.0); Mean Platelet Volume 10.5 fL (7.4-10.4); Platelet Count 158 thou/uL (130-400); RBC Distribution Width 14.7 % (11.5-14.5); Red Blood Cell (RBC) Count 4.02 mill/uL (4.70-6.10); White Blood Cell (WBC) Count 6.6 thou/uL (4.8-10.8)
[2021-11-30 06:52] LABS: ALT (SGPT) 10 U/L (8-55); AST (SGOT) 13 U/L (5-34); Albumin 3.1 g/dL (3.4-4.8); Alkaline Phosphatase 76 U/L (40-110); Anion Gap 16 mmol/L (10-20); BUN (Urea Nitrogen) 24 mg/dL (8.4-25.7); Bilirubin, Total 0.4 mg/dL (0.2-1.2); Calc. Creatinine Clearance 61 mL/min (70-130); Calcium 9.5 mg/dL (7.8-10.44); Carbon Dioxide 21 mmol/L (23-31); Chloride 108 mmol/L (98-107); Estimated GFR 69; Globulin 3.7 g/dL (2.4-3.5); Glucose 138 mg/dL (83-110); Magnesium 2.1 mg/dL (1.6-2.6); Phosphorus 3.6 mg/dL (2.3-4.7); Potassium 3.8 mmol/L (3.5-5.1); Protein, Total 6.8 g/dL (5.8-8.1); Sodium 141 mmol/L (136-145)
[2021-11-30] MEDS: Metoprolol Tartrate 5 MG/5 ML VIAL IVP PRN (07:25)
[2021-11-30] MEDS: Enoxaparin Sodium 100 MG/ML SYRINGE SC SCH ×2 (08:09→20:34)
[2021-11-30] MEDS ORDERED: Metoprolol Tartrate 5 MG/5 ML VIAL IVP SCH ×2 (09:00→13:00)
[2021-11-30] MEDS ORDERED: Multivitamins, Adult 10 ML, Folic Acid 1 MG, Thiamine HCl 100 MG in Dextrose 5 %-0.45 %... IV SCH (10:00)
[2021-11-30] MEDS: Aspirin Chewable 81 MG TAB PO SCH (13:04)
[2021-11-30] MEDS: Finasteride 5 MG TAB PO SCH (13:04)
[2021-11-30] MEDS: Folic Acid 1 MG TAB PO SCH (13:04)
[2021-11-30] MEDS: Diltiazem HCl 125 MG in Premix Bag 1 BAG IVPB SCH (15:35)
[2021-11-30] MEDS: Atorvastatin Calcium 10 MG TAB PO SCH (20:33)
[2021-12-01] MEDS: Cefepime 2 GM in Sodium Chloride 0.9% 100 ML IVPB SCH ×2 (02:22→15:06)
[2021-12-01] MEDS: VANCOMYCIN 1.25 GM/250 ML BAG 1.25 GM in Premix Bag 1 BAG IVPB SCH ×2 (04:45→17:12)
[2021-12-01] MEDS: Diltiazem HCl 125 MG in Premix Bag 1 BAG IVPB SCH ×2 (06:05→20:15)
[2021-12-01] MEDS: Enoxaparin Sodium 100 MG/ML SYRINGE SC SCH (07:41)
[2021-12-01] MEDS: Finasteride 5 MG TAB PO SCH (07:41)
[2021-12-01] MEDS: Folic Acid 1 MG TAB PO SCH (07:41)
[2021-12-01] MEDS: Aspirin Chewable 81 MG TAB PO SCH (07:41)
[2021-12-01] MEDS ORDERED: Metoprolol Tartrate 25 MG TAB PO SCH (09:00)
[2021-12-01 09:22] LABS: #Eosinphils 0.1 thou/uL (0.0-0.7); #Monocytes 0.5 thou/uL (0.11-0.59); #Neutrophils 3.8 thou/uL (1.40-6.50); %Basophils 0.5 % (0.0-1.0); %Eosinophils 1.1 % (0.0-10.0); %Lymphocytes 18.6 % (21.0-51.0); %Monocytes 8.6 % (0.0-10.0); %Neutrophils 71.2 % (42.0-75.0); Hemoglobin 10.8 g/dL (14.0-18.0); Mean Corpuscular HGB CONC 30.9 g/dL (32.0-36.0); Mean Corpuscular Hemoglobin 29.6 pg (27.0-31.0); Mean Corpuscular Volume 95.7 fL (78.0-98.0); Mean Platelet Volume 9.6 fL (7.4-10.4); Platelet Count 155 thou/uL (130-400); RBC Distribution Width 14.3 % (11.5-14.5); Red Blood Cell (RBC) Count 3.64 mill/uL (4.70-6.10); White Blood Cell (WBC) Count 5.4 thou/uL (4.8-10.8)
[2021-12-01 09:43] LABS: Anion Gap 11 mmol/L (10-20); BUN (Urea Nitrogen) 21 mg/dL (8.4-25.7); Calc. Creatinine Clearance 73 mL/min (70-130); Carbon Dioxide 25 mmol/L (23-31); Chloride 109 mmol/L (98-107); Estimated GFR 83; Glucose 123 mg/dL (83-110); Magnesium 2.1 mg/dL (1.6-2.6); Phosphorus 2.3 mg/dL (2.3-4.7); Potassium 3.5 mmol/L (3.5-5.1); Sodium 141 mmol/L (136-145)
[2021-12-01] MEDS ORDERED: Potassium Chloride 20 MEQ TAB PO SCH ×2 (10:00→17:00)
[2021-12-01] MEDS: Metoprolol Tartrate 25 MG TAB PO SCH ×2 (15:06→20:16)
[2021-12-01] MEDS: guaiFENesin ER 600 MG TAB PO PRN (20:16)
[2021-12-01] MEDS: Atorvastatin Calcium 10 MG TAB PO SCH (20:16)
[2021-12-01] MEDS: Apixaban 5 MG TAB PO SCH (20:16)
[2021-12-02] MEDS: Cefepime 2 GM in Sodium Chloride 0.9% 100 ML IVPB SCH ×2 (03:50→14:45)
[2021-12-02 04:47] LABS: #Eosinphils 0.2 thou/uL (0.0-0.7); #Lymphocytes 1.1 thou/uL (1.20-3.40); #Monocytes 0.6 thou/uL (0.11-0.59); #Neutrophils 4.2 thou/uL (1.40-6.50); %Basophils 0.5 % (0.0-1.0); %Eosinophils 3.7 % (0.0-10.0); %Lymphocytes 17.7 % (21.0-51.0); %Monocytes 9.2 % (0.0-10.0); Mean Corpuscular HGB CONC 30.9 g/dL (32.0-36.0); Platelet Count 145 thou/uL (130-400); RBC Distribution Width 14.4 % (11.5-14.5); Red Blood Cell (RBC) Count 3.67 mill/uL (4.70-6.10); White Blood Cell (WBC) Count 6.1 thou/uL (4.8-10.8)
[2021-12-02 05:12] LABS: Anion Gap 15 mmol/L (10-20); BUN (Urea Nitrogen) 17 mg/dL (8.4-25.7); Calc. Creatinine Clearance 82 mL/min (70-130); Calcium 9.3 mg/dL (7.8-10.44); Carbon Dioxide 16 mmol/L (23-31); Chloride 111 mmol/L (98-107); Estimated GFR 86; Glucose 93 mg/dL (83-110); Phosphorus 2.4 mg/dL (2.3-4.7); Potassium 3.8 mmol/L (3.5-5.1); Sodium 138 mmol/L (136-145)
[2021-12-02] MEDS: VANCOMYCIN 1.25 GM/250 ML BAG 1.25 GM in Premix Bag 1 BAG IVPB SCH ×2 (05:28→19:26)
[2021-12-02] MEDS ORDERED: Magnesium 2 GM/50 ML(in water) 2 GM in Premix Bag 1 BAG IVPB SCH (08:00)
[2021-12-02] MEDS: Apixaban 5 MG TAB PO SCH ×2 (08:26→20:52)
[2021-12-02] MEDS: Finasteride 5 MG TAB PO SCH (08:26)
[2021-12-02] MEDS: Folic Acid 1 MG TAB PO SCH ×2 (08:26→20:52)
[2021-12-02] MEDS: Aspirin Chewable 81 MG TAB PO SCH (08:26)
[2021-12-02] MEDS ORDERED: Potassium Chloride 20 MEQ TAB PO SCH (09:00)
[2021-12-02] MEDS ORDERED: Metoprolol Tartrate 50 MG TAB PO SCH (09:00)
[2021-12-02] MEDS: guaiFENesin ER 600 MG TAB PO PRN (16:45)
[2021-12-02 18:28] LABS: Vancomycin, Trough 19.6 ug/mL
[2021-12-02] MEDS: Ipratropium Bromide 2.5 ml Neb NEB SCH (18:52)
[2021-12-02] MEDS: Amoxicillin/Potassium Clav 875 MG TAB PO SCH (20:52)
[2021-12-02] MEDS: Cyanocobalamin (Vitamin B-12) 1,000 MCG TAB PO SCH (20:52)
[2021-12-02] MEDS: Metoprolol Tartrate 50 MG TAB PO SCH (20:53)
[2021-12-02] MEDS: guaiFENesin ER 600 MG TAB PO SCH (20:53)
[2021-12-02] MEDS: Multivit, Therapeutic 1 TAB PO SCH (20:53)
[2021-12-02] MEDS: Atorvastatin Calcium 10 MG TAB PO SCH (20:53)
[2021-12-03] MEDS: Ipratropium Bromide 2.5 ml Neb NEB SCH ×4 (01:13→18:56)
[2021-12-03 04:54] LABS: #Eosinphils 0.1 thou/uL (0.0-0.7); #Lymphocytes 1.1 thou/uL (1.20-3.40); #Monocytes 0.4 thou/uL (0.11-0.59); #Neutrophils 4.5 thou/uL (1.40-6.50); %Eosinophils 1.7 % (0.0-10.0); %Lymphocytes 18.4 % (21.0-51.0); %Monocytes 6.9 % (0.0-10.0); Hemoglobin 11.8 g/dL (14.0-18.0); Mean Corpuscular HGB CONC 31.2 g/dL (32.0-36.0); Mean Corpuscular Hemoglobin 29.7 pg (27.0-31.0); Mean Corpuscular Volume 95.2 fL (78.0-98.0); Mean Platelet Volume 10.3 fL (7.4-10.4); Platelet Count 169 thou/uL (130-400); RBC Distribution Width 14.5 % (11.5-14.5); Red Blood Cell (RBC) Count 3.99 mill/uL (4.70-6.10); White Blood Cell (WBC) Count 6.2 thou/uL (4.8-10.8)
[2021-12-03 05:02] LABS: Anion Gap 16 mmol/L (10-20); BUN (Urea Nitrogen) 18 mg/dL (8.4-25.7); Calc. Creatinine Clearance 81 mL/min (70-130); Calcium 9.9 mg/dL (7.8-10.44); Carbon Dioxide 19 mmol/L (23-31); Chloride 107 mmol/L (98-107); Estimated GFR 86; Glucose 103 mg/dL (83-110); Magnesium 2.3 mg/dL (1.6-2.6); Potassium 3.8 mmol/L (3.5-5.1); Sodium 138 mmol/L (136-145)
[2021-12-03] MEDS ORDERED: Potassium Phosphate 15 MMOL in Sodium Chloride 0.9% 250 ML 250 ML IVPB SCH (08:45)
[2021-12-03] MEDS: PHOS-NAK 1 PKT PACK PO SCH ×2 (09:26→12:57)
[2021-12-03] MEDS: Finasteride 5 MG TAB PO SCH (09:27)
[2021-12-03] MEDS: Amoxicillin/Potassium Clav 875 MG TAB PO SCH ×2 (09:28→20:39)
[2021-12-03] MEDS: Metoprolol Tartrate 50 MG TAB PO SCH ×2 (09:28→20:40)
[2021-12-03] MEDS: guaiFENesin ER 600 MG TAB PO SCH ×2 (09:28→20:40)
[2021-12-03] MEDS: Senokot S 8.6-50 MG TAB PO SCH ×2 (09:28→20:40)
[2021-12-03] MEDS: Aspirin Chewable 81 MG TAB PO SCH (09:28)
[2021-12-03] MEDS: Apixaban 5 MG TAB PO SCH ×2 (09:29→20:40)
[2021-12-03] MEDS ORDERED: K-Phos Neutral 250 MG TAB PO SCH (12:00)
[2021-12-03] MEDS: Folic Acid 1 MG TAB PO SCH (20:39)
[2021-12-03] MEDS: Atorvastatin Calcium 10 MG TAB PO SCH (20:40)
[2021-12-03] MEDS: Cyanocobalamin (Vitamin B-12) 1,000 MCG TAB PO SCH (20:40)
[2021-12-03] MEDS: Multivit, Therapeutic 1 TAB PO SCH (20:40)
[2021-12-04] MEDS: Ipratropium Bromide 2.5 ml Neb NEB SCH ×4 (01:17→19:03)
[2021-12-04 04:53] LABS: Albumin 3.2 g/dL (3.4-4.8); Anion Gap 15 mmol/L (10-20); BUN (Urea Nitrogen) 17 mg/dL (8.4-25.7); BUN/Creatinine Ratio 20.73; Calc. Creatinine Clearance 80 mL/min (70-130); Calcium 9.8 mg/dL (7.8-10.44); Carbon Dioxide 20 mmol/L (23-31); Chloride 107 mmol/L (98-107); Estimated GFR 86; Glucose 153 mg/dL (83-110); Phosphorus 2.2 mg/dL (2.3-4.7); Potassium 3.6 mmol/L (3.5-5.1); Sodium 138 mmol/L (136-145)
[2021-12-04] MEDS: Apixaban 5 MG TAB PO SCH ×2 (09:55→20:59)
[2021-12-04] MEDS: Amoxicillin/Potassium Clav 875 MG TAB PO SCH ×2 (09:55→20:59)
[2021-12-04] MEDS: Aspirin Chewable 81 MG TAB PO SCH (09:55)
[2021-12-04] MEDS: guaiFENesin ER 600 MG TAB PO SCH ×2 (09:55→21:03)
[2021-12-04] MEDS: Senokot S 8.6-50 MG TAB PO SCH ×2 (09:55→21:03)
[2021-12-04] MEDS: Metoprolol Tartrate 50 MG TAB PO SCH ×2 (09:56→20:54)
[2021-12-04] MEDS: Finasteride 5 MG TAB PO SCH (09:56)
[2021-12-04] MEDS: Cyanocobalamin (Vitamin B-12) 1,000 MCG TAB PO SCH (20:59)
[2021-12-04] MEDS: Atorvastatin Calcium 10 MG TAB PO SCH (21:03)
[2021-12-04] MEDS: Multivit, Therapeutic 1 TAB PO SCH (21:03)
[2021-12-04] MEDS: Folic Acid 1 MG TAB PO SCH (21:03)
[2021-12-04] MEDS ORDERED: hydrALAZINE 20 MG/ML VIAL SLOW IVP PRN (23:44)
[2021-12-05] MEDS: Ipratropium Bromide 2.5 ml Neb NEB SCH ×3 (00:57→13:52)
[2021-12-05] MEDS: Senokot S 8.6-50 MG TAB PO SCH (10:00)
[2021-12-05] MEDS: Metoprolol Tartrate 50 MG TAB PO SCH (10:00)
[2021-12-05] MEDS: Apixaban 5 MG TAB PO SCH (10:03)
[2021-12-05] MEDS: guaiFENesin ER 600 MG TAB PO SCH (10:03)
[2021-12-05] MEDS: Aspirin Chewable 81 MG TAB PO SCH (10:03)
[2021-12-05] MEDS: Finasteride 5 MG TAB PO SCH (10:03)
[2021-12-05] MEDS: Amoxicillin/Potassium Clav 875 MG TAB PO SCH (10:12)
[2021-12-05 15:57] LABS: Hemoglobin 12.2 g/dL (14.0-18.0); Platelet Count 233 thou/uL (130-400)
[2021-12-05 16:12] VITALS: BP 140/98; TEMP 98.3
== END 2021-12-05 18:10 | disposition home or self-care (01) | DRG 871 ==
LOC: ERS 02:54 → ERHOLD 04:46 → 2NO 13:43 → OBSVTOIN 11-29 10:15
PROVIDERS: ADMIT Student in an Organized Health Care Education/Training Program; ATTEND Internal Medicine
PROC: 4A10X4Z Monitoring of Central Nervous Electrical Activity, External Approach (ICD-10-PCS; principal; 2021-11-29)
PROC: 3E03329 Introduction of Other Anti-infective into Peripheral Vein, Percutaneous Approach (ICD-10-PCS; 2021-11-29)
DX: A41.9 Sepsis, unspecified organism (principal); I50.33 Acute on chronic diastolic (congestive) heart failure; J96.01 Acute respiratory failure with hypoxia; G92.8 Other toxic encephalopathy; J69.0 Pneumonitis due to inhalation of food and vomit; I13.0 Hypertensive heart and chronic kidney disease with heart failure and stage 1 through stage 4 chronic kidney disease, or unspecified chronic kidney disease; I48.92 Unspecified atrial flutter; I48.21 Permanent atrial fibrillation; N40.0 Benign prostatic hyperplasia without lower urinary tract symptoms; M10.9 Gout, unspecified; E78.00 Pure hypercholesterolemia, unspecified; N18.9 Chronic kidney disease, unspecified; Z20.822 Contact with and (suspected) exposure to COVID-19; E78.5 Hyperlipidemia, unspecified; F03.90 Unspecified dementia, unspecified severity, without behavioral disturbance, psychotic disturbance, mood disturbance, and anxiety; E83.42 Hypomagnesemia; I35.0 Nonrheumatic aortic (valve) stenosis; I25.5 Ischemic cardiomyopathy; E83.39 Other disorders of phosphorus metabolism; Z79.82 Long term (current) use of aspirin; Z79.899 Other long term (current) drug therapy; Z79.01 Long term (current) use of anticoagulants; Z79.51 Long term (current) use of inhaled steroids; Z85.46 Personal history of malignant neoplasm of prostate; Z90.49 Acquired absence of other specified parts of digestive tract; Z98.890 Other specified postprocedural states; Z95.5 Presence of coronary angioplasty implant and graft
CPT/HCPCS: 36415; 36416; 36600; 70450; 70553; 71045; 80048; 80053; 80069; 80143; 80179; 80202; 80306; 81003; 81015; 82140; 82805; 83605; 83735; 83880; 84100; 84484; 85014; 85018; 85025; 85049; 86140; 87040; 87086; 93005; 94640; 95712; 95819; 95957; 96374; 96375; 96376; 80307; G0378; J0360; J0456; J0692; J1650; J1940; J3370; J3411; J3475; J3490; J7042; J7050; J7620; U0002; U0003; U0005

== ENCOUNTER 2022-01-21 04:19 | Observation (INO) | payer MEDICARE, BC ==
[2022-01-21 05:34] LABS: #Eosinphils 0.2 thou/uL (0.0-0.7); #Lymphocytes 1.8 thou/uL (1.20-3.40); #Monocytes 0.5 thou/uL (0.11-0.59); #Neutrophils 2.6 thou/uL (1.40-6.50); %Basophils 0.2 % (0.0-1.0); %Eosinophils 4.7 % (0.0-10.0); %Monocytes 9.4 % (0.0-10.0); %Neutrophils 50.7 % (42.0-75.0); Hemoglobin 12.7 g/dL (14.0-18.0); Mean Corpuscular HGB CONC 31.7 g/dL (32.0-36.0); Mean Corpuscular Hemoglobin 29.5 pg (27.0-31.0); Mean Corpuscular Volume 93.1 fL (78.0-98.0); Mean Platelet Volume 10.7 fL (7.4-10.4); Platelet Count 182 thou/uL (130-400); RBC Distribution Width 15.1 % (11.5-14.5); Red Blood Cell (RBC) Count 4.29 mill/uL (4.70-6.10); White Blood Cell (WBC) Count 5.1 thou/uL (4.8-10.8)
[2022-01-21 05:57] LABS: ALT (SGPT) 18 U/L (8-55); AST (SGOT) 16 U/L (5-34); Albumin 3.6 g/dL (3.4-4.8); Alkaline Phosphatase 108 U/L (40-110); Anion Gap 12 mmol/L (10-20); BUN (Urea Nitrogen) 20 mg/dL (8.4-25.7); Bilirubin, Total 0.7 mg/dL (0.2-1.2); Calc. Creatinine Clearance 0 mL/min (70-130); Calcium 9.9 mg/dL (7.8-10.44); Carbon Dioxide 23 mmol/L (23-31); Chloride 106 mmol/L (98-107); Estimated GFR 76; Glucose 113 mg/dL (83-110); Lipase 5 U/L (8-78); Magnesium 1.9 mg/dL (1.6-2.6); Potassium 3.5 mmol/L (3.5-5.1); Protein, Total 7.6 g/dL (5.8-8.1); Sodium 137 mmol/L (136-145)
[2022-01-21 06:27] LABS: Bilirubin Negative (Negative); Blood, Urine Negative (Negative); Clarity Clear (Clear); Glucose, Urine (Dipstick) Normal (Negative); Ketone, Urine Negative (Negative); Leukocyte Negative Leu/uL (Negative); Nitrite Negative (Negative); Protein, Urine (Dipstick) 10 mg/dL (Neg-Trace); Specific Gravity, Urine 1.012 (1.002-1.036); Urobilinogen Normal mg/dL (Less than 2)
[2022-01-21] MEDS ORDERED: Furosemide 40 MG/4 ML VIAL ONE (07:15)
[2022-01-21] MEDS ORDERED: Acetaminophen 325 MG TAB PO PRN (08:14)
[2022-01-21] MEDS ORDERED: Bisacodyl 10 MG SUPP PR PRN (08:14)
[2022-01-21] MEDS ORDERED: Senokot S 8.6-50 MG TAB PO PRN (08:14)
[2022-01-21] MEDS ORDERED: Ondansetron PF 4 MG/2 ML Vial IVP PRN (08:14)
[2022-01-21] MEDS ORDERED: Bisacodyl 5 MG TAB PO PRN (08:14)
[2022-01-21] MEDS ORDERED: Aspirin 81 mg Enteric Coated Tablet PO SCH (08:30)
[2022-01-21 08:55] LABS: Hemoglobin A1c 5.5 % (4.0-6.0)
[2022-01-21 10:11] LABS: SARS-CoV-2 NAA Rapid Test DETECTED (NotDetected)
[2022-01-21 15:58] VITALS: BMI 26.2
[2022-01-21] MEDS: NIRMATRELVIR 150 MG/RITONAVIR 100 MG TABLET PO SCH (20:58)
[2022-01-21] MEDS: Metoprolol Tartrate 50 MG TAB PO SCH (20:59)
[2022-01-21] MEDS: Apixaban 5 MG TAB PO SCH (20:59)
[2022-01-21] MEDS: Senokot S 8.6-50 MG TAB PO SCH (20:59)
[2022-01-21] MEDS ORDERED: Atorvastatin Calcium 40 MG TAB PO SCH (21:00)
[2022-01-22] MEDS ORDERED: Finasteride 5 MG TAB PO SCH (09:00)
[2022-01-22] MEDS ORDERED: Aspirin 81 mg Enteric Coated Tablet PO SCH (09:00)
[2022-01-22] MEDS ORDERED: Folic Acid 1 MG TAB PO SCH (09:00)
[2022-01-22 10:46] LABS: #Eosinphils 0.1 thou/uL (0.0-0.7); #Lymphocytes 1.6 thou/uL (1.20-3.40); #Monocytes 0.4 thou/uL (0.11-0.59); #Neutrophils 3.1 thou/uL (1.40-6.50); %Basophils 0.2 % (0.0-1.0); %Eosinophils 2.1 % (0.0-10.0); %Lymphocytes 30.9 % (21.0-51.0); %Monocytes 7.9 % (0.0-10.0); Hemoglobin 13.8 g/dL (14.0-18.0); Mean Corpuscular HGB CONC 32.2 g/dL (32.0-36.0); Mean Corpuscular Hemoglobin 30.2 pg (27.0-31.0); Mean Corpuscular Volume 93.6 fL (78.0-98.0); Mean Platelet Volume 11.4 fL (7.4-10.4); Platelet Count 157 thou/uL (130-400); RBC Distribution Width 15.3 % (11.5-14.5); Red Blood Cell (RBC) Count 4.58 mill/uL (4.70-6.10); White Blood Cell (WBC) Count 5.3 thou/uL (4.8-10.8)
[2022-01-22 10:49] LABS: ALT (SGPT) 16 U/L (8-55); AST (SGOT) 19 U/L (5-34); Albumin 3.5 g/dL (3.4-4.8); Alkaline Phosphatase 99 U/L (40-110); Bilirubin, Direct 0.2 mg/dL (0.1-0.3); Bilirubin, Total 0.6 mg/dL (0.2-1.2)
[2022-01-22 10:56] LABS: Anion Gap 16 mmol/L (10-20); BUN (Urea Nitrogen) 17 mg/dL (8.4-25.7); Calc. Creatinine Clearance 76 mL/min (70-130); Calcium 9.8 mg/dL (7.8-10.44); Carbon Dioxide 21 mmol/L (23-31); Chloride 107 mmol/L (98-107); Estimated GFR 84; Glucose 111 mg/dL (83-110); Magnesium 1.8 mg/dL (1.6-2.6); Potassium 4.1 mmol/L (3.5-5.1); Sodium 140 mmol/L (136-145)
[2022-01-22 11:04] LABS: Triglycerides 95 mg/dL (Less than 150)
[2022-01-22 11:09] LABS: Cardiac Risk 4.2 (Less than 4.5); Cholesterol 186 mg/dl (< 200 Desired); HDL Cholesterol 44 mg/dL (>60 Neg Risk); LDL Cholesterol, Calculated 123 mg/dL
[2022-01-22 12:44] VITALS: BP 141/92; TEMP 98.4
[2022-01-22] MEDS: Metoprolol Tartrate 50 MG TAB PO SCH (12:58)
[2022-01-22] MEDS: Senokot S 8.6-50 MG TAB PO SCH (12:58)
[2022-01-22] MEDS: Apixaban 5 MG TAB PO SCH (13:02)
[2022-01-22] MEDS: NIRMATRELVIR 150 MG/RITONAVIR 100 MG TABLET PO SCH (13:02)
[2022-01-23] MEDS ORDERED: Amlodipine 5 MG TAB PO SCH (09:00)
== END 2022-01-22 17:25 | disposition home or self-care (01) ==
LOC: ERS 04:19 → SUATTDRO 04:19 → ERHOLD 08:14 → NEURO 16:02
PROVIDERS: ADMIT Internal Medicine; ATTEND Internal Medicine
DX: U07.1 COVID-19 (principal); G93.41 Metabolic encephalopathy; R33.9 Retention of urine, unspecified; I13.0 Hypertensive heart and chronic kidney disease with heart failure and stage 1 through stage 4 chronic kidney disease, or unspecified chronic kidney disease; N18.9 Chronic kidney disease, unspecified; I50.32 Chronic diastolic (congestive) heart failure; D63.1 Anemia in chronic kidney disease; I48.92 Unspecified atrial flutter; I35.0 Nonrheumatic aortic (valve) stenosis; I25.10 Atherosclerotic heart disease of native coronary artery without angina pectoris; N40.0 Benign prostatic hyperplasia without lower urinary tract symptoms; M10.9 Gout, unspecified; E78.00 Pure hypercholesterolemia, unspecified; I48.0 Paroxysmal atrial fibrillation; Z79.01 Long term (current) use of anticoagulants; Z79.82 Long term (current) use of aspirin; Z79.899 Other long term (current) drug therapy; Z95.5 Presence of coronary angioplasty implant and graft
CPT/HCPCS: 70450; 70551; 71045; 80048; 80061; 80076; 81003; 83036; 83605; 83690; 83735 ×2; 83880; 84484; 85025; 87040; 87086; 93005; 93880; 96374; 99285; U0002; 36415; 80053; 84443; J1940

== ENCOUNTER 2022-02-03 10:24 | Emergency (ER) | payer MEDICARE, BC ==
[2022-02-03 11:12] LABS: #Eosinphils 0.2 thou/uL (0.0-0.7); #Lymphocytes 1.4 thou/uL (1.20-3.40); #Monocytes 0.4 thou/uL (0.11-0.59); #Neutrophils 4.1 thou/uL (1.40-6.50); %Basophils 0.4 % (0.0-1.0); %Eosinophils 3.6 % (0.0-10.0); %Lymphocytes 23.1 % (21.0-51.0); %Monocytes 6.8 % (0.0-10.0); Hemoglobin 11.5 g/dL (14.0-18.0); Mean Corpuscular HGB CONC 31.6 g/dL (32.0-36.0); Mean Corpuscular Hemoglobin 29.5 pg (27.0-31.0); Mean Corpuscular Volume 93.4 fL (78.0-98.0); Mean Platelet Volume 9.9 fL (7.4-10.4); Platelet Count 222 thou/uL (130-400); RBC Distribution Width 15.1 % (11.5-14.5); Red Blood Cell (RBC) Count 3.89 mill/uL (4.70-6.10); White Blood Cell (WBC) Count 6.2 thou/uL (4.8-10.8)
[2022-02-03 11:31] LABS: ALT (SGPT) 27 U/L (8-55); AST (SGOT) 16 U/L (5-34); Albumin 3.3 g/dL (3.4-4.8); Alkaline Phosphatase 118 U/L (40-110); Anion Gap 13 mmol/L (10-20); BUN (Urea Nitrogen) 14 mg/dL (8.4-25.7); Bilirubin, Total 0.6 mg/dL (0.2-1.2); Calc. Creatinine Clearance 0 mL/min (70-130); Calcium 9.4 mg/dL (7.8-10.44); Carbon Dioxide 23 mmol/L (23-31); Chloride 109 mmol/L (98-107); Estimated GFR 78; Globulin 3.8 g/dL (2.4-3.5); Glucose 123 mg/dL (83-110); Potassium 3.5 mmol/L (3.5-5.1); Protein, Total 7.1 g/dL (5.8-8.1); Sodium 141 mmol/L (136-145)
[2022-02-03 13:05] LABS: Bilirubin Negative (Negative); Blood, Urine Negative (Negative); Glucose, Urine (Dipstick) Normal (Negative); Ketone, Urine Negative (Negative); Leukocyte Negative Leu/uL (Negative); Nitrite Negative (Negative); Protein, Urine (Dipstick) Negative (Neg-Trace); Specific Gravity, Urine 1.014 (1.002-1.036); Urobilinogen Normal mg/dL (Less than 2)
[2022-02-03 13:09] LABS: Clarity Hazy (Clear)
== END 2022-02-03 14:53 | disposition home or self-care (01) ==
LOC: ERS 10:24
DX: R10.9 Unspecified abdominal pain (principal); I25.10 Atherosclerotic heart disease of native coronary artery without angina pectoris; I10 Essential (primary) hypertension; E78.5 Hyperlipidemia, unspecified
CPT/HCPCS: 36415; 74177; 80053; 81003; 85025; Q9967

== ENCOUNTER 2022-08-31 15:57 | Inpatient (IN) | payer MEDICARE, BC ==
[2022-08-31] MEDS ORDERED: hydrALAZINE 20 MG/ML VIAL ONE (16:29)
[2022-08-31 17:45] LABS: #Eosinphils 0.1 thou/uL (0.0-0.7); #Lymphocytes 0.6 thou/uL (1.20-3.40); #Monocytes 0.4 thou/uL (0.11-0.59); #Neutrophils 6.8 thou/uL (1.40-6.50); %Eosinophils 0.8 % (0.0-10.0); %Lymphocytes 7.7 % (21.0-51.0); %Monocytes 4.9 % (0.0-10.0); %Neutrophils 86.5 % (42.0-75.0); Hemoglobin 12.9 g/dL (14.0-18.0); Mean Corpuscular HGB CONC 31.3 g/dL (32.0-36.0); Mean Corpuscular Hemoglobin 28.6 pg (27.0-31.0); Mean Corpuscular Volume 91.5 fl (78.0-98.0); Mean Platelet Volume 10.8 fL (7.4-10.4); Platelet Count 174 10x3/uL (130-400); RBC Distribution Width 14.5 % (11.5-14.5); White Blood Cell (WBC) Count 7.8 10x3/uL (4.8-10.8)
[2022-08-31 18:09] LABS: ALT (SGPT) 17 U/L (8-55); AST (SGOT) 21 U/L (5-34); Acetaminophen Less than 10.0 mcg/mL (10.0-30.0); Albumin 3.8 g/dL (3.4-4.8); Alcohol Less than 10 mg/dL (Less than 10); Alkaline Phosphatase 124 U/L (40-110); Anion Gap 13 mmol/L (10-20); BUN (Urea Nitrogen) 22 mg/dL (8.4-25.7); Bilirubin, Total 0.9 mg/dL (0.2-1.2); Calc. Creatinine Clearance 0 mL/min (70-130); Calcium 10.1 mg/dL (7.8-10.44); Carbon Dioxide 24 mmol/L (23-31); Chloride 108 mmol/L (98-107); Estimated GFR 62; Globulin 4.2 g/dL (2.4-3.5); Glucose 135 mg/dL (83-110); Potassium 4.1 mmol/L (3.5-5.1); Salicylate Less than 8.0 mg/dL (15.0-30.0); Sodium 141 mmol/L (136-145)
[2022-08-31 18:34] LABS: Bilirubin Negative (Negative); Blood, Urine Negative (Negative); Clarity Clear (Clear); Glucose, Urine (Dipstick) Normal (Negative); Ketone, Urine Negative (Negative); Leukocyte 75 Leu/uL (Negative); Nitrite Negative (Negative); Protein, Urine (Dipstick) 20 mg/dL (Neg-Trace); RBC/HPF 0-3 HPF (0-3); Specific Gravity, Urine 1.012 (1.002-1.036); Squamous Epithelial 0-3 HPF (0-3); Urobilinogen Normal mg/dL (Less than 2)
[2022-08-31 18:37] LABS: Bacteria/HPF 1+ HPF (None Seen)
[2022-08-31 18:40] LABS: Amphetamine Not Detected (NotDetected); Barbiturates Screen Not Detected (NotDetected); Benzodiazepine Screen Not Detected (NotDetected); Cocaine Metabolite Screen Not Detected (NotDetected); Methadone Not Detected (NotDetected); Methamphetamine Not Detected (NotDetected); Opiate Screen Not Detected (NotDetected); Oxycodone Screen Not Detected (NotDetected); Phencyclidine (PCP) Not Detected (NotDetected); THC/Cannabinoid Screen Not Detected (NotDetected); Tricyclic Screen Not Detected (NotDetected)
[2022-08-31] MEDS ORDERED: Ondansetron PF 4 MG/2 ML Vial ONE (18:50)
[2022-08-31] MEDS ORDERED: cefTRIAXone (ROCEPHIN) 1 GM VIAL ONE (19:40)
[2022-08-31] MEDS ORDERED: Ondansetron ODT 4 MG TAB PO PRN (22:30)
[2022-08-31] MEDS ORDERED: Albuterol 200 PUFF (6.7GM INHALER) INH PRN (22:38)
[2022-08-31 22:44] LABS: Actual Bicarbonate (HCO3v) 20.6 mEq/L (22-28); Calcium, Ionized (venous) 1.09 mmol/L (1.16-1.32); Chloride (VBG) 109 mmol/L (98-106); Hematocrit-VBG 45 % (42.0-52.0); Hemoglobin (Hb) 15.3 g/dL (12.6-17.4); Potassium (VBG) 3.95 mmol/L (3.70-5.30); Sodium 140.3 mmol/L (133-146); pH (venous) 7.455 (7.32-7.43)
[2022-08-31] MEDS ORDERED: Doxycycline 100 MG CAP PO SCH (22:45)
[2022-08-31] MEDS ORDERED: Dextrose 5%-Lactated Ringers 1,000 ML IV SCH (22:45)
[2022-08-31] MEDS ORDERED: Tamsulosin HCl 0.4 MG CAP PO SCH (23:59)
[2022-09-01] MEDS ORDERED: Ondansetron ODT 4 MG TAB ONE (01:09)
[2022-09-01] MEDS: Doxycycline 100 MG in Sodium Chloride 0.9% 100 ML IVPB SCH ×2 (02:41→15:37)
[2022-09-01] MEDS ORDERED: Acetaminophen 650 MG Suppository ONE (03:30)
[2022-09-01 04:28] LABS: #Lymphocytes 0.7 thou/uL (1.20-3.40); #Monocytes 0.5 thou/uL (0.11-0.59); #Neutrophils 5.6 thou/uL (1.40-6.50); %Basophils 0.2 % (0.0-1.0); %Eosinophils 0.3 % (0.0-10.0); %Lymphocytes 9.5 % (21.0-51.0); %Monocytes 7.4 % (0.0-10.0); %Neutrophils 82.5 % (42.0-75.0); Hemoglobin 13.5 g/dL (14.0-18.0); Mean Corpuscular HGB CONC 32.5 g/dL (32.0-36.0); Mean Corpuscular Hemoglobin 30.1 pg (27.0-31.0); Mean Corpuscular Volume 92.7 fl (78.0-98.0); Mean Platelet Volume 10.8 fL (7.4-10.4); Platelet Count 158 10x3/uL (130-400); RBC Distribution Width 14.5 % (11.5-14.5); Red Blood Cell (RBC) Count 4.49 mill/uL (4.70-6.10); White Blood Cell (WBC) Count 6.8 10x3/uL (4.8-10.8)
[2022-09-01 04:52] LABS: Anion Gap 15 mmol/L (10-20); BUN (Urea Nitrogen) 16 mg/dL (8.4-25.7); Calc. Creatinine Clearance 0 mL/min (70-130); Calcium 9.6 mg/dL (7.8-10.44); Carbon Dioxide 21 mmol/L (23-31); Chloride 109 mmol/L (98-107); Estimated GFR 81; Glucose 141 mg/dL (83-110); Potassium 3.8 mmol/L (3.5-5.1); Sodium 141 mmol/L (136-145)
[2022-09-01] MEDS ORDERED: Doxycycline 100 MG CAP PO SCH (09:00)
[2022-09-01] MEDS ORDERED: Amlodipine 5 MG TAB PO SCH (09:00)
[2022-09-01] MEDS ORDERED: Apixaban 5 MG TAB PO SCH (09:00)
[2022-09-01] MEDS ORDERED: Metoprolol Tartrate 50 MG TAB PO SCH (09:00)
[2022-09-01] MEDS ORDERED: Tamsulosin HCl 0.4 MG CAP PO SCH ×2 (09:00→21:00)
[2022-09-01] MEDS ORDERED: Finasteride 5 MG TAB PO SCH (09:00)
[2022-09-01] MEDS ORDERED: Folic Acid 1 MG TAB PO SCH (09:00)
[2022-09-01] MEDS ORDERED: Amlodipine 5 MG TAB ONE (09:02)
[2022-09-01] MEDS ORDERED: Folic Acid 1 MG TAB ONE (09:02)
[2022-09-01] MEDS ORDERED: Metoprolol Tartrate 25 MG TAB ONE (09:02)
[2022-09-01] MEDS: Senokot S 8.6-50 MG TAB PO SCH ×2 (09:56→20:38)
[2022-09-01 15:43] VITALS: BMI 25.9
[2022-09-01] MEDS ORDERED: Guaifenesin DM 100-10/5 ML UDCUP PO PRN (18:38)
[2022-09-01] MEDS: Apixaban 5 MG TAB PO SCH (20:39)
[2022-09-01] MEDS: Cyanocobalamin (Vitamin B-12) 1,000 MCG TAB PO SCH (20:39)
[2022-09-01] MEDS: Metoprolol Tartrate 50 MG TAB PO SCH (20:39)
[2022-09-01] MEDS: Atorvastatin Calcium 10 MG TAB PO SCH (20:40)
[2022-09-01] MEDS: cefTRIAXone\\ROCEPHIN 1 GM in Sodium Chloride 0.9% 100 ML IVPB SCH (20:53)
[2022-09-01] MEDS ORDERED: Simvastatin 20 MG TAB PO SCH (21:00)
[2022-09-02] MEDS: Doxycycline 100 MG in Sodium Chloride 0.9% 100 ML IVPB SCH ×2 (02:30→15:46)
[2022-09-02 05:14] LABS: #Eosinphils 0.1 thou/uL (0.0-0.7); #Lymphocytes 1.1 thou/uL (1.20-3.40); #Monocytes 0.4 thou/uL (0.11-0.59); #Neutrophils 2.1 thou/uL (1.40-6.50); %Basophils 0.2 % (0.0-1.0); %Eosinophils 1.6 % (0.0-10.0); %Lymphocytes 30.6 % (21.0-51.0); %Monocytes 11.1 % (0.0-10.0); %Neutrophils 56.5 % (42.0-75.0); Hemoglobin 12.7 g/dL (14.0-18.0); Mean Corpuscular HGB CONC 33.3 g/dL (32.0-36.0); Mean Corpuscular Hemoglobin 30.6 pg (27.0-31.0); Mean Corpuscular Volume 92.1 fl (78.0-98.0); Mean Platelet Volume 10.7 fL (7.4-10.4); Platelet Count 161 10x3/uL (130-400); RBC Distribution Width 14.7 % (11.5-14.5); Red Blood Cell (RBC) Count 4.15 mill/uL (4.70-6.10); White Blood Cell (WBC) Count 3.7 10x3/uL (4.8-10.8)
[2022-09-02 05:36] LABS: Anion Gap 12 mmol/L (10-20); BUN (Urea Nitrogen) 19 mg/dL (8.4-25.7); Calc. Creatinine Clearance 66 mL/min (70-130); Calcium 9.3 mg/dL (7.8-10.44); Carbon Dioxide 22 mmol/L (23-31); Chloride 110 mmol/L (98-107); Estimated GFR 77; Glucose 102 mg/dL (83-110); Potassium 4.1 mmol/L (3.5-5.1); Sodium 140 mmol/L (136-145)
[2022-09-02] MEDS: Apixaban 5 MG TAB PO SCH ×2 (10:14→21:00)
[2022-09-02] MEDS: Metoprolol Tartrate 50 MG TAB PO SCH ×2 (10:14→20:59)
[2022-09-02] MEDS: Amlodipine 5 MG TAB PO SCH (10:14)
[2022-09-02] MEDS: Folic Acid 1 MG TAB PO SCH (10:15)
[2022-09-02] MEDS: Senokot S 8.6-50 MG TAB PO SCH ×2 (10:15→21:01)
[2022-09-02] MEDS: Tamsulosin HCl 0.4 MG CAP PO SCH (10:15)
[2022-09-02] MEDS: Finasteride 5 MG TAB PO SCH (10:15)
[2022-09-02] MEDS: cefTRIAXone\\ROCEPHIN 1 GM in Sodium Chloride 0.9% 100 ML IVPB SCH (20:59)
[2022-09-02] MEDS: Cyanocobalamin (Vitamin B-12) 1,000 MCG TAB PO SCH (21:00)
[2022-09-02] MEDS: Atorvastatin Calcium 10 MG TAB PO SCH (21:00)
[2022-09-03] MEDS: Doxycycline 100 MG in Sodium Chloride 0.9% 100 ML IVPB SCH (01:59)
[2022-09-03] MEDS: traMADol HCl 50 MG TAB PO PRN ×2 (05:10→10:27)
[2022-09-03] MEDS ORDERED: Bisacodyl 5 MG TAB PO PRN (09:22)
[2022-09-03] MEDS ORDERED: Bisacodyl 5 MG TAB PO SCH (09:30)
[2022-09-03] MEDS: Tamsulosin HCl 0.4 MG CAP PO SCH (10:26)
[2022-09-03] MEDS: Amlodipine 5 MG TAB PO SCH (10:26)
[2022-09-03] MEDS: Senokot S 8.6-50 MG TAB PO SCH (10:27)
[2022-09-03] MEDS: Folic Acid 1 MG TAB PO SCH (10:28)
[2022-09-03] MEDS: Finasteride 5 MG TAB PO SCH (10:28)
[2022-09-03] MEDS: Metoprolol Tartrate 50 MG TAB PO SCH (10:28)
[2022-09-03] MEDS: Apixaban 5 MG TAB PO SCH (10:28)
[2022-09-03 15:47] VITALS: BP 112/79; TEMP 98
== END 2022-09-03 17:00 | disposition home health service (06) | DRG 193 ==
LOC: ERS 15:57 → ERHOLD 21:08 → 2NO 09-01 14:23
PROVIDERS: ADMIT Student in an Organized Health Care Education/Training Program; ATTEND Internal Medicine
PROC: 4A033R1 Measurement of Arterial Saturation, Peripheral, Percutaneous Approach (ICD-10-PCS; principal; 2022-08-31)
DX: J18.9 Pneumonia, unspecified organism (principal); G93.41 Metabolic encephalopathy; N39.0 Urinary tract infection, site not specified; I48.92 Unspecified atrial flutter; I13.0 Hypertensive heart and chronic kidney disease with heart failure and stage 1 through stage 4 chronic kidney disease, or unspecified chronic kidney disease; E78.00 Pure hypercholesterolemia, unspecified; N18.9 Chronic kidney disease, unspecified; F03.90 Unspecified dementia, unspecified severity, without behavioral disturbance, psychotic disturbance, mood disturbance, and anxiety; D63.1 Anemia in chronic kidney disease; N40.0 Benign prostatic hyperplasia without lower urinary tract symptoms; I50.9 Heart failure, unspecified; M10.9 Gout, unspecified; Z79.01 Long term (current) use of anticoagulants; Z79.899 Other long term (current) drug therapy; Z79.82 Long term (current) use of aspirin; Z98.49 Cataract extraction status, unspecified eye; Z95.5 Presence of coronary angioplasty implant and graft; Z90.49 Acquired absence of other specified parts of digestive tract; Z85.46 Personal history of malignant neoplasm of prostate
CPT/HCPCS: 36415; 70450; 71045; 80048; 80053; 80306; 80307; 81003; 81015; 82805; 83605; 83690; 83880; 84484; 85025; 87040; 87086; 93005; 96361; 96374; 96375; J0360; J0696; J2405; J3490; Q0162

== ENCOUNTER 2023-02-10 08:39 | Inpatient (IN) | payer MEDICARE, BC ==
[2023-02-10 09:41] LABS: #Eosinphils 0.1 thou/uL (0.0-0.7); #Monocytes 0.5 thou/uL (0.11-0.59); #Neutrophils 4.9 thou/uL (1.40-6.50); %Basophils 0.3 % (0.0-1.0); %Eosinophils 1.7 % (0.0-10.0); %Lymphocytes 21.3 % (21.0-51.0); %Monocytes 7.5 % (0.0-10.0); %Neutrophils 68.9 % (42.0-75.0); Hematocrit 35.9 % (42.0-52.0); Hemoglobin 11.7 g/dL (14.0-18.0); Mean Corpuscular HGB CONC 32.6 g/dL (32.0-36.0); Mean Corpuscular Hemoglobin 30.2 pg (27.0-31.0); Mean Corpuscular Volume 92.5 fl (78.0-98.0); Mean Platelet Volume 10.9 fL (7.4-10.4); Platelet Count 240 10x3/uL (130-400); Red Blood Cell (RBC) Count 3.88 mill/uL (4.70-6.10); White Blood Cell (WBC) Count 7.1 10x3/uL (4.8-10.8)
[2023-02-10 09:56] LABS: INR-International Normal Ratio 1.7; PTT 40.9 sec (22.9-36.1); Prothrombin Time 20.3 sec (12.0-14.7)
[2023-02-10 10:05] LABS: ALT (SGPT) 18 U/L (8-55); AST (SGOT) 28 U/L (5-34); Albumin 3.4 g/dL (3.4-4.8); Alkaline Phosphatase 106 U/L (40-110); Anion Gap 13 mmol/L (10-20); BUN (Urea Nitrogen) 23 mg/dL (8.4-25.7); Bilirubin, Total 0.4 mg/dL (0.2-1.2); Calc. Creatinine Clearance 0 mL/min (70-130); Calcium 9.8 mg/dL (7.8-10.44); Carbon Dioxide 20 mmol/L (23-31); Chloride 110 mmol/L (98-107); Estimated GFR 70; Globulin 4.2 g/dL (2.4-3.5); Glucose 120 mg/dL (83-110); Lipase 5 U/L (8-78); Magnesium 1.9 mg/dL (1.6-2.6); Potassium 4.3 mmol/L (3.5-5.1); Protein, Total 7.6 g/dL (5.8-8.1); Sodium 139 mmol/L (136-145)
[2023-02-10 10:08] LABS: Bilirubin Negative (Negative); Blood, Urine Negative (Negative); CAUTI Indications for Culture Dysuria,urgency,freq; Clarity Extra Turbid (Clear); Glucose, Urine (Dipstick) Normal (Negative); Ketone, Urine Negative (Negative); Leukocyte 500 Leu/uL (Negative); Nitrite Negative (Negative); Protein, Urine (Dipstick) 50 mg/dL (Neg-Trace); RBC/HPF 0-3 HPF (0-3); Specific Gravity, Urine 1.025 (1.002-1.036); Squamous Epithelial 0-3 HPF (0-3); Urobilinogen Normal mg/dL (Less than 2); WBC/HPF Greater than 50 HPF (0-3)
[2023-02-10 10:12] LABS: Bacteria/HPF 4+ HPF (None Seen); Urine Culture Reflex Yes Yes
[2023-02-10 10:15] LABS: Troponin I 0.039 ng/mL (< 0.028)
[2023-02-10] MEDS ORDERED: cefTRIAXone (ROCEPHIN) 2 GM VIAL ONE (11:31)
[2023-02-10] MEDS ORDERED: Ondansetron PF 4 MG/2 ML Vial IVP PRN (12:09)
[2023-02-10] MEDS ORDERED: Senokot S 8.6-50 MG TAB PO PRN (12:09)
[2023-02-10] MEDS ORDERED: Ondansetron ODT 4 MG TAB PO PRN (12:09)
[2023-02-10] MEDS ORDERED: Albuterol 200 PUFF (6.7GM INHALER) INH PRN (12:14)
[2023-02-10 12:54] VITALS: BMI 31.1
[2023-02-10 13:47] LABS: Troponin I 0.038 ng/mL (< 0.028)
[2023-02-10] MEDS: Metoprolol Tartrate 25 MG TAB PO SCH (21:09)
[2023-02-10] MEDS: Apixaban 5 MG TAB PO SCH (21:09)
[2023-02-11 04:31] LABS: #Eosinphils 0.1 thou/uL (0.0-0.7); #Monocytes 0.5 thou/uL (0.11-0.59); #Neutrophils 4.3 thou/uL (1.40-6.50); %Basophils 0.5 % (0.0-1.0); %Eosinophils 1.7 % (0.0-10.0); %Lymphocytes 22.7 % (21.0-51.0); %Monocytes 8.2 % (0.0-10.0); %Neutrophils 66.6 % (42.0-75.0); Hematocrit 36.8 % (42.0-52.0); Hemoglobin 11.9 g/dL (14.0-18.0); Mean Corpuscular HGB CONC 32.3 g/dL (32.0-36.0); Mean Corpuscular Hemoglobin 30.3 pg (27.0-31.0); Mean Corpuscular Volume 93.6 fl (78.0-98.0); Mean Platelet Volume 11.8 fL (7.4-10.4); Platelet Count 247 10x3/uL (130-400); RBC Distribution Width 14.8 % (11.5-14.5); Red Blood Cell (RBC) Count 3.93 mill/uL (4.70-6.10); White Blood Cell (WBC) Count 6.4 10x3/uL (4.8-10.8)
[2023-02-11 05:03] LABS: Anion Gap 12 mmol/L (10-20); BUN (Urea Nitrogen) 22 mg/dL (8.4-25.7); Calc. Creatinine Clearance 79 mL/min (70-130); Calcium 9.4 mg/dL (7.8-10.44); Carbon Dioxide 20 mmol/L (23-31); Chloride 111 mmol/L (98-107); Estimated GFR 76; Glucose 116 mg/dL (83-110); Potassium 4.1 mmol/L (3.5-5.1); Sodium 139 mmol/L (136-145)
[2023-02-11] MEDS: Tamsulosin HCl 0.4 MG CAP PO SCH (08:29)
[2023-02-11] MEDS: Folic Acid 1 MG TAB PO SCH (08:29)
[2023-02-11] MEDS: Apixaban 5 MG TAB PO SCH (08:29)
[2023-02-11] MEDS: Finasteride 5 MG TAB PO SCH (08:34)
[2023-02-11] MEDS ORDERED: dilTIAZem SR 90 MG CAP PO SCH (09:00)
[2023-02-11] MEDS ORDERED: Furosemide 40 MG/4 ML VIAL SLOW IVP SCH (12:30)
[2023-02-11] MEDS: cefTRIAXone\\ROCEPHIN 1 GM in Sodium Chloride 0.9% 100 ML IVPB SCH (12:43)
[2023-02-11] MEDS: Metoprolol Tartrate 25 MG TAB PO SCH ×2 (12:48→20:44)
[2023-02-11] MEDS: Furosemide 40 MG/4 ML VIAL SLOW IVP SCH (14:23)
[2023-02-11] MEDS: Colchicine 0.6 MG TAB PO SCH (20:44)
[2023-02-12] MEDS: Furosemide 40 MG/4 ML VIAL SLOW IVP SCH ×2 (05:06→15:03)
[2023-02-12 05:30] LABS: #Eosinphils 0.1 thou/uL (0.0-0.7); #Monocytes 0.6 thou/uL (0.11-0.59); #Neutrophils 4.7 thou/uL (1.40-6.50); %Basophils 0.3 % (0.0-1.0); %Eosinophils 1.5 % (0.0-10.0); %Lymphocytes 22.3 % (21.0-51.0); %Neutrophils 67.6 % (42.0-75.0); Hematocrit 36.7 % (42.0-52.0); Mean Corpuscular HGB CONC 32.7 g/dL (32.0-36.0); Mean Corpuscular Hemoglobin 30.4 pg (27.0-31.0); Mean Corpuscular Volume 92.9 fl (78.0-98.0); Platelet Count 234 10x3/uL (130-400); RBC Distribution Width 14.9 % (11.5-14.5); Red Blood Cell (RBC) Count 3.95 mill/uL (4.70-6.10); White Blood Cell (WBC) Count 6.9 10x3/uL (4.8-10.8)
[2023-02-12 05:52] LABS: Anion Gap 12 mmol/L (10-20); BUN (Urea Nitrogen) 25 mg/dL (8.4-25.7); Calc. Creatinine Clearance 66 mL/min (70-130); Calcium 9.3 mg/dL (7.8-10.44); Carbon Dioxide 23 mmol/L (23-31); Chloride 109 mmol/L (98-107); Estimated GFR 60; Glucose 129 mg/dL (83-110); Potassium 3.8 mmol/L (3.5-5.1); Sodium 140 mmol/L (136-145)
[2023-02-12] MEDS: Metoprolol Tartrate 25 MG TAB PO SCH ×2 (09:57→21:21)
[2023-02-12] MEDS: Finasteride 5 MG TAB PO SCH (09:57)
[2023-02-12] MEDS: Folic Acid 1 MG TAB PO SCH (09:57)
[2023-02-12] MEDS: Colchicine 0.6 MG TAB PO SCH ×2 (09:57→21:20)
[2023-02-12] MEDS: Acetaminophen 325 MG TAB PO PRN ×3 (09:57→21:20)
[2023-02-12] MEDS: Tamsulosin HCl 0.4 MG CAP PO SCH (09:57)
[2023-02-12] MEDS: cefTRIAXone\\ROCEPHIN 1 GM in Sodium Chloride 0.9% 100 ML IVPB SCH (12:15)
[2023-02-12 19:18] LABS: #Eosinphils 0.2 thou/uL (0.0-0.7); #Monocytes 0.5 thou/uL (0.11-0.59); %Basophils 0.4 % (0.0-1.0); %Eosinophils 2.3 % (0.0-10.0); %Lymphocytes 20.4 % (21.0-51.0); %Monocytes 6.8 % (0.0-10.0); %Neutrophils 69.7 % (42.0-75.0); Hematocrit 37.4 % (42.0-52.0); Hemoglobin 12.2 g/dL (14.0-18.0); Mean Corpuscular HGB CONC 32.6 g/dL (32.0-36.0); Mean Corpuscular Hemoglobin 29.9 pg (27.0-31.0); Mean Corpuscular Volume 91.7 fl (78.0-98.0); Mean Platelet Volume 11.6 fL (7.4-10.4); Platelet Count 255 10x3/uL (130-400); RBC Distribution Width 14.7 % (11.5-14.5); Red Blood Cell (RBC) Count 4.08 mill/uL (4.70-6.10); White Blood Cell (WBC) Count 7.1 10x3/uL (4.8-10.8)
[2023-02-12 19:47] LABS: Anion Gap 14 mmol/L (10-20); BUN (Urea Nitrogen) 34 mg/dL (8.4-25.7); Calc. Creatinine Clearance 52 mL/min (70-130); Calcium 9.3 mg/dL (7.8-10.44); Carbon Dioxide 22 mmol/L (23-31); Chloride 107 mmol/L (98-107); Estimated GFR 46; Glucose 145 mg/dL (83-110); Potassium 3.6 mmol/L (3.5-5.1); Sodium 139 mmol/L (136-145)
[2023-02-13] MEDS ORDERED: Furosemide 20 MG TAB PO SCH (09:00)
[2023-02-13 09:12] LABS: #Eosinphils 0.2 thou/uL (0.0-0.7); #Monocytes 0.6 thou/uL (0.11-0.59); #Neutrophils 5.4 thou/uL (1.40-6.50); %Basophils 0.4 % (0.0-1.0); %Lymphocytes 21.1 % (21.0-51.0); %Monocytes 7.6 % (0.0-10.0); %Neutrophils 68.6 % (42.0-75.0); Hematocrit 37.8 % (42.0-52.0); Hemoglobin 11.9 g/dL (14.0-18.0); Mean Corpuscular HGB CONC 31.5 g/dL (32.0-36.0); Mean Corpuscular Hemoglobin 29.5 pg (27.0-31.0); Mean Corpuscular Volume 93.8 fl (78.0-98.0); Mean Platelet Volume 12.3 fL (7.4-10.4); Platelet Count 217 10x3/uL (130-400); RBC Distribution Width 14.7 % (11.5-14.5); Red Blood Cell (RBC) Count 4.03 mill/uL (4.70-6.10); White Blood Cell (WBC) Count 7.9 10x3/uL (4.8-10.8)
[2023-02-13 09:31] LABS: Anion Gap 13 mmol/L (10-20); BUN (Urea Nitrogen) 34 mg/dL (8.4-25.7); Calc. Creatinine Clearance 59 mL/min (70-130); Calcium 9.5 mg/dL (7.8-10.44); Carbon Dioxide 24 mmol/L (23-31); Chloride 107 mmol/L (98-107); Estimated GFR 53; Glucose 126 mg/dL (83-110); Potassium 3.8 mmol/L (3.5-5.1); Sodium 140 mmol/L (136-145)
[2023-02-13] MEDS: Colchicine 0.6 MG TAB PO SCH ×2 (10:08→21:07)
[2023-02-13] MEDS: Tamsulosin HCl 0.4 MG CAP PO SCH (10:08)
[2023-02-13] MEDS: Folic Acid 1 MG TAB PO SCH (10:08)
[2023-02-13] MEDS: Finasteride 5 MG TAB PO SCH (10:09)
[2023-02-13] MEDS: Metoprolol Tartrate 25 MG TAB PO SCH ×2 (10:09→21:07)
[2023-02-13] MEDS: Ciprofloxacin 500 MG TAB PO SCH (21:07)
[2023-02-14] MEDS: Ciprofloxacin 500 MG TAB PO SCH ×2 (05:55→20:41)
[2023-02-14] MEDS: Folic Acid 1 MG TAB PO SCH (09:51)
[2023-02-14] MEDS: Tamsulosin HCl 0.4 MG CAP PO SCH (09:51)
[2023-02-14] MEDS: Finasteride 5 MG TAB PO SCH (09:51)
[2023-02-14] MEDS: Colchicine 0.6 MG TAB PO SCH ×2 (09:52→20:41)
[2023-02-14] MEDS: Metoprolol Tartrate 25 MG TAB PO SCH ×2 (09:52→20:41)
[2023-02-14 09:58] LABS: #Eosinphils 0.1 thou/uL (0.0-0.7); #Monocytes 0.4 thou/uL (0.11-0.59); #Neutrophils 3.8 thou/uL (1.40-6.50); %Basophils 0.4 % (0.0-1.0); %Eosinophils 1.6 % (0.0-10.0); %Monocytes 7.3 % (0.0-10.0); %Neutrophils 68.3 % (42.0-75.0); Hematocrit 36.6 % (42.0-52.0); Hemoglobin 11.7 g/dL (14.0-18.0); Mean Corpuscular Hemoglobin 29.8 pg (27.0-31.0); Mean Corpuscular Volume 93.1 fl (78.0-98.0); Mean Platelet Volume 11.5 fL (7.4-10.4); Platelet Count 243 10x3/uL (130-400); RBC Distribution Width 14.1 % (11.5-14.5); Red Blood Cell (RBC) Count 3.93 mill/uL (4.70-6.10); White Blood Cell (WBC) Count 5.6 10x3/uL (4.8-10.8)
[2023-02-14 10:18] LABS: Anion Gap 12 mmol/L (10-20); BUN (Urea Nitrogen) 29 mg/dL (8.4-25.7); Calc. Creatinine Clearance 72 mL/min (70-130); Calcium 9.6 mg/dL (7.8-10.44); Carbon Dioxide 22 mmol/L (23-31); Chloride 108 mmol/L (98-107); Estimated GFR 67; Glucose 117 mg/dL (83-110); Potassium 3.6 mmol/L (3.5-5.1); Sodium 138 mmol/L (136-145)
[2023-02-15 05:11] LABS: Anion Gap 12 mmol/L (10-20); BUN (Urea Nitrogen) 32 mg/dL (8.4-25.7); Calc. Creatinine Clearance 70 mL/min (70-130); Calcium 9.8 mg/dL (7.8-10.44); Carbon Dioxide 23 mmol/L (23-31); Chloride 109 mmol/L (98-107); Estimated GFR 66; Glucose 109 mg/dL (83-110); Potassium 3.8 mmol/L (3.5-5.1); Sodium 140 mmol/L (136-145)
[2023-02-15] MEDS: Ciprofloxacin 500 MG TAB PO SCH ×2 (05:24→20:38)
[2023-02-15] MEDS: Metoprolol Tartrate 25 MG TAB PO SCH ×2 (08:47→20:38)
[2023-02-15] MEDS: Tamsulosin HCl 0.4 MG CAP PO SCH (08:47)
[2023-02-15] MEDS: Colchicine 0.6 MG TAB PO SCH ×2 (08:47→20:38)
[2023-02-15] MEDS: Folic Acid 1 MG TAB PO SCH (08:47)
[2023-02-15] MEDS: Finasteride 5 MG TAB PO SCH (08:48)
[2023-02-16] MEDS: Ciprofloxacin 500 MG TAB PO SCH (06:48)
[2023-02-16] MEDS: Folic Acid 1 MG TAB PO SCH (09:06)
[2023-02-16] MEDS: Tamsulosin HCl 0.4 MG CAP PO SCH (09:06)
[2023-02-16] MEDS: Metoprolol Tartrate 25 MG TAB PO SCH (09:06)
[2023-02-16] MEDS: Colchicine 0.6 MG TAB PO SCH (09:06)
[2023-02-16] MEDS: Finasteride 5 MG TAB PO SCH (09:06)
[2023-02-16 11:49] VITALS: TEMP 97.2
[2023-02-16 13:03] VITALS: BP 158/106
== END 2023-02-16 16:43 | DRG 291 ==
LOC: SUATTDRO 08:39 → ERS 08:39 → ERHOLD 12:15 → 2NO 15:26
PROVIDERS: ADMIT Family Medicine; ATTEND Internal Medicine
DX: I13.0 Hypertensive heart and chronic kidney disease with heart failure and stage 1 through stage 4 chronic kidney disease, or unspecified chronic kidney disease (principal); I50.33 Acute on chronic diastolic (congestive) heart failure; N30.00 Acute cystitis without hematuria; I25.10 Atherosclerotic heart disease of native coronary artery without angina pectoris; N40.0 Benign prostatic hyperplasia without lower urinary tract symptoms; N18.9 Chronic kidney disease, unspecified; F03.90 Unspecified dementia, unspecified severity, without behavioral disturbance, psychotic disturbance, mood disturbance, and anxiety; D63.1 Anemia in chronic kidney disease; M10.9 Gout, unspecified; E78.00 Pure hypercholesterolemia, unspecified; R53.1 Weakness; I35.0 Nonrheumatic aortic (valve) stenosis; I48.0 Paroxysmal atrial fibrillation; M17.12 Unilateral primary osteoarthritis, left knee; R53.81 Other malaise; Z90.49 Acquired absence of other specified parts of digestive tract; Z79.899 Other long term (current) drug therapy; Z79.51 Long term (current) use of inhaled steroids; Z98.890 Other specified postprocedural states; Z95.5 Presence of coronary angioplasty implant and graft; Z98.49 Cataract extraction status, unspecified eye
CPT/HCPCS: 36415; 36416; 70551; 71045; 78451; 80048; 80053; 81001; 83690; 83735; 83880; 84484; 85025; 85610; 85730; 87077; 87086; 87186; 93005; 93306; 96365; A9500; J0696; J1940; J3490